=== PATIENT | male | born 1975 | race Caucasian/White ===

== ENCOUNTER → 2016-05-04 | Outpatient (CLI) | payer BC, OTHER ==
[2016-05-04 15:46] VITALS: BP 144/72; PULSE 60; RESP 16; TEMP 98.5; BMI 42.6
--- NOTE | 2016-05-15 20:08 | P.PN ---
Progress Note - Text DATE OF SERVICE: 05/04/2016 CHIEF COMPLAINT: Follow up sleeve gastrectomy. HISTORY OF PRESENT ILLNESS: Lang Lozoya is a 41-year-old gentleman who is now 2 years out from a sleeve gastrectomy on April 29, 2014. At his height of 6 feet 1 inch, his initial weight was 465 pounds. Today he comes in weighing 327 pounds. He has maintained a 138-pound weight loss. Body mass index is reduced from 60.6 down to 42.6. BMI point reduction is 18 points. He has achieved 50% excess weight loss. Since his last visit 1 month ago, he has actually gained 17 pounds, despite undergoing panniculectomy removal of over 10 pounds of skin. He comes in with complaints of new right-sided flank pain. Please note that his panniculectomy was 01/25/2016 and he is now over 3 months out. PAST MEDICAL HISTORY: 1. Dyslipidemia. 2. Diabetes type 2, resolved. 3. Hypertension. 4. Super morbid obesity. 5. Osteoarthritis. 6. Gout. 7. Panniculitis. PAST SURGICAL HISTORY: 1. Multiple orthopedic procedures of the ankles and knees. 2. Laparoscopic cholecystectomy. 3. Upper endoscopy. 4. Sleep study. 5. Status post sleeve gastrectomy. 6. Excision of back mass. 7. Status post panniculectomy. MEDICATIONS: 1. Multivitamin. 2. [place]. 3. Cipro. 4. Aspirin. ALLERGIES: Denies. SOCIAL HISTORY: Lifelong nontobacco user. He is . FAMILY HISTORY: Pertinent for super morbid obesity. He also has brother whose body mass index is over 40 who had a pulmonary embolism. No reports of gastrointestinal malignancies or cancers. REVIEW OF ORGAN SYSTEMS: CONSTITUTIONAL: [place] body weight for a 6 foot -2 frames total 180 pounds her initial weight of 4065 pounds. Present weight loss of 138 pounds. 50% excess weight loss. Body mass index reduced from 60.6 down to 42.6. GASTROINTESTINAL: No reports of gastroesophageal reflux disease. MUSCULOSKELETAL: History of gout along the bilateral feet, however, without recent attacks. Osteoarthritis of the bilateral hips and back, improved. RESPIRATORY: Moderate improvement of obstructive sleep apnea. HEENT: Denies any troubles with vision or hearing. ENDOCRINE: No reports of hypothyroidism. CARDIOVASCULAR: No reports of heart attack or chest pain. NEURO: No reports of seizure disorders or headaches. PSYCH: No reports of suicidal ideation; however, depression, controlled with Celexa. HEMATOLOGIC: Family history of DVTs including pulmonary embolism in his brother. PHYSICAL EXAM: VITAL SIGNS: 98.5, 60, 16, 144/72, 6 feet 1-1/2 inches, 327 pounds. Body mass index of 42.6. Percent excess weight loss of 50%. ABDOMEN: Soft. No recurrent palpable panniculitis. No ventral hernia. Tenderness noted along the right flank. ASSESSMENT: 1. Morbid obesity due to excess caloric intake. 2. Body mass index reduced from 63.1 down to 42.6. 3. History of gout. 4. Osteoarthritis of the lower back including the knees and ankles. 5. Status post sleeve gastrectomy. 6. Protein malnutrition secondary to inadequate protein intake. 7. Hypertension. 8. Diabetes type 2, resolved. 9. Dyslipidemia. 10. Vitamin A deficiency. 11. Hypothyroidism. 12. Secondary hyperparathyroidism. 13. Panniculitis, resolved. 14. Status post massive weight loss of 133 pounds. 15. Secondary hyperparathyroidism. 16. Iron deficiency anemia. 17. Status post panniculectomy. 18. Dietary surveillance and counseling. PLAN: 1. As he has new onset pain despite his surgery being over 3 months ago, he has a moderate weight gain, which puts him at risk for tearing along his new panniculectomy site. Recommend ultrasound of the right flank with possible fluid aspiration should a fluid collection be encountered. 2. In the interim, he has limited lifting as to prevent any recurrence of his ventral hernia. 3. I recommend bariatric metabolic panel, as he is now 2 years out. 4. Recommend followup upon completion of his bariatric metabolic panel as well as labs for further detail.
== END | disposition home or self-care (01) ==
LOC: BARWHC3 15:32
PROVIDERS: ATTEND Surgery Plastic and Reconstructive Surgery
DX: Z48.815 Encounter for surgical aftercare following surgery on the digestive system (principal); Z98.84 Bariatric surgery status; E21.1 Secondary hyperparathyroidism, not elsewhere classified; E89.1 Postprocedural hypoinsulinemia; D50.8 Other iron deficiency anemias; E44.0 Moderate protein-calorie malnutrition; E55.9 Vitamin D deficiency, unspecified; K74.1 Hepatic sclerosis; N19 Unspecified kidney failure; K50.90 Crohn's disease, unspecified, without complications; Z79.899 Other long term (current) drug therapy; M79.3 Panniculitis, unspecified; Z68.41 Body mass index [BMI] 40.0-44.9, adult; R10.12 Left upper quadrant pain
CPT/HCPCS: 99211

== ENCOUNTER 2016-05-13 08:49 | Day surgery (SDC) | payer BC, OTHER ==
[2016-05-13 09:03] VITALS: RESP 16; TEMP 98.1
[2016-05-13 10:17] VITALS: BP 125/80; PULSE 68
--- NOTE | 2016-05-13 12:46 | US ---
EXAMINATION TYPE: US asp abscess/hemat/cyst DATE OF EXAM: 05/13/2016 10:19 AM HISTORY: Seroma and flank pain FINDINGS: Maximal barrier technique was utilized, ultrasound used with sterile technique. The skin o verlying a suitable path to the fluid was localized with ultrasound and the overlying skin prepped an d draped. Lidocaine was used for local anesthesia. A skin eusebio made with a scalpel. Access was gai mike under direct ultrasound guidance to the fluid with an 18-gauge needle. Aspiration was performed. 45 cc of mostly serous , minimal sanguinous fluid returned. Needle was removed. Hemostasis achieved. No immediate complication and the patient remained in stable condition. IMPRESSION: STATUS POST ULTRASOUND GUIDED SEROMA DRAINAGE, THIS PROCEDURE WAS PERFORMED BY THE UNDERS IGNED.
== END 2016-05-13 10:20 | disposition home or self-care (01) ==
LOC: RADPROMAIN 08:49
PROVIDERS: ATTEND Surgery Plastic and Reconstructive Surgery
DX: R10.32 Left lower quadrant pain (principal)
CPT/HCPCS: 10160

== ENCOUNTER → 2016-06-02 | Outpatient (CLI) | payer BC, OTHER ==
[2016-06-02 10:42] VITALS: BP 137/80; PULSE 85; RESP 16; TEMP 98.2; BMI 59.5
[2016-06-02 11:58] LABS: CH 28.2; CHCM 32.2; HCT 43.2 % (39.0-53.0); HDW 2.47; HGB 13.8 gm/dL (13.0-17.5); MCH 28.1 pg (25.0-35.0); MCV 87.7 fL (80.0-100.0); Mean Platelet Volume 8.1; RBC 4.93 m/uL (4.30-5.90); RDW 13.3 % (11.5-15.5); WBC 7.3 k/uL (3.8-10.6)
[2016-06-02 12:42] LABS: ALT 26 U/L (21-72); AST 21 U/L (17-59); Alkaline Phosphatase 92 U/L (38-126); Anion Gap 11 mmol/L; Blood Urea Nitrogen 25 mg/dL (9-20); Calcium 9.3 mg/dL (8.4-10.2); Carbon Dioxide 27 mmol/L (22-30); Chloride 106 mmol/L (98-107); Cholesterol 224 mg/dL (<200); Glucose 90 mg/dL (74-99); HDL Cholesterol 52 mg/dL (40-60); Iron 68 ug/dL (49-181); Magnesium 2.1 mg/dL (1.6-2.3); Non-African American GFR(MDRD) >60 (>60 ml/min/1.73 sqM); Phosphorous 2.9 mg/dL (2.5-4.5); Potassium 4.3 mmol/L (3.5-5.1); Sodium 144 mmol/L (137-145); Total Bilirubin 0.5 mg/dL (0.2-1.3); Total Protein 7.4 g/dL (6.3-8.2); Triglycerides 117 mg/dL (<150)
[2016-06-02 12:43] LABS: INR 1.1 (<1.1); Partial Thromboplastin Time 24.3 sec (22.0-30.0); Prothrombin Time 10.7 sec (9.0-12.0)
[2016-06-02 12:59] LABS: Prealbumin 20 mg/dL (18-36); Total Iron Binding Capacity 296 ug/dL (261-462)
[2016-06-02 13:50] LABS: Vitamin B12 417 pg/mL (239-931)
[2016-06-02 14:07] LABS: Hemoglobin A1C 5.6 % (4.2-6.1)
[2016-06-08 14:03] LABS: Selenium 179 mcg/L (63-160)
--- NOTE | 2016-07-24 20:03 | P.PN ---
Progress Note - Text DATE OF SERVICE: 06/02/2016 CHIEF COMPLAINT: Followup sleeve gastrectomy. HISTORY OF PRESENT ILLNESS: Lang Lozoya is a 41-year-old gentleman who is over 2 years out from a sleeve gastrectomy. At his height of 6 foot 1 inch, his ideal body weight is 181 pounds. His initial weight was 465 pounds. Today he comes in weighing 320 pounds. Since his last visit a month ago, he has lost 7 pounds. His total weight loss is 145 pounds. His percent excess weight loss is over 50%. He is still, however, 189 pounds overweight. Body mass index has been reduced from 60.6 down to 41.7. He has a history of a panniculectomy performed in January 2016. He also was complaining of swelling and pain along the right flank which is consistent with seroma. Now he presents for further evaluation and management. Since his panniculectomy, incidentally, he has regained moderate weight of over 20+ pounds. PAST MEDICAL HISTORY: 1. Dyslipidemia. 2. Diabetes type 2, resolved. 3. Hypertension. 4. Super morbid obesity. 5. Osteoarthritis. 6. Gout. 7. Panniculitis. PAST SURGICAL HISTORY: 1. Multiple orthopedic procedures of the ankles and knees. 2. Laparoscopic cholecystectomy. 3. Upper endoscopy. 4. Sleep study. 5. Status post sleeve gastrectomy. 6. Excision of back mass. 7. Status post panniculectomy. MEDICATIONS: 1. Multivitamin. 2. [place]. 3. Cipro. 4. Aspirin. ALLERGIES: Denies. SOCIAL HISTORY: Lifelong nontobacco user. He is . FAMILY HISTORY: Pertinent for super morbid obesity. He also has brother whose body mass index is over 40 who had a pulmonary embolism. No reports of gastrointestinal malignancies or cancers. REVIEW OF SYSTEMS: CONSTITUTIONAL: [place] body weight of 188 pounds. Initial weight of 465 pounds. Total maintained weight loss of 145 pounds. Today he comes in weighing 320 pounds. Since his last visit a month ago, he has lost 7 pounds. His total weight loss is 145 pounds. His percent excess weight loss is over 50%. He is still, however, 189 pounds overweight. Body mass index has been reduced from 60.6 down to 41.7. GASTROINTESTINAL: No reports of gastroesophageal reflux disease. MUSCULOSKELETAL: History of gout of the bilateral feet without any recent attacks. Osteoarthritis of the bilateral hips and back is improved. RESPIRATORY: Moderate improvement of obstructive sleep apnea. HEENT: Denies any troubles with vision or hearing. ENDOCRINE: No reports of hypothyroidism. CARDIOVASCULAR: No reports of heart attack or chest pain. NEURO: No reports of seizure disorders or headaches. PSYCH: No reports of suicidal ideation; however, depression, controlled with Celexa. HEMATOLOGIC: Family history of DVTs including pulmonary embolism in his brother. PHYSICAL EXAM: VITAL SIGNS: 98.2, 85, 16, 137/80, 6 foot 1-04/18, 320 pounds, body mass index of 41.7. ABDOMEN: Soft, nontender, nondistended. Decreased swelling noted along the right flank. No palpable incisional hernias. GENERAL: Well-developed male in no distress. HEENT: No sclera icterus. Extraocular movements grossly intact. Moist buccal mucosa. Head is atraumatic, normocephalic. Hears conversational speech. No nasal drainage. NECK: Supple without lymphadenopathy. No JV distention. CHEST: Non-labored respirations and equal bilateral excursions. CARDIOVASCULAR: Regular rate and rhythm. Palpable 2+ radial pulses. MUSCULOSKELETAL: No clubbing, cyanosis or edema. NEUROLOGIC: No focal or lateralizing signs. PSYCH: Appropriate affect. Alert and oriented to person, place and time. LABS: Hemoglobin normal at 13.8. BUN elevated at 25. Cholesterol elevated at 224. LDL elevated at 149. Vitamin A low at 35. Thyroid-stimulating hormone suppressed at 0.247. Parathyroid hormone elevated at 79.4. Selenium elevated at 179. STUDIES: Ultrasound of the right flank demonstrated at 45 mL of seroma, which was aspirated. ASSESSMENT: 1. Morbid obesity due to excess caloric intake. 2. Body mass index reduced from 60.6 down to 41.7. 3. History of gout. 4. Osteoarthritis of the lower back including the knees and ankles. 5. Status post sleeve gastrectomy. 6. Protein malnutrition secondary to inadequate protein intake. 7. Hypertension. 8. Diabetes type 2, resolved. 9. Dyslipidemia. 10. Vitamin A deficiency. 11. Hypothyroidism. 12. Secondary hyperparathyroidism. 13. Panniculitis, resolved. 14. Status post weight loss 145 pounds. 15. Secondary hyperparathyroidism. 16. Iron deficiency anemia. 17. Status post panniculectomy. 18. Dietary surveillance and counseling. 19. Recent weight regain following weight loss procedure. 20. History of seroma right flank. PLAN: 1. I reviewed with him that weight gain following his panniculectomy including recent ventral hernia repair can also puts him at risk of tearing his recent surgery, hence his seromas. 2. I adamantly forewarned him to actually continue to lose weight preferably to his baseline of 300 pounds. 3. He will benefit from additional weight loss as he is still at least 189 pounds overweight. 4. Recommend followup at minimum on a yearly basis as well. 5. Recommend calcium intake of at least 1200 mg daily.
== END | disposition home or self-care (01) ==
LOC: BARWHC3 10:05
PROVIDERS: ATTEND Surgery Plastic and Reconstructive Surgery
DX: Z48.815 Encounter for surgical aftercare following surgery on the digestive system (principal); E66.01 Morbid (severe) obesity due to excess calories; Z98.84 Bariatric surgery status; E21.1 Secondary hyperparathyroidism, not elsewhere classified; E89.1 Postprocedural hypoinsulinemia; D50.8 Other iron deficiency anemias; E44.0 Moderate protein-calorie malnutrition; E55.9 Vitamin D deficiency, unspecified; K74.1 Hepatic sclerosis; N19 Unspecified kidney failure; K50.90 Crohn's disease, unspecified, without complications
CPT/HCPCS: 80053; 80061; 82306; 82525; 82607; 82728; 82746; 83036; 83540; 83550; 83735; 83970; 84100; 84134; 84255; 84425; 84443; 84590; 84630; 85027; 85610; 85730; 99211

== ENCOUNTER → 2017-05-17 | Outpatient (CLI) | payer BC ==
[2017-05-17 14:18] VITALS: BP 145/97; PULSE 70; TEMP 98.6
[2017-05-17 14:36] VITALS: BMI 46.0
--- NOTE | 2017-06-18 17:56 | P.PN ---
Subjective Progress Note Date: 05/17/17 DATE OF SERVICE: 05/17/2017 CHIEF COMPLAINT: Followup sleeve gastrectomy. HISTORY OF PRESENT ILLNESS: Lang Lozoya is a 42-year-old gentleman who is status post sleeve gastrectomy, 04/29/2014. He is 3 years out. Since his panniculectomy over a year ago, he has gained moderate weight of 34 pounds since his last visit 1 year ago. He denies any heartburn. He is eager to get back on track. 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 He still reports bilateral foot pain since placement of a foot brace and his pain has improved. At his height of 6 foot 1 inch, his ideal body weight is 181 pounds. His initial weight was 465 pounds. Today he comes in weighing 353 pounds. His total weight loss is 111 pounds. His percent excess weight loss is over 40%. He is still, however, 165 pounds overweight. Body mass index has been reduced from 61.5 down to 46.7. He has a history of a panniculectomy performed in January 2016. No reports of abdominal wall seroma. PAST MEDICAL HISTORY: 1. Dyslipidemia. 2. Diabetes type 2, resolved. 3. Hypertension. 4. Super morbid obesity, previous body mass index 61.5. 5. Osteoarthritis. 6. Gout. 7. Obstructive sleep apnea PAST SURGICAL HISTORY: 1. Multiple orthopedic procedures of the ankles and knees. 2. Laparoscopic cholecystectomy. 3. Upper endoscopy. 4. Sleep study. 5. Status post sleeve gastrectomy. 6. Excision of back mass. 7. Status post panniculectomy. MEDICATIONS: 1. Multivitamin. ALLERGIES: Denies. SOCIAL HISTORY: Lifelong nontobacco user. He is . FAMILY HISTORY: Pertinent for super morbid obesity. He also has brother whose body mass index is over 40 who had a pulmonary embolism. No reports of gastrointestinal malignancies or cancers. REVIEW OF SYSTEMS: CONSTITUTIONAL: [place] body weight of 188 pounds. Initial weight of 465 pounds. Total maintained weight loss of 112 pounds. Today he comes in weighing 353 pounds. His percent excess weight loss is 40%. He is still, however, 165 pounds overweight. Body mass index has been reduced from 61.5 down to 46.1. He has gained 33 pounds since his last visit May 2016. GASTROINTESTINAL: No reports of gastroesophageal reflux disease. No dumping syndrome. MUSCULOSKELETAL: History of gout of the bilateral feet without any recent attacks. Osteoarthritis of the bilateral hips and back is improved. RESPIRATORY: Moderate improvement of obstructive sleep apnea. HEENT: Denies any troubles with vision or hearing. ENDOCRINE: No reports of hypothyroidism. CARDIOVASCULAR: No reports of heart attack or chest pain. NEURO: No reports of seizure disorders or headaches. PSYCH: No reports of suicidal ideation; however, depression, controlled with Celexa. HEMATOLOGIC: Family history of DVTs including pulmonary embolism in his brother. PHYSICAL EXAM: VITAL SIGNS: 6 foot 1-04/18, 353 pounds, body mass index of 46.1 Vital Signs Temp 98.6 F 05/17/17 14:15 Pulse 70 05/17/17 14:15 Resp BP 145/97 05/17/17 14:15 Pulse Ox ABDOMEN: Soft, nontender, nondistended. No incisional hernias. GENERAL: Well-developed male in no distress. HEENT: No sclera icterus. Extraocular movements grossly intact. Moist buccal mucosa. Head is atraumatic, normocephalic. Hears conversational speech. No nasal drainage. NECK: Supple without lymphadenopathy. No JV distention. CHEST: Non-labored respirations and equal bilateral excursions. CARDIOVASCULAR: Regular rate and rhythm. Palpable 2+ radial pulses. MUSCULOSKELETAL: No clubbing, cyanosis or edema. NEUROLOGIC: No focal or lateralizing signs. PSYCH: Appropriate affect. Alert and oriented to person, place and time. SKIN: Good skin turgor. Well perfused. ASSESSMENT: 1. Morbid obesity due to excess caloric intake. 2. Body mass index reduced from 61.5 down to 46.1. 3. History of gout. 4. Osteoarthritis of the lower back including the knees and ankles. 5. Status post sleeve gastrectomy. 6. Dietary surveillance and counseling. 7. Hypertension. 8. Diabetes type 2, resolved. 9. Dyslipidemia. 10. Vitamin A deficiency. 11. Hypothyroidism. 12. Secondary hyperparathyroidism. 13. Panniculitis, resolved. 14. Status post weight loss 112 pounds. 15. Status post panniculectomy. 16. Recent weight regain following weight loss procedure. PLAN: 1. Recommend bariatric panel. 2. Recommend 2 week high-protein low caloric diet. 3. Recommend follow-up in 3-4 weeks. 4. Referral to bariatric dietitian advised. 5. Return to high-protein diet placed over 120 g daily. Objective - Vital Signs Vital signs: Vital Signs Temp 98.6 F 05/17/17 14:15 Pulse 70 05/17/17 14:15 Resp BP 145/97 05/17/17 14:15 Pulse Ox Intake & Output 05/16/17 05/17/17 05/17/17 18:59 06:59 18:59 Weight 160.526 kg
== END | disposition home or self-care (01) ==
LOC: BARWHC3 13:21
PROVIDERS: ATTEND Surgery Plastic and Reconstructive Surgery
DX: Z09 Encounter for follow-up examination after completed treatment for conditions other than malignant neoplasm (principal); E66.01 Morbid (severe) obesity due to excess calories; M10.9 Gout, unspecified; M17.0 Bilateral primary osteoarthritis of knee; M19.072 Primary osteoarthritis, left ankle and foot; M19.071 Primary osteoarthritis, right ankle and foot; I10 Essential (primary) hypertension; E78.5 Hyperlipidemia, unspecified; E50.9 Vitamin A deficiency, unspecified; E03.9 Hypothyroidism, unspecified; N25.81 Secondary hyperparathyroidism of renal origin; G47.33 Obstructive sleep apnea (adult) (pediatric); Z98.890 Other specified postprocedural states; Z71.3 Dietary counseling and surveillance; Z98.84 Bariatric surgery status; Z68.42 Body mass index [BMI] 45.0-49.9, adult; Z79.899 Other long term (current) drug therapy
CPT/HCPCS: 97803; 99211

== ENCOUNTER → 2017-05-26 | Outpatient (CLI) | payer BC ==
[2017-05-26 10:16] LABS: HCT 46.9 % (39.0-53.0); HGB 15.1 gm/dL (13.0-17.5); MCHC 32.1 g/dL (31.0-37.0); MCV 90.4 fL (80.0-100.0); Mean Platelet Volume 6.8; Platelet Count 211 k/uL (150-450); RBC 5.19 m/uL (4.30-5.90); RDW 12.6 % (11.5-15.5); WBC 6.7 k/uL (3.8-10.6)
[2017-05-26 10:20] LABS: INR 1.1 (<1.2); Partial Thromboplastin Time 24.8 sec (22.0-30.0); Prothrombin Time 10.9 sec (9.0-12.0)
[2017-05-26 10:36] LABS: Cholesterol 213 mg/dL (<200); Glucose 106 mg/dL (74-99); Total Protein 7.1 g/dL (6.3-8.2); Triglycerides 87 mg/dL (<150)
[2017-05-26 10:37] LABS: ALT 28 U/L (21-72); AST 27 U/L (17-59); Alkaline Phosphatase 75 U/L (38-126); Anion Gap 9 mmol/L; Blood Urea Nitrogen 14 mg/dL (9-20); Calcium 9.9 mg/dL (8.4-10.2); Carbon Dioxide 29 mmol/L (22-30); Chloride 106 mmol/L (98-107); HDL Cholesterol 37 mg/dL (40-60); LDL Cholesterol,Calculated 159 mg/dL (0-99); Magnesium 2.1 mg/dL (1.6-2.3); Phosphorus 2.4 mg/dL (2.5-4.5); Potassium 4.3 mmol/L (3.5-5.1); Sodium 144 mmol/L (137-145); Total Bilirubin 0.5 mg/dL (0.2-1.3)
[2017-05-26 16:18] LABS: Iron Saturation 29.32 (15.00-50.00)
[2017-05-26 16:26] LABS: Vitamin D 25 Hydroxy 19.1 ng/mL (30.0-100.0)
[2017-05-26 16:41] LABS: Folate, Serum 13.8 ng/mL
[2017-05-26 18:24] LABS: Parathyroid Hormone Intact 44.3 pg/mL (14.0-72.0)
[2017-05-26 19:09] LABS: Hemoglobin A1C 5.2 % (4.0-6.0)
[2017-05-29 12:14] LABS: Zinc, Serum 65 ug/dL (60-130)
[2017-05-30 06:11] LABS: Vitamin A 35 ug/dL (38-106)
[2017-05-30 15:31] LABS: Selenium 126 mcg/L (63-160)
[2017-05-31 05:04] LABS: Vitamin B1 66 ug/L (38-122)
== END | disposition home or self-care (01) ==
LOC: LABWHC1 09:17
PROVIDERS: ATTEND Surgery Plastic and Reconstructive Surgery
DX: E66.01 Morbid (severe) obesity due to excess calories (principal); E21.1 Secondary hyperparathyroidism, not elsewhere classified; E89.1 Postprocedural hypoinsulinemia; D50.8 Other iron deficiency anemias; E55.9 Vitamin D deficiency, unspecified; K74.1 Hepatic sclerosis; E44.1 Mild protein-calorie malnutrition; K50.90 Crohn's disease, unspecified, without complications
CPT/HCPCS: 36415; 80053; 80061; 82306; 82525; 82607; 82728; 82746; 83036; 83540; 83550; 83735; 83970; 84100; 84134; 84255; 84425; 84443; 84590; 84630; 85027; 85610; 85730

== ENCOUNTER 2017-11-18 10:08 | Emergency (ER) | payer BC ==
[2017-11-18 10:20] VITALS: RESP 18; TEMP 98.4
[2017-11-18] MEDS ORDERED: SODIUM CHLORIDE 0.9% 1,000 ML IV STA (10:42)
[2017-11-18] MEDS ORDERED: MORPHINE SULFATE 4 MG/ML SYRINGE IV STA (10:42)
[2017-11-18] MEDS ORDERED: SODIUM CHLORIDE 0.9% 500 ML IV STA (10:42)
--- NOTE | 2017-11-18 11:09 | ED ---
General Adult HPI - General Chief complaint: Abdominal Pain Stated complaint: Trouble breathing with RUQ pin Time Seen by Provider: 11/18/17 10:38 Source: patient, RN notes reviewed, old records reviewed Mode of arrival: ambulatory Limitations: no limitations - History of Present Illness Initial comments: This is a 42-year-old male the ER for evaluation. Patient is complaining of right-sided abdominal pain right flank pain. Patient has significant medical history for bariatric surgery as well as multiple other abdominal surgeries. Patient seems related events to massage that he had a couple days ago but he states he has worsening pain with a deep breath and pain in his right side of his abdomen. Denies fevers. Bowel movements are normal with no nausea vomiting. - Related Data Home Medications Medication Instructions Recorded Confirmed Multivitamins, Thera [Multivitamin 1 tab PO DAILY 01/19/16 05/17/17 (formulary)] Allergies Allergy/AdvReac Type Severity Reaction Status Date / Time cephalexin [From Keflex] AdvReac Rash/Hives Verified 05/18/17 15:40 Review of Systems ROS Statement: Those systems with pertinent positive or pertinent negative responses have been documented in the HPI. ROS Other: All systems not noted in ROS Statement are negative. 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 PANNICULECTOMY January 2016; Past Anesthesia/Blood Transfusion Reactions: No Reported Reaction Additional Past Anesthesia/Blood Transfusion Reaction / Comment(s): STATES TAKES LONG TIME TO WAKE UP Past Psychological History: No Psychological Hx Reported Smoking Status: Never smoker Past Alcohol Use History: None Reported Past Drug Use History: None Reported - Past Family History Father History Unknown: Yes Family Medical History: Congestive Heart Failure (CHF), Myocardial Infarction ( [place]) Additional Family Medical History / Comment(s): SEVERAL [place]'S Mother Family Medical History: No Reported History Additional Family Medical History / Comment(s): HEALTHY Brother(s) History Unknown: Yes Family Medical History: Deep Vein Thrombosis (DVT), Pulmonary Embolus General Exam Limitations: no limitations General appearance: alert, in no apparent distress, obese Head exam: Present: atraumatic, normocephalic, normal inspection Eye exam: Present: normal appearance, PERRL, EOMI. Absent: scleral icterus, conjunctival injection, periorbital swelling ENT exam: Present: normal exam, mucous membranes moist Neck exam: Present: normal inspection. Absent: tenderness, meningismus, lymphadenopathy Respiratory exam: Present: normal lung sounds bilaterally. Absent: respiratory distress, wheezes, rales, rhonchi, stridor Cardiovascular Exam: Present: regular rate, normal rhythm, normal heart sounds. Absent: systolic murmur, diastolic murmur, rubs, gallop, clicks GI/Abdominal exam: Present: soft, tenderness (Right-sided abdominal tenderness) , normal bowel sounds. Absent: distended, guarding, rebound, rigid Extremities exam: Present: normal inspection, full ROM, normal capillary refill. Absent: tenderness, pedal edema, joint swelling, calf tenderness Back exam: Present: normal inspection Neurological exam: Present: alert, oriented X3, CN II-XII intact Psychiatric exam: Present: normal affect, normal mood Skin exam: Present: warm, dry, intact, normal color. Absent: rash Course Vital Signs 11/18/17 10:15 Temperature 98.4 F Pulse Rate 75 Respiratory 18 Rate Blood Pressure 145/95 - Reevaluation(s) Reevaluation #1: 11/18/17 13:15 Patient's pain is currently controlled Medical Decision Making - Medical Decision Making 39 female the ER for evaluation of nonspecific abdominal pain CT abdomen and pelvis negative for acute disease patient will be discharged home - Lab Data Result diagrams: 11/18/17 11:28 11/18/17 11:28 Lab Results 11/18/17 11/18/17 11/18/17 Range/Units 11:28 11:28 11:28 WBC 6.6 (3.8-10.6) k/uL RBC 5.18 (4.30-5.90) m/uL Hgb 14.7 (13.0-17.5) gm/dL Hct 44.9 (39.0-53.0) % MCV 86.7 (80.0-100.0) fL MCH 28.4 (25.0-35.0) pg MCHC 32.7 (31.0-37.0) g/dL RDW 12.9 (11.5-15.5) % Plt Count 197 (150-450) k/uL Neutrophils % 53 % Lymphocytes % 38 % Monocytes % 5 % Eosinophils % 3 % Basophils % 0 % Neutrophils # 3.5 (1.3-7.7) k/uL Lymphocytes # 2.5 (1.0-4.8) k/uL Monocytes # 0.3 (0-1.0) k/uL Eosinophils # 0.2 (0-0.7) k/uL Basophils # 0.0 (0-0.2) k/uL Sodium 143 (137-145) mmol/L Potassium 4.0 (3.5-5.1) mmol/L Chloride 110 H (98-107) mmol/L Carbon Dioxide 25 (22-30) mmol/L Anion Gap 8 mmol/L BUN 21 H (9-20) mg/dL Creatinine 0.70 (0.66-1.25) mg/dL Est GFR (CKD-EPI)AfAm >90 (>60 ml/min/1.73 sqM) Est GFR (CKD-EPI)NonAf >90 (>60 ml/min/1.73 sqM) Glucose 112 H (74-99) mg/dL Plasma Lactic Acid Gerard (0.7-2.0) mmol/L Calcium 9.2 (8.4-10.2) mg/dL Total Bilirubin 0.4 (0.2-1.3) mg/dL AST 25 (17-59) U/L ALT 30 (21-72) U/L Alkaline Phosphatase 62 (38-126) U/L Total Creatine Kinase 74 (55-170) U/L CK-MB (CK-2) 1.0 (0.0-2.4) ng/mL CK-MB (CK-2) Rel Index 1.4 Troponin I <0.012 (0.000-0.034) ng/mL Total Protein 6.9 (6.3-8.2) g/dL Albumin 4.0 (3.5-5.0) g/dL Amylase 45 (30-110) U/L Lipase 49 (23-300) U/L 11/18/17 Range/Units 11:28 WBC (3.8-10.6) k/uL RBC (4.30-5.90) m/uL Hgb (13.0-17.5) gm/dL Hct (39.0-53.0) % MCV (80.0-100.0) fL MCH (25.0-35.0) pg MCHC (31.0-37.0) g/dL RDW (11.5-15.5) % Plt Count (150-450) k/uL Neutrophils % % Lymphocytes % % Monocytes % % Eosinophils % % Basophils % % Neutrophils # (1.3-7.7) k/uL Lymphocytes # (1.0-4.8) k/uL Monocytes # (0-1.0) k/uL Eosinophils # (0-0.7) k/uL Basophils # (0-0.2) k/uL Sodium (137-145) mmol/L Potassium (3.5-5.1) mmol/L Chloride (98-107) mmol/L Carbon Dioxide (22-30) mmol/L Anion Gap mmol/L BUN (9-20) mg/dL Creatinine (0.66-1.25) mg/dL Est GFR (CKD-EPI)AfAm (>60 ml/min/1.73 sqM) Est GFR (CKD-EPI)NonAf (>60 ml/min/1.73 sqM) Glucose (74-99) mg/dL Plasma Lactic Acid Gerard 1.4 (0.7-2.0) mmol/L Calcium (8.4-10.2) mg/dL Total Bilirubin (0.2-1.3) mg/dL AST (17-59) U/L ALT (21-72) U/L Alkaline Phosphatase (38-126) U/L Total Creatine Kinase (55-170) U/L CK-MB (CK-2) (0.0-2.4) ng/mL CK-MB (CK-2) Rel Index Troponin I (0.000-0.034) ng/mL Total Protein (6.3-8.2) g/dL Albumin (3.5-5.0) g/dL Amylase (30-110) U/L Lipase (23-300) U/L - Radiology Data Radiology results: report reviewed (CT head and pelvis negative for acute disease), image reviewed Disposition Clinical Impression: Abdominal pain Disposition: HOME SELF-CARE Condition: Good Instructions: Abdominal Pain (ED) Is patient prescribed a controlled substance at d/c from ED?: No Referrals: Rodríguez Miranda III, MD [Primary Care Provider] - 1-2 days
[2017-11-18 11:38] LABS: Basophils % (A) 0 %; Eosinophils # (A) 0.2 k/uL (0-0.7); Eosinophils % (A) 3 %; HCT 44.9 % (39.0-53.0); HGB 14.7 gm/dL (13.0-17.5); Lymphocytes # (A) 2.5 k/uL (1.0-4.8); Lymphocytes % (A) 38 %; MCH 28.4 pg (25.0-35.0); MCHC 32.7 g/dL (31.0-37.0); MCV 86.7 fL (80.0-100.0); Mean Platelet Volume 6.7; Monocytes # (A) 0.3 k/uL (0-1.0); Monocytes % (A) 5 %; Neutrophils # (A) 3.5 k/uL (1.3-7.7); Neutrophils % (A) 53 %; Platelet Count 197 k/uL (150-450); RBC 5.18 m/uL (4.30-5.90); RDW 12.9 % (11.5-15.5); WBC 6.6 k/uL (3.8-10.6)
[2017-11-18 11:47] LABS: ALT 30 U/L (21-72); AST 25 U/L (17-59); Alkaline Phosphatase 62 U/L (38-126); Amylase 45 U/L (30-110); Anion Gap 8 mmol/L; Blood Urea Nitrogen 21 mg/dL (9-20); Calcium 9.2 mg/dL (8.4-10.2); Carbon Dioxide 25 mmol/L (22-30); Chloride 110 mmol/L (98-107); Glucose 112 mg/dL (74-99); Lipase 49 U/L (23-300); Sodium 143 mmol/L (137-145); Total Bilirubin 0.4 mg/dL (0.2-1.3); Total Protein 6.9 g/dL (6.3-8.2)
[2017-11-18 12:05] LABS: Creatine Kinase 74 U/L (55-170)
[2017-11-18 12:19] LABS: Troponin I <0.012 ng/mL (0.000-0.034)
--- NOTE | 2017-11-18 13:01 | CT ---
EXAMINATION TYPE: CT abdomen pelvis w con DATE OF EXAM: 11/18/2017 REFERENCE: Previous study dated 02/20/2016. HISTORY: abdominal pain HISTORY: RUQ pain CT DLP: 2079 mGy Automated exposure control for dose reduction was used. TECHNIQUE: Helical acquisition through the abdomen and pelvis was obtained following the oral ingesti on of without Oral Contrast and following intravenous administration of 100 mL of Isovue 300. The marion a was reformatted in axial, coronal and sagittal projections. FINDINGS: There is atelectatic changes at the dependent portions of both lungs. There is no pleural or pericardial fluid. The heart is upper limits of normal in size. Within the abdomen, is been a previous gastric sleeve procedure. There is a small hiatal hernia. The gallbladder is been removed. The liver and spleen are normal. Both adrenal glands are normal. The pancreas is unremarkable. Both kidneys demonstrate function and appear morphologically normal. There is no significant retroperitoneal or iliac adenopathy. There are some nonspecific inguinal lymp h nodes present. The largest measures just over 1 cm. The bladder is unremarkable. There is no significant diverticular change and there is no radiographic evidence of diverticulitis. The appendix is normal. Small bowel caliber is normal. There is no free fluid and no free air. There is stable postsurgical deformity of the rectus sheath. This is unchanged from previous. There is facet arthropathy in the lower lumbar spine. This hypertrophic spondylosis in the lower dors al spine. IMPRESSION: 1. NO ACUTE INFLAMMATORY ABNORMALITY. 2. POSTSURGICAL CHANGE. 3. DEGENERATIVE CHANGES WITHIN THE SPINE.
[2017-11-18 13:24] LABS: Appearance,Urine Clear (Clear); Bilirubin,Urine Negative (Negative); Blood,Urine Negative (Negative); Color,Urine Yellow; Glucose,Urine (UA) Negative (Negative); Ketones,Urine Negative (Negative); Leukocyte Esterase,Urine Negative (Negative); Nitrite,Urine Negative (Negative); PH, Urine 6.5 (5.0-8.0); Protein,Urine Negative (Negative); Specific Gravity,Urine 1.039 (1.001-1.035); Urobilinogen,Urine <2.0 mg/dL (<2.0)
[2017-11-18 13:54] VITALS: BP 148/79; PULSE 51
== END 2017-11-18 13:54 | disposition home or self-care (01) ==
LOC: EC 10:08
DX: R10.9 Unspecified abdominal pain (principal); Z88.1 Allergy status to other antibiotic agents; Z90.49 Acquired absence of other specified parts of digestive tract; Z98.84 Bariatric surgery status
CPT/HCPCS: 36415; 80053; 82150; 82550; 82553; 83605; 83690; 84484; 85025; 81003; 87086; 74177; 99284; 96374; 96361 ×2; J2270; Q9967

== ENCOUNTER 2017-11-18 21:18 | Emergency (ER) | payer BC ==
[2017-11-18 21:46] VITALS: BP 153/97; PULSE 71; RESP 20; TEMP 98.7
--- NOTE | 2017-11-18 23:06 | ED ---
General Adult HPI - General Chief complaint: Abdominal Pain Stated complaint: Back Pain/WINNIE Time Seen by Provider: 11/18/17 22:16 Source: patient, family, RN notes reviewed, old records reviewed Mode of arrival: ambulatory Limitations: no limitations - History of Present Illness Initial comments: Chief complaint and history of present illness is a 42-year-old male here with his . The patient was seen emergency room earlier today because of pain to the right side of the abdomen. That time he had CAT scan done which did not show any acute irregularities. On reexamination at home and here the patient persists in having discomfort to what appears to be a muscular wall. He does do heavy lifting at work no direct injury noted. - Related Data Home Medications Medication Instructions Recorded Confirmed Multivitamins, Thera [Multivitamin 1 tab PO DAILY 01/19/16 05/17/17 (formulary)] Allergies Allergy/AdvReac Type Severity Reaction Status Date / Time cephalexin [From Keflex] AdvReac Rash/Hives Verified 11/18/17 21:45 Review of Systems ROS Statement: Those systems with pertinent positive or pertinent negative responses have been documented in the HPI. Review of systems a discomfort is readily reproducible with direct palpation over the area as well as twisting turning and sitting forward. When the patient sits for tightens the muscles in the area in question and he pushes on it or I push on it the pain is still there. Appears to be a positive Gilberto's sign for localized inflammation to the anterior abdominal wall. As noted above the patient had a CAT scan done with contrast which is reported to be negative by radiology just 12 hours ago. She has no other complaints at this time. Past medical problems significant for having lost 200 pounds after having had a bariatric sleeve surgery 3 years ago. Also has had a panniculectomy cholecystectomy. ROS Other: All systems not noted in ROS Statement are negative. 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 PANNICULECTOMY January 2016; Past Anesthesia/Blood Transfusion Reactions: No Reported Reaction Additional Past Anesthesia/Blood Transfusion Reaction / Comment(s): STATES TAKES LONG TIME TO WAKE UP Past Psychological History: No Psychological Hx Reported Smoking Status: Never smoker Past Alcohol Use History: None Reported Past Drug Use History: None Reported - Past Family History Father History Unknown: Yes Family Medical History: Congestive Heart Failure (CHF), Myocardial Infarction ( [place]) Additional Family Medical History / Comment(s): SEVERAL [place]'S Mother Family Medical History: No Reported History Additional Family Medical History / Comment(s): HEALTHY Brother(s) History Unknown: Yes Family Medical History: Deep Vein Thrombosis (DVT), Pulmonary Embolus General Exam - General Exam Comments Initial Comments: General: The patient is awake and alert, in no distress, and does not appear acutely ill. Vital signs are stable. Neck: The neck is supple, Cardiovascular: No chest pain, Respiratory: No shortness of breath Gastrointestinal: Patient has reproducible discomfort to a particular area on the right anterolateral abdomen. Appears to be muscular skeletal strain. No organomegaly appreciated. Positive cARNETTES SIGN. There is no tenderness to palpation in the midline. There is no obvious deformity. No rashes noted. Musculoskeletal: Normal upper or lower extremities. Limitations: no limitations Course Vital Signs 11/18/17 21:40 Temperature 98.7 F Pulse Rate 71 Respiratory 20 Rate Blood Pressure 153/97 O2 Sat by Pulse 98 Oximetry Medical Decision Making - Medical Decision Making Medical decision making;appears to have muscular skeletal strain to the abdominal wall to the right anterolateral area. Pain reproducible with twisting turning movement red palpation even when flexing the muscles. Patient had a normal CAT scan this morning. The patient will be advised to use ibuprofen with food and localized ice or heat whichever feels better. Advised follow-up with family physician. Disposition Clinical Impression: Abdominal wall pain Disposition: HOME SELF-CARE Condition: Fair Instructions: Abdominal Pain (ED) Additional Instructions: Apply ice or heat to the area of discomfort. Take pain medication as directed. Follow-up with family physician return emergency room as needed. Is patient prescribed a controlled substance at d/c from ED?: No Referrals: Rodríguez Miranda III, MD [Primary Care Provider] - 1-2 days Time of Disposition: 23:06
== END 2017-11-18 23:32 | disposition home or self-care (01) ==
LOC: EC 21:18
DX: R10.9 Unspecified abdominal pain (principal); Z90.49 Acquired absence of other specified parts of digestive tract; Z98.84 Bariatric surgery status; Z98.890 Other specified postprocedural states; Z88.1 Allergy status to other antibiotic agents
CPT/HCPCS: 99284

== ENCOUNTER 2019-09-12 11:24 | Emergency (ER) | payer BC ==
[2019-09-12 11:40] VITALS: TEMP 98.4
[2019-09-12] MEDS ORDERED: ASPIRIN 81 MG PO STA (11:58)
[2019-09-12 12:11] LABS: Basophils % (A) 1 %; Eosinophils # (A) 0.2 k/uL (0-0.7); Eosinophils % (A) 3 %; HGB 14.1 gm/dL (13.0-17.5); Lymphocytes # (A) 2.4 k/uL (1.0-4.8); Lymphocytes % (A) 34 %; MCH 29.7 pg (25.0-35.0); MCHC 32.8 g/dL (31.0-37.0); MCV 90.6 fL (80.0-100.0); Mean Platelet Volume 7.6; Monocytes # (A) 0.5 k/uL (0-1.0); Monocytes % (A) 6 %; Neutrophils # (A) 3.8 k/uL (1.3-7.7); Neutrophils % (A) 54 %; Platelet Count 186 k/uL (150-450); RBC 4.75 m/uL (4.30-5.90); RDW 12.5 % (11.5-15.5)
--- NOTE | 2019-09-12 12:23 | XR ---
EXAMINATION TYPE: XR chest 2V DATE OF EXAM: 09/12/2019 COMPARISON: 08/11/2015 HISTORY: Chest pain TECHNIQUE: Frontal and lateral views of the chest are obtained. FINDINGS: There is no focal air space opacity, pleural effusion, or pneumothorax seen. The cardiac silhouette size is within normal limits. The osseous structures are intact. Mild multilevel degener ative change of the spine. Cholecystectomy clips are seen. IMPRESSION: No acute cardiopulmonary process.
[2019-09-12 12:27] LABS: ALT 18 U/L (4-49); AST 24 U/L (17-59); African American GFR (CKD) >90 (>60 ml/min/1.73 sqM); Alkaline Phosphatase 92 U/L (38-126); Anion Gap 8 mmol/L; Blood Urea Nitrogen 26 mg/dL (9-20); Calcium 9.1 mg/dL (8.4-10.2); Carbon Dioxide 24 mmol/L (22-30); Chloride 109 mmol/L (98-107); Glucose 113 mg/dL (74-99); INR 1.1 (<1.2); Magnesium 1.8 mg/dL (1.6-2.3); Non-African American GFR(CKD) >90 (>60 ml/min/1.73 sqM); Partial Thromboplastin Time 23.7 sec (22.0-30.0); Potassium 4.5 mmol/L (3.5-5.1); Sodium 141 mmol/L (137-145); Total Bilirubin 0.4 mg/dL (0.2-1.3); Total Protein 7.2 g/dL (6.3-8.2)
--- NOTE | 2019-09-12 13:10 | ED ---
Chest Pain HPI - General Chief Complaint: Chest Pain Stated Complaint: Chest pain, cough Time Seen by Provider: 09/12/19 11:43 Source: patient, RN notes reviewed Mode of arrival: ambulatory Limitations: no limitations - History of Present Illness Initial Comments: 44-year-old male presents emergency Department with chief complaint of chest pain. Patient states that it started yesterday associated with a runny nose cough. Patient states that he has pain with a deep inspiration when he coughs primarily the left side. Patient states he called his PCP who ordered COVID testing. Patient was advised to emergency from the pain worsened. Patient presents today has left-sided worsening chest pain. He does have a history of A. fib and sees Dr. Patel on flecainide. no anticoagulants. Patient denies any history of asthma or COPD. Patient is not for sure breath at rest no recent leg pain or leg swelling. Patient has borderline diabetes, hyperlipidemia. - Related Data Home Medications Medication Instructions Recorded Confirmed Multivitamins, Thera [Multivitamin 1 tab PO DAILY 01/19/16 05/17/17 (formulary)] Allergies Allergy/AdvReac Type Severity Reaction Status Date / Time cephalexin [From Keflex] AdvReac Rash/Hives Verified 11/18/17 21:45 Review of Systems ROS Statement: Those systems with pertinent positive or pertinent negative responses have been documented in the HPI. ROS Other: All systems not noted in ROS Statement are negative. 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 PANNICULECTOMY January 2016; Past Anesthesia/Blood Transfusion Reactions: No Reported Reaction Additional Past Anesthesia/Blood Transfusion Reaction / Comment(s): STATES TAKES LONG TIME TO WAKE UP Past Psychological History: No Psychological Hx Reported Smoking Status: Never smoker Past Alcohol Use History: None Reported Past Drug Use History: None Reported - Past Family History Father History Unknown: Yes Family Medical History: Congestive Heart Failure (CHF), Myocardial Infarction ([place]) Additional Family Medical History / Comment(s): SEVERAL [place]'S Mother Family Medical History: No Reported History Additional Family Medical History / Comment(s): HEALTHY Brother(s) History Unknown: Yes Family Medical History: Deep Vein Thrombosis (DVT), Pulmonary Embolus General Exam Limitations: no limitations General appearance: alert, in no apparent distress Head exam: Present: atraumatic, normocephalic, normal inspection Eye exam: Present: normal appearance, PERRL, EOMI. Absent: scleral icterus, conjunctival injection, periorbital swelling Neck exam: Present: normal inspection. Absent: tenderness, meningismus, lymphadenopathy Respiratory exam: Present: normal lung sounds bilaterally. Absent: respiratory distress, wheezes, rales, rhonchi, stridor, chest wall tenderness Cardiovascular Exam: Present: regular rate, normal rhythm, normal heart sounds. Absent: systolic murmur, diastolic murmur, rubs, gallop, clicks GI/Abdominal exam: Present: soft, normal bowel sounds. Absent: distended, tenderness, guarding, rebound, rigid Back exam: Absent: CVA tenderness (R), CVA tenderness (L) Neurological exam: Present: alert, oriented X3 Skin exam: Present: warm, dry, intact, normal color. Absent: rash Course Vital Signs 09/12/19 09/12/19 11:36 13:15 Temperature 98.4 F Pulse Rate 75 62 Respiratory 18 16 Rate Blood Pressure 119/71 110/62 O2 Sat by Pulse 99 97 Oximetry Chest Pain [facility] 44-year-old male presented for pleuritic chest pain. Patient symptoms started yesterday. EKG, troponin negative this time no acute changes an EKG. Patient has elevated d-dimer which CT was obtained negative for acute PE. Patient symptoms consistent with pleurisy. He'll continue anti-inflammatories. Return parameters were discussed. Disposition Clinical Impression: Pleurisy Disposition: HOME SELF-CARE Condition: Stable Instructions (If sedation given, give patient instructions): Pleurisy (ED) Additional Instructions: Please return to the Emergency Department if symptoms worsen or any other concerns. Is patient prescribed a controlled substance at d/c from ED?: No Referrals: Rodríguez Miranda III, MD [Primary Care Provider] - 1-2 days Time of Disposition: 14:28
[2019-09-12 13:16] VITALS: RESP 16
[2019-09-12 13:19] LABS: D-Dimer 1.01 mg/L FEU (<0.60)
--- NOTE | 2019-09-12 14:09 | CT ---
EXAMINATION TYPE: CT chest angio for PE DATE OF EXAM: 09/12/2019 COMPARISON: Radiograph same day HISTORY: 44-year-old male SOB TECHNIQUE: Contiguous axial scanning of the chest performed with IV Contrast, patient injected with 1 00 mL of Isovue 370. Coronal/sagittal MIP reconstructions performed. CT DLP: 963.4 mGycm Automated exposure control for dose reduction was used. FINDINGS: Heart normal size without pericardial effusion. No flattening of the interventricular septum or reflu x of contrast into hepatic veins. Ectatic aortic root at 3.8 cm and descending aorta 3.6 cm. Conventional arch vessel branching anatomy . Satisfactory opacification of the pulmonary arterial system without evidence for pulmonary embolus. No thoracic lymphadenopathy by CT size criteria. Mild diffuse bronchial wall thickening without consolidation or pleural effusion. 4 mm subpleural pulmonary nodule anterior right middle lobe, axial image 70 can be reassessed in 12 m onths. Status post sleeve gastrectomy with a small hiatal hernia present. Cholecystectomy clips. Anterior sp lenule. Status post cholecystectomy. Bones: Mild degenerative disc disease within the thoracic spine. IMPRESSION: 1. NO EVIDENCE FOR PULMONARY EMBOLUS. 2. MILD DIFFUSE BRONCHIAL WALL THICKENING MAY REFLECT BRONCHITIS OR ASTHMA. 3. A 4 MM RIGHT-SIDED PULMONARY NODULE CAN BE REASSESSED IN 12 MONTHS. 4. STATUS POST SLEEVE GASTRECTOMY WITH A SMALL HIATAL HERNIA PRESENT.
[2019-09-12 14:40] VITALS: BP 116/89; PULSE 86
== END 2019-09-12 14:38 | disposition home or self-care (01) ==
LOC: EC 11:24
DX: R09.1 Pleurisy (principal); R07.9 Chest pain, unspecified; R05 Cough; R79.1 Abnormal coagulation profile; I48.91 Unspecified atrial fibrillation; G47.30 Sleep apnea, unspecified; Z88.1 Allergy status to other antibiotic agents; Z98.84 Bariatric surgery status
CPT/HCPCS: 99285; 36415; 93005; 85379; 80053; 83690; 83735; 84484; 85025; 85610; 85730; 71046; 71275; Q9967

== ENCOUNTER 2019-09-22 20:42 | Emergency (ER) | payer BC ==
[2019-09-22 21:02] VITALS: RESP 18; TEMP 98.2
--- NOTE | 2019-09-22 21:10 | ED ---
Lower Extremity Injury HPI - General Chief Complaint: Extremity Injury, Lower Stated Complaint: Rt Leg Pain/Swelling Time Seen by Provider: 09/22/19 21:07 Source: patient, RN notes reviewed, old records reviewed Mode of arrival: ambulatory Limitations: no limitations - History of Present Illness Initial Comments: This is a 44-year-old male DF for evaluation, patient does have a known blood clotting disorder but does not take anticoagulation. No history of blood clots, patient is no chest pain coming with right lower Shorty pain in his been progressing some increased swelling bleeding no swelling in both lower extremities. No other complaints no travel history or sick contacts no recent surgeries MD Complaint: other (Generalized right foot pain) -: days(s) Injury: Leg: Right, Ankle: Right Place: home Severity: moderate Severity scale (1-10): 7 Worsens With: nothing Context: other (No injury) Associated Symptoms: swelling, ambulatory (Patient is able to amply without difficulty) Treatments Prior to Arrival: other (No treatment) - Related Data Home Medications Medication Instructions Recorded Confirmed Multivitamins, Thera [Multivitamin 1 tab PO DAILY 01/19/16 05/17/17 (formulary)] Previous Rx's Medication Instructions Recorded Apixaban [Eliquis Starter Pack 0 mg PO DIRECTED 30 Days #1 pack 09/22/19 (for VTE)] Apixaban [Eliquis] 5 mg PO BID #60 tab 09/22/19 Allergies Allergy/AdvReac Type Severity Reaction Status Date / Time cephalexin [From Keflex] AdvReac Rash/Hives Verified 09/22/19 21:02 Review of Systems ROS Statement: Those systems with pertinent positive or pertinent negative responses have been documented in the HPI. ROS Other: All systems not noted in ROS Statement are negative. 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 PANNICULECTOMY January 2016; Past Anesthesia/Blood Transfusion Reactions: No Reported Reaction Additional Past Anesthesia/Blood Transfusion Reaction / Comment(s): STATES TAKES LONG TIME TO WAKE UP Past Psychological History: Depression Smoking Status: Never smoker Past Alcohol Use History: None Reported Past Drug Use History: None Reported - Past Family History Father History Unknown: Yes Family Medical History: Congestive Heart Failure (CHF), Myocardial Infarction ([place]) Additional Family Medical History / Comment(s): SEVERAL [place]'S Mother Family Medical History: No Reported History Additional Family Medical History / Comment(s): HEALTHY Brother(s) History Unknown: Yes Family Medical History: Deep Vein Thrombosis (DVT), Pulmonary Embolus General Exam Limitations: no limitations General appearance: alert, in no apparent distress Head exam: Present: atraumatic, normocephalic, normal inspection Eye exam: Present: normal appearance, PERRL, EOMI. Absent: scleral icterus, conjunctival injection, periorbital swelling ENT exam: Present: normal exam, mucous membranes moist Neck exam: Present: normal inspection. Absent: tenderness, meningismus, lymphadenopathy Respiratory exam: Present: normal lung sounds bilaterally. Absent: respiratory distress, wheezes, rales, rhonchi, stridor Cardiovascular Exam: Present: regular rate, normal rhythm, normal heart sounds. Absent: systolic murmur, diastolic murmur, rubs, gallop, clicks GI/Abdominal exam: Present: soft, normal bowel sounds. Absent: distended, tenderness, guarding, rebound, rigid Extremities exam: Present: normal inspection, full ROM, normal capillary refill, other (RLE pain and edema). Absent: tenderness, pedal edema, joint swelling, calf tenderness Back exam: Present: normal inspection Neurological exam: Present: alert, oriented X3, CN II-XII intact Psychiatric exam: Present: normal affect, normal mood Skin exam: Present: warm, dry, intact, normal color. Absent: rash Course Vital Signs 09/22/19 09/22/19 20:59 22:49 Temperature 98.2 F Pulse Rate 58 L 60 Respiratory 18 18 Rate Blood Pressure 126/87 130/75 O2 Sat by Pulse 98 98 Oximetry - Reevaluation(s) Reevaluation #1: Medical record is reviewed Patient's no acute distress no chest pain Will follow-up with primary care, started on [place] Medical Decision Making - Medical Decision Making 44 male to the ER with history of clotting disorder coming in with right lower extremity pain positive DVT will discharge on Eliquis. - Radiology Data Radiology results: report reviewed (Ultrasound positive for DVT), image reviewed Disposition Clinical Impression: Right leg DVT Disposition: HOME SELF-CARE Condition: Good Instructions (If sedation given, give patient instructions): Deep Vein Thrombosis (ED) Prescriptions: Apixaban [Eliquis] 5 mg PO BID #60 tab Apixaban [Eliquis Starter Pack (for VTE)] 0 mg PO DIRECTED 30 Days #1 pack Is patient prescribed a controlled substance at d/c from ED?: No Referrals: Rodríguez Miranda III, MD [Primary Care Provider] - 1-2 days Vinny Jacobsen MD [STAFF PHYSICIAN] - 1-2 days
--- NOTE | 2019-09-22 21:56 | US ---
EXAMINATION TYPE: US venous doppler duplex LE RT DATE OF EXAM: 09/22/2019 9:46 PM COMPARISON: NONE CLINICAL HISTORY: Factor V, right knee pain . SIDE PERFORMED: Right TECHNIQUE: The lower extremity deep venous system is examined utilizing real time linear array sonog elver with graded compression, doppler sonography and color-flow sonography. VESSELS IMAGED: External Iliac Vein (EIV) Common Femoral Vein Deep Femoral Vein Greater Saphenous Vein * Femoral Vein Popliteal Vein Small Saphenous Vein * Proximal Calf Veins (* superficial vessels) Right Leg: Positive for DVT right distal popliteal vein to proximal calf vein IMPRESSION: 1. Right lower extremity deep venous thrombosis present within the popliteal vein extending into the proximal calf. Report was called to the emergency room physician by Dr. Burgess [facility] of [facility].
[2019-09-22] MEDS ORDERED: APIXABAN 5 MG TAB PO STA (22:34)
[2019-09-22 22:50] VITALS: BP 130/75; PULSE 60
== END 2019-09-22 22:50 | disposition home or self-care (01) ==
LOC: EC 20:42
DX: I82.431 Acute embolism and thrombosis of right popliteal vein (principal); I82.4Z1 Acute embolism and thrombosis of unspecified deep veins of right distal lower extremity; Z88.1 Allergy status to other antibiotic agents; G47.30 Sleep apnea, unspecified; Z99.89 Dependence on other enabling machines and devices; Z98.890 Other specified postprocedural states
CPT/HCPCS: 99284

== ENCOUNTER → 2019-10-18 | Outpatient (CLI) | payer BC ==
[2019-10-18 09:06] LABS: MCH 30.1 pg (25.0-35.0); MCHC 33.3 g/dL (31.0-37.0); MCV 90.5 fL (80.0-100.0); Mean Platelet Volume 7.4; Platelet Count 205 k/uL (150-450); RBC 4.65 m/uL (4.30-5.90); RDW 12.8 % (11.5-15.5); WBC 6.8 k/uL (3.8-10.6)
[2019-10-18 15:20] LABS: % Iron Saturation 33.23 (15.00-50.00)
[2019-10-18 15:21] LABS: Albumin/Globulin Ratio 1.54 (1.60-3.17); Anion Gap 5.3 mmol/L (4.00-12.00); BUN/Creat Ratio 28.75 Ratio (12.00-20.00); Calcium 9.1 mg/dL (8.7-10.3); Carbon Dioxide 26.7 mmol/L (21.6-31.8); Chol/HDL Ratio 5.78; Globulin 2.6 g/dL (1.6-3.3); Magnesium 1.8 mg/dL (1.5-2.4); Non-African American GFR(CKD) 107.9 (60.0-200.0); Phosphorus 2.7 mg/dL (2.4-5.1); Total Bilirubin 0.6 mg/dL (0.3-1.2); Total Protein 6.6 g/dL (6.2-8.2)
[2019-10-18 15:28] LABS: Ferritin 148.5 ng/mL (22.0-322.0)
[2019-10-18 16:48] LABS: Hemoglobin A1C 5.5 % (4.0-6.0)
[2019-10-18 17:12] LABS: Folate, Serum 15.5 ng/mL
[2019-10-18 19:02] LABS: INR 1.09 (0.90-1.11); Prothrombin Time 11.6 sec (9.9-11.9)
[2019-10-21 15:20] LABS: Zinc, Serum 77 ug/dL (60-130)
[2019-10-22 10:02] LABS: Vitamin A 50 ug/dL (38-106)
[2019-10-23 12:40] LABS: Vit B1(Thiamine) 62 ug/L (38-122)
[2019-10-23 18:10] LABS: Selenium 94 mcg/L (63-160)
== END | disposition home or self-care (01) ==
LOC: LABWHC1 08:10
PROVIDERS: ATTEND Surgery Plastic and Reconstructive Surgery
DX: E21.1 Secondary hyperparathyroidism, not elsewhere classified (principal); E89.1 Postprocedural hypoinsulinemia; D60.9 Acquired pure red cell aplasia, unspecified; K90.9 Intestinal malabsorption, unspecified; E55.9 Vitamin D deficiency, unspecified; K74.1 Hepatic sclerosis; N19 Unspecified kidney failure; K50.90 Crohn's disease, unspecified, without complications; E66.01 Morbid (severe) obesity due to excess calories
CPT/HCPCS: 36415; 80053; 80061; 82306; 82525; 82607; 82728; 82746; 83036; 83540; 83550; 83735; 83970; 84100; 84134; 84255; 84425; 84443; 84590; 84630; 85027; 85610; 85730

== ENCOUNTER → 2019-11-02 | Outpatient (CLI) | payer BC ==
--- NOTE | 2019-11-03 16:18 | CT ---
EXAMINATION TYPE: CT abdomen pelvis w con DATE OF EXAM: 11/02/2019 COMPARISON: 11/18/2017 HISTORY: 44-year-old male diverticulitis, periumbilical pain TECHNIQUE: Contiguous axial scanning of the abdomen and pelvis following administration of 100 ml Iso fracisco 300 IV contrast. Delayed images through the kidneys and coronal/sagittal reconstructions perform ed. CT DLP: 3590.8 mGycm Automated exposure control for dose reduction was used. FINDINGS: Heart normal size without pericardial effusion. Tiny hiatal hernia. Postsurgical changes of sleeve gastrectomy. No focal liver lesion or biliary ductal dilatation. Portal venous system is patent. Cholecystectomy clips. Adrenal glands and pancreas appear within normal limits. Spleen mildly enlarged at 15.4 cm. There is delayed excretion of contrast from the kidneys with symmetric enhancement. Correlation shoul d be made with kidney function to exclude acute kidney injury. No dilated small bowel, free fluid, or free air. No mesenteric or retroperitoneal lymphadenopathy. Oral contrast progressed to the rectum. Somewhat ahaustral appearance with mild wall thickening along the mid to distal sigmoid. There also seems to be some wall thickening of the mid to distal rectum o n axial image 83. No pericolonic inflammatory change seen. Bladder is partially distended. Prostate gland measures 4.3 cm wide. No abnormal fluid collection in the pelvis Bones: Mild to moderate degenerative change at the hips. Facet arthropathy lower lumbar spine. No oss eous destructive process. IMPRESSION: 1. STABLE POSTSURGICAL CHANGE ALONG THE ANTERIOR ABDOMINAL WALL, SUSPECT PRIOR ABDOMINOPLASTY. CLINIC ALLY CORRELATE. 2. SOMEWHAT AHAUSTRAL APPEARANCE TO THE MID TO DISTAL SIGMOID AND WALL THICKENING OF THE MID TO DISTA L RECTUM. CORRELATE FOR NONSPECIFIC COLITIS OR CHRONIC CATHARTIC USE. DIRECT VISUALIZATION OF THE REC GALA TO EXCLUDE NEOPLASM CLINICALLY INDICATED. 3. MILD SPLENOMEGALY AT 15.4 CM.
== END | disposition home or self-care (01) ==
LOC: RADCTMAIN 07:59
PROVIDERS: ATTEND Surgery Plastic and Reconstructive Surgery
DX: R16.1 Splenomegaly, not elsewhere classified (principal); K63.89 Other specified diseases of intestine
CPT/HCPCS: 74177; Q9967

== ENCOUNTER 2019-12-19 07:30 | Day surgery (SDC) | payer BC ==
[2019-12-17 13:44] VITALS: BMI 45.0
[~2019-12-19 07:30] MED LIST: LACTATED RINGERS 1,000 ML IV SCH
--- NOTE | 2019-12-19 07:52 | P.GSHP ---
History of Present Illness H&P Date: 12/19/19 CHIEF COMPLAINT: GERD and colon screen HISTORY OF PRESENT ILLNESS: The patient is a 44-year-old male who presents with gastroesophageal reflux disease and need for colon screen. Upper and lower endoscopy were offered for further evaluation and management. PAST MEDICAL HISTORY: Please see list. PAST SURGICAL HISTORY: Please see list. MEDICATIONS: Please see list. ALLERGIES: Please see list. SOCIAL HISTORY: No illicit drug use FAMILY HISTORY: No reports of Crohn disease or ulcerative colitis. REVIEW OF ORGAN SYSTEMS: CONSTITUTIONAL: No reports of fevers or chills. GI: Denies any blood in stools or constipation. PHYSICAL EXAM: VITAL SIGNS: Stable GENERAL: Well-developed pleasant in no acute distress. HEENT: No scleral icterus. Extraocular movements grossly intact. Moist buccal mucosa. NECK: Supple without lymphadenopathy. CHEST: Unlabored respirations. Equal bilateral excursions. CARDIOVASCULAR: Regular rate and rhythm. Distal 2+ pulses. ABDOMEN: Soft, nondistended. MUSCULOSKELETAL: No clubbing, cyanosis, or edema. ASSESSMENT: 1. Gastroesophageal reflux disease 2. Colon screen. PLAN: 1. 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 PANNICULECTOMY January 2016; Past Anesthesia/Blood Transfusion Reactions: Previous Problems w/ Anesthesia Additional Past Anesthesia/Blood Transfusion Reaction / Comment(s): STATES TAKES LONG TIME TO WAKE UP Smoking Status: Never smoker - Past Family History Father History Unknown: Yes Family Medical History: Congestive Heart Failure (CHF), Myocardial Infarction ([place]) Additional Family Medical History / Comment(s): SEVERAL [place]'S Mother Family Medical History: No Reported History Additional Family Medical History / Comment(s): HEALTHY Brother(s) History Unknown: Yes Family Medical History: Deep Vein Thrombosis (DVT), Pulmonary Embolus Medications and Allergies Home Medications Medication Instructions Recorded Confirmed Type Apixaban [Eliquis] 5 mg PO BID #60 tab 09/22/19 12/17/19 Rx Diclofenac Sodium [Voltaren] 75 mg PO BID 10/30/19 12/17/19 History Flecainide [Tambocor] 50 mg PO Q12HR 10/30/19 12/17/19 History Metoprolol Succinate [Toprol XL] 50 mg PO DAILY 10/30/19 12/17/19 History Vortioxetine Hydrobromide 10 mg PO DAILY 10/30/19 12/17/19 History [Trintellix] lisinopriL [Zestril] 10 mg PO DAILY 10/30/19 12/17/19 History traZODone HCL [Desyrel] 100 mg PO HS 10/30/19 12/17/19 History Multivitamins, Thera [Multivitamin 1 tab PO DAILY 12/17/19 12/17/19 History (formulary)] Allergies Allergy/AdvReac Type Severity Reaction Status Date / Time cephalexin [From Keflex] AdvReac Rash/Hives Verified 12/17/19 13:37
[2019-12-19 07:59] VITALS: TEMP 98
[2019-12-19] MEDS ORDERED: LIDOCAINE 1% INJ 10MG/ML (20 ML MDV) ONE (08:13)
[2019-12-19] MEDS ORDERED: PROPOFOL 10 MG/ML 20 ML VIAL IV ONE (08:13)
[2019-12-19 08:40] VITALS: RESP 16
--- NOTE | 2019-12-19 08:44 | P.PCN ---
Date of Procedure: 12/19/19 Description of Procedure: PREOPERATIVE DIAGNOSIS: Abdominal computed tomography scan for colitis POSTOPERATIVE DIAGNOSIS: Abdominal computed tomography scan for colitis OPERATION: Colonoscopy to the cecum, ileocecal valve and appendiceal orifice. SURGEON: Cris Deleon MD. ANESTHESIA: MAC. INDICATIONS: The patient is a 44-year-old male who presents with abnormal computed tomography scan for colitis. Benefits and risks were described and informed consent was obtained. DESCRIPTION OF PROCEDURE: The patient had undergone Suprep. He had been brought into the operating room and laid in the left lateral decubitus position. After adequate intravenous sedation, the rectum was examined with 2% lidocaine jelly. No external hemorrhoids were encountered. The rectal tone was within normal limits. No lesions were palpated in the rectal vault. An Olympus colonoscope was advanced until the cecum, ileocecal valve and appendiceal orifice were clearly viewed. The prep was excellent. No scattered diverticulosis was encountered. No colonic polyps were found. No evidence of focal colitis was found. Retroflexion of the scope demonstrated grade 1 internal hemorrhoids without active bleeding or inflammation. The colon was desufflated. The patient had tolerated the procedure well. Withdrawal time was over 6 minutes. FINDINGS: Aronchick preparation quality scale 1 (1-5) Internal hemorrhoids, grade 1 No external prolapsed hemorrhoids. No arteriovenous malformations. No adenomatous polyps. No focal colitis. RECOMMENDATIONS: Lower endoscopy in 5 years, 2024, age 49 Plan - Discharge Summary Discharge Rx Participant: No New Discharge Prescriptions: Continue Apixaban [Eliquis] 5 mg PO BID #60 tab traZODone HCL [Desyrel] 100 mg PO HS Vortioxetine Hydrobromide [Trintellix] 10 mg PO DAILY Diclofenac Sodium [Voltaren] 75 mg PO BID Flecainide [Tambocor] 50 mg PO Q12HR Metoprolol Succinate [Toprol XL] 50 mg PO DAILY lisinopriL [Zestril] 10 mg PO DAILY Multivitamins, Thera [Multivitamin (formulary)] 1 tab PO DAILY Discharge Medication List Apixaban [Eliquis] 5 mg PO BID #60 tab 09/22/19 [Rx] Diclofenac Sodium [Voltaren] 75 mg PO BID 10/30/19 [History] Flecainide [Tambocor] 50 mg PO Q12HR 10/30/19 [History] Metoprolol Succinate [Toprol XL] 50 mg PO DAILY 10/30/19 [History] Vortioxetine Hydrobromide [Trintellix] 10 mg PO DAILY 10/30/19 [History] lisinopriL [Zestril] 10 mg PO DAILY 10/30/19 [History] traZODone HCL [Desyrel] 100 mg PO HS 10/30/19 [History] Multivitamins, Thera [Multivitamin (formulary)] 1 tab PO DAILY 12/17/19 [History] Follow up Appointment(s)/Referral(s): Cris Deleon MD [STAFF PHYSICIAN] - As Needed Patient Instructions/Handouts: *[facility] - (Anesthesia) Endoscopy Discharge Instructions, Colonoscopy (DC) Activity/Diet/Wound Care/Special Instructions: Repeat colonoscopy age 49, in 5 years, 2024 Discharge Disposition: HOME SELF-CARE
[2019-12-19 08:53] VITALS: BP 130/90; PULSE 50
== END 2019-12-19 09:06 | disposition home or self-care (01) ==
LOC: ORWHC2ENDO 07:30
PROVIDERS: ATTEND Surgery Plastic and Reconstructive Surgery
DX: K64.0 First degree hemorrhoids (principal); I48.91 Unspecified atrial fibrillation; G47.33 Obstructive sleep apnea (adult) (pediatric); K21.9 Gastro-esophageal reflux disease without esophagitis; Z79.01 Long term (current) use of anticoagulants; Z79.899 Other long term (current) drug therapy; Z88.1 Allergy status to other antibiotic agents; Z99.89 Dependence on other enabling machines and devices; Z98.84 Bariatric surgery status; Z90.49 Acquired absence of other specified parts of digestive tract; Z82.49 Family history of ischemic heart disease and other diseases of the circulatory system
CPT/HCPCS: 45378; J2001; J2704

== ENCOUNTER → 2019-12-20 | Outpatient (CLI) | payer BC ==
--- NOTE | 2019-12-20 12:33 | US ---
EXAMINATION TYPE: US venous doppler duplex LE DATE OF EXAM: 12/20/2019 9:57 AM COMPARISON: NONE CLINICAL HISTORY: 44-year-old male I82.491 Acute embolism and thrombosis. On thinners for previous cl ot in right leg, no symptoms now SIDE PERFORMED: Bilateral TECHNIQUE: The lower extremity deep venous system is examined utilizing real time linear array sonog elver with graded compression, doppler sonography and color-flow sonography. FINDINGS: VESSELS IMAGED: External Iliac Vein (EIV) Common Femoral Vein Deep Femoral Vein Greater Saphenous Vein * Femoral Vein Popliteal Vein Small Saphenous Vein * Proximal Calf Veins (* superficial vessels) Right Leg: Negative for DVT Left Leg: Negative for DVT IMPRESSION: No evidence for DVT within the bilateral lower extremities imaged from the groin to the upper calves. Interval clearing of the previous clot in the upper right calf seen on 09/22/2019.
== END | disposition home or self-care (01) ==
LOC: RADUSWWP 09:25
PROVIDERS: ATTEND Internal Medicine Hematology & Oncology
DX: I82.491 Acute embolism and thrombosis of other specified deep vein of right lower extremity (principal)
CPT/HCPCS: 93970

== ENCOUNTER 2021-01-19 23:15 | Emergency (ER) | payer BC ==
[2021-01-19 23:29] VITALS: RESP 18; TEMP 98.7
[2021-01-19] MEDS ORDERED: SODIUM CHLORIDE 0.9% 1,000 ML IV STA (23:56)
--- NOTE | 2021-01-20 00:26 | ED ---
General Adult HPI - General Chief complaint: Syncope Stated complaint: near syncope Time Seen by Provider: 01/19/21 23:39 Source: patient, RN notes reviewed Mode of arrival: wheelchair Limitations: no limitations - History of Present Illness Initial comments: 45-year-old male presents emergency Department chief complaint of lightheadedness. Patient states started last night states he felt lightheaded And felt very unsteady on his feet, nearly pass out had a warm flushed feeling. He states she's had some on-and-off symptoms of the day no chest pain or shortness breath no palpitations does have a history of A. fib anticoagulated. Denies any leg pain leg swelling no abdominal pain states she is asymptomatic at rest. - Related Data Home Medications Medication Instructions Recorded Confirmed Diclofenac Sodium [Voltaren] 75 mg PO BID 10/30/19 12/19/19 Flecainide [Tambocor] 50 mg PO Q12HR 10/30/19 12/19/19 Metoprolol Succinate [Toprol XL] 50 mg PO DAILY 10/30/19 12/19/19 Vortioxetine Hydrobromide 10 mg PO DAILY 10/30/19 12/19/19 [Trintellix] lisinopriL [Zestril] 10 mg PO DAILY 10/30/19 12/19/19 traZODone HCL [Desyrel] 100 mg PO HS 10/30/19 12/19/19 Multivitamins, Thera [Multivitamin 1 tab PO DAILY 12/17/19 12/19/19 (formulary)] Previous Rx's Medication Instructions Recorded Apixaban [Eliquis] 5 mg PO BID #60 tab 09/22/19 Allergies Allergy/AdvReac Type Severity Reaction Status Date / Time cephalexin [From Keflex] AdvReac Rash/Hives Verified 01/19/21 23:29 Review of Systems ROS Statement: Those systems with pertinent positive or pertinent negative responses have been documented in the HPI. ROS Other: All systems not noted in ROS Statement are negative. 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 PANNICULECTOMY January 2016; Past Anesthesia/Blood Transfusion Reactions: Previous Problems w/ Anesthesia Additional Past Anesthesia/Blood Transfusion Reaction / Comment(s): STATES TAKES LONG TIME TO WAKE UP Past Psychological History: Depression Smoking Status: Never smoker Past Alcohol Use History: None Reported Past Drug Use History: None Reported - Past Family History Father History Unknown: Yes Family Medical History: Congestive Heart Failure (CHF), Myocardial Infarction ([place]) Additional Family Medical History / Comment(s): SEVERAL OK'S Mother Family Medical History: No Reported History Additional Family Medical History / Comment(s): HEALTHY Brother(s) History Unknown: Yes Family Medical History: Deep Vein Thrombosis (DVT), Pulmonary Embolus General Exam Limitations: no limitations General appearance: alert, in no apparent distress Head exam: Present: atraumatic, normocephalic, normal inspection Eye exam: Present: normal appearance, PERRL, EOMI. Absent: scleral icterus, co njunctival injection, periorbital swelling ENT exam: Present: normal exam, normal oropharynx, mucous membranes moist Neck exam: Present: normal inspection, full ROM. Absent: tenderness, meningismus, lymphadenopathy Respiratory exam: Present: normal lung sounds bilaterally. Absent: respiratory distress, wheezes, rales, rhonchi, stridor Cardiovascular Exam: Present: regular rate, normal rhythm, normal heart sounds. Absent: systolic murmur, diastolic murmur, rubs, gallop, clicks GI/Abdominal exam: Present: soft, normal bowel sounds. Absent: distended, tenderness, guarding, rebound, rigid Neurological exam: Present: alert, oriented X3, CN II-XII intact, reflexes normal. Absent: motor sensory deficit Course Vital Signs 01/19/21 01/20/21 23:23 00:27 Temperature 98.7 F Pulse Rate 76 Pulse Rate [ 73 Sitting [employer]] Pulse Rate [ 80 Standing [employer] ] Pulse Rate [ 68 Supine [employer]] Respiratory 18 18 Rate Blood Pressure 104/75 Blood Pressure 101/67 [Sitting] Blood Pressure 104/80 [Standing] Blood Pressure 104/64 [Supine] O2 Sat by Pulse 97 97 Oximetry Medical Decision Making - Medical Decision Making 45-year-old presented for lightheadedness. Patient's labs unremarkable EKG unremarkable patient was hydrated is able to stand up and ambulate with no difficulty no near syncope. Patient discharged stable condition. - Lab Data Result diagrams: 01/20/21 00:00 01/20/21 00:00 Lab Results 01/20/21 01/20/21 01/20/21 Range/Units 00:00 00:00 00:00 WBC 9.8 (3.8-10.6) k/uL RBC 4.84 (4.30-5.90) m/uL Hgb 14.6 (13.0-17.5) gm/dL Hct 42.5 (39.0-53.0) % MCV 87.9 (80.0-100.0) fL MCH 30.2 (25.0-35.0) pg MCHC 34.4 (31.0-37.0) g/dL RDW 13.0 (11.5-15.5) % Plt Count 237 (150-450) k/uL MPV 7.8 Neutrophils % 55 % Lymphocytes % 36 % Monocytes % 5 % Eosinophils % 2 % Basophils % 0 % Neutrophils # 5.4 (1.3-7.7) k/uL Lymphocytes # 3.5 (1.0-4.8) k/uL Monocytes # 0.5 (0-1.0) k/uL Eosinophils # 0.2 (0-0.7) k/uL Basophils # 0.0 (0-0.2) k/uL PT 11.7 (9.0-12.0) sec INR 1.1 (<1.2) APTT 25.9 (22.0-30.0) sec Sodium (137-145) mmol/L Potassium (3.5-5.1) mmol/L Chloride (98-107) mmol/L Carbon Dioxide (22-30) mmol/L Anion Gap mmol/L BUN (9-20) mg/dL Creatinine (0.66-1.25) mg/dL Est GFR (CKD-EPI)AfAm (>60 ml/min/1.73 sqM) Est GFR (CKD-EPI)NonAf (>60 ml/min/1.73 sqM) Glucose (74-99) mg/dL Calcium (8.4-10.2) mg/dL Magnesium (1.6-2.3) mg/dL Total Bilirubin (0.2-1.3) mg/dL AST (17-59) U/L ALT (4-49) U/L Alkaline Phosphatase (38-126) U/L Troponin I (0.000-0.034) ng/mL Total Protein (6.3-8.2) g/dL Albumin (3.5-5.0) g/dL Urine Color Yellow Urine Appearance Clear (Clear) Urine pH 5.5 (5.0-8.0) Ur Specific [place] 1.029 (1.001-1.035) Urine Protein Trace H (Negative) Urine Glucose (UA) Negative (Negative) Urine Ketones Trace H (Negative) Urine Blood Negative (Negative) Urine Nitrite Negative (Negative) Urine Bilirubin Negative (Negative) Urine Urobilinogen <2.0 (<2.0) mg/dL Ur Leukocyte Esterase Negative (Negative) 01/20/21 01/20/21 Range/Units 00:00 00:00 WBC (3.8-10.6) k/uL RBC (4.30-5.90) m/uL Hgb (13.0-17.5) gm/dL Hct (39.0-53.0) % MCV (80.0-100.0) fL MCH (25.0-35.0) pg MCHC (31.0-37.0) g/dL RDW (11.5-15.5) % Plt Count (150-450) k/uL MPV Neutrophils % % Lymphocytes % % Monocytes % % Eosinophils % % Basophils % % Neutrophils # (1.3-7.7) k/uL Lymphocytes # (1.0-4.8) k/uL Monocytes # (0-1.0) k/uL Eosinophils # (0-0.7) k/uL Basophils # (0-0.2) k/uL PT (9.0-12.0) sec INR (<1.2) APTT (22.0-30.0) sec Sodium 138 (137-145) mmol/L Potassium 4.1 (3.5-5.1) mmol/L Chloride 104 (98-107) mmol/L Carbon Dioxide 23 (22-30) mmol/L Anion Gap 11 mmol/L BUN 32 H (9-20) mg/dL Creatinine 1.05 (0.66-1.25) mg/dL Est GFR (CKD-EPI)AfAm >90 (>60 ml/min/1.73 sqM) Est GFR (CKD-EPI)NonAf 85 (>60 ml/min/1.73 sqM) Glucose 117 H (74-99) mg/dL Calcium 9.3 (8.4-10.2) mg/dL Magnesium 1.9 (1.6-2.3) mg/dL Total Bilirubin 0.5 (0.2-1.3) mg/dL AST 44 (17-59) U/L ALT 43 (4-49) U/L Alkaline Phosphatase 107 (38-126) U/L Troponin I <0.012 (0.000-0.034) ng/mL Total Protein 7.1 (6.3-8.2) g/dL Albumin 4.1 (3.5-5.0) g/dL Urine Color Urine Appearance (Clear) Urine pH (5.0-8.0) Ur Specific [place] (1.001-1.035) Urine Protein (Negative) Urine Glucose (UA) (Negative) Urine Ketones (Negative) Urine Blood (Negative) Urine Nitrite (Negative) Urine Bilirubin (Negative) Urine Urobilinogen (<2.0) mg/dL Ur Leukocyte Esterase (Negative) Disposition Clinical Impression: Mild dehydration, Near syncope Disposition: HOME SELF-CARE Condition: Stable Instructions (If sedation given, give patient instructions): Near Syncope (ED) Additional Instructions: Please return to the Emergency Department if symptoms worsen or any other concerns. Is patient prescribed a controlled substance at d/c from ED?: No Referrals: Rodríguez Miranda III, MD [Primary Care Provider] - 1-2 days Time of Disposition: 01:49
[2021-01-20 00:32] LABS: Basophils % (A) 0 %; Eosinophils # (A) 0.2 k/uL (0-0.7); Eosinophils % (A) 2 %; HCT 42.5 % (39.0-53.0); HGB 14.6 gm/dL (13.0-17.5); Lymphocytes # (A) 3.5 k/uL (1.0-4.8); Lymphocytes % (A) 36 %; MCH 30.2 pg (25.0-35.0); MCHC 34.4 g/dL (31.0-37.0); MCV 87.9 fL (80.0-100.0); Mean Platelet Volume 7.8; Monocytes # (A) 0.5 k/uL (0-1.0); Monocytes % (A) 5 %; Neutrophils # (A) 5.4 k/uL (1.3-7.7); Neutrophils % (A) 55 %; Platelet Count 237 k/uL (150-450); RBC 4.84 m/uL (4.30-5.90); WBC 9.8 k/uL (3.8-10.6)
[2021-01-20 00:33] VITALS: BP 104/64; PULSE 73
--- NOTE | 2021-01-20 00:33 | XR ---
EXAMINATION TYPE: XR chest 2V DATE OF EXAM: 01/20/2021 COMPARISON: 09/12/2019 HISTORY: Chest pain. Syncope TECHNIQUE: FINDINGS: Heart and mediastinum are normal. Lungs are clear of infiltrate. There is no heart failure. There are no hilar masses. Costophrenic angles are clear. There are chest leads. Bony thorax is inta ct. IMPRESSION: No active cardiopulmonary disease. Normal heart. No change.
[2021-01-20 00:35] LABS: Appearance,Urine Clear (Clear); Bilirubin,Urine Negative (Negative); Blood,Urine Negative (Negative); Color,Urine Yellow; Glucose,Urine (UA) Negative (Negative); Ketones,Urine Trace (Negative); Leukocyte Esterase,Urine Negative (Negative); Nitrite,Urine Negative (Negative); PH, Urine 5.5 (5.0-8.0); Protein,Urine Trace (Negative); Specific Gravity,Urine 1.029 (1.001-1.035); Urobilinogen,Urine <2.0 mg/dL (<2.0)
[2021-01-20 00:40] LABS: INR 1.1 (<1.2); Partial Thromboplastin Time 25.9 sec (22.0-30.0); Prothrombin Time 11.7 sec (9.0-12.0)
[2021-01-20 00:50] LABS: ALT 43 U/L (4-49); AST 44 U/L (17-59); African American GFR (CKD) >90 (>60 ml/min/1.73 sqM); Albumin 4.1 g/dL (3.5-5.0); Alkaline Phosphatase 107 U/L (38-126); Anion Gap 11 mmol/L; Blood Urea Nitrogen 32 mg/dL (9-20); Calcium 9.3 mg/dL (8.4-10.2); Carbon Dioxide 23 mmol/L (22-30); Chloride 104 mmol/L (98-107); Glucose 117 mg/dL (74-99); Magnesium 1.9 mg/dL (1.6-2.3); Non-African American GFR(CKD) 85 (>60 ml/min/1.73 sqM); Potassium 4.1 mmol/L (3.5-5.1); Sodium 138 mmol/L (137-145); Total Bilirubin 0.5 mg/dL (0.2-1.3); Total Protein 7.1 g/dL (6.3-8.2)
== END 2021-01-20 01:57 | disposition home or self-care (01) ==
LOC: EC 23:15
DX: E86.0 Dehydration (principal); R55 Syncope and collapse; I48.91 Unspecified atrial fibrillation; K21.9 Gastro-esophageal reflux disease without esophagitis; F32.9 Major depressive disorder, single episode, unspecified; Z79.01 Long term (current) use of anticoagulants; Z79.1 Long term (current) use of non-steroidal anti-inflammatories (NSAID); Z79.899 Other long term (current) drug therapy; Z88.1 Allergy status to other antibiotic agents; Z90.49 Acquired absence of other specified parts of digestive tract; Z82.49 Family history of ischemic heart disease and other diseases of the circulatory system
CPT/HCPCS: 36415; 71046; 80053; 81003; 83735; 84484; 85025; 85610; 85730; 93005; 96360; 96361; 99284

== ENCOUNTER → 2021-09-09 | Outpatient (CLI) | payer BC ==
[2021-09-09 22:59] LABS: African American GFR (CKD) 117.5 (60.0-200.0); Anion Gap 9.9 mmol/L (10.00-18.00); Blood Urea Nitrogen 23.5 mg/dL (9.0-27.0); Carbon Dioxide 24.1 mmol/L (20.0-27.5); Non-African American GFR(CKD) 101.4 (60.0-200.0); Potassium 4.3 mmol/L (3.5-5.5)
[2021-09-09 23:25] LABS: HCT 43.6 % (39.6-50.0); HGB 13.5 g/dL (13.0-17.0); MCH 28.5 pg (27.0-32.0); Mean Platelet Volume 10.8 fL (9.5-12.2); NRBC Per 100 WBC 0 /100 WBCS (0.0-0.0); Platelet Count 212 X 10*3/uL (140-440); RBC 4.74 X 10*6/uL (4.40-5.60); RDW 12.6 % (11.5-14.5); WBC 7.68 X 10*3/uL (4.50-10.00)
== END | disposition home or self-care (01) ==
LOC: LABPAT 16:55
PROVIDERS: ATTEND Internal Medicine Clinical Cardiac Electrophysiology
DX: Z01.812 Encounter for preprocedural laboratory examination (principal); I48.0 Paroxysmal atrial fibrillation
CPT/HCPCS: 80051; 82565; 84520; 85027

== ENCOUNTER 2021-09-12 19:50 | Emergency (ER) | payer BC ==
[2021-09-12 20:21] VITALS: TEMP 98.3
--- NOTE | 2021-09-12 21:30 | ED ---
Arrhythmia/Palpitations HPI - General Chief Complaint: Arrhythmia/Palpitations Stated Complaint: Afib Time Seen by Provider: 09/12/21 21:28 Source: patient, RN notes reviewed, old records reviewed Mode of arrival: wheelchair Limitations: no limitations - History of Present Illness Initial Comments: This 46-year-old male DF for evaluation, he does have history of a fibrillation had a near syncopal episode prior hospital tonight. Patient states he felt fine throughout most of the day presents to the ER feeling improved. He went to take her dogs out felt like he would pass out. Patient's to bring him to the hospital. He did have maybe some chest pain was is all going on but no sweating or shortness of breath. Patient has otherwise no complaints taking all medications as prescribed no recent illness or fever MD Complaint: rapid heart beat, "heart racing", atrial fibrillation -: hour(s) Context: occurred during rest Arrhythmia History: atrial fibrillation, SVT Associated Symptoms: denies other symptoms, shortness of breath, syncope, anxiety Treatments Prior to Arrival: cardioversion (Patient is scheduled for cardioversion on Monday) - Related Data Home Medications Medication Instructions Recorded Confirmed Diclofenac Sodium [Voltaren] 75 mg PO BID 10/30/19 09/10/21 lisinopriL [Zestril] 10 mg PO DAILY 10/30/19 09/10/21 Atorvastatin [Lipitor] 5 mg PO DAILY 09/10/21 09/10/21 Flecainide Acetate 100 mg PO BID 09/10/21 09/10/21 Rivaroxaban [Xarelto] 20 mg PO DAILY 09/10/21 09/10/21 traZODone HCL [Desyrel] 50 mg PO HS 09/10/21 09/10/21 Allergies Allergy/AdvReac Type Severity Reaction Status Date / Time cephalexin [From Keflex] AdvReac Rash/Hives Verified 09/10/21 11:05 Review of Systems ROS Statement: Those systems with pertinent positive or pertinent negative responses have been documented in the HPI. ROS Other: All systems not noted in ROS Statement are negative. 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 PANNICULECTOMY January 2016; Past Anesthesia/Blood Transfusion Reactions: Previous Problems w/ Anesthesia Additional Past Anesthesia/Blood Transfusion Reaction / Comment(s): STATES TAKES LONG TIME TO WAKE UP Past Psychological History: Depression Smoking Status: Never smoker Past Alcohol Use History: None Reported Past Drug Use History: None Reported - Past Family History Father History Unknown: Yes Family Medical History: Congestive Heart Failure (CHF), Myocardial Infarction ([place]) Additional Family Medical History / Comment(s): SEVERAL MS'S. Mother Family Medical History: No Reported History Additional Family Medical History / Comment(s): HEALTHY Brother(s) History Unknown: Yes Family Medical History: Deep Vein Thrombosis (DVT), Pulmonary Embolus General Exam Limitations: no limitations General appearance: alert, in no apparent distress Head exam: Present: atraumatic, normocephalic, normal inspection Eye exam: Present: normal appearance, PERRL, EOMI. Absent: scleral icterus, conjunctival injection, periorbital swelling ENT exam: Present: normal exam, mucous membranes moist Neck exam: Present: normal inspection. Absent: tenderness, meningismus, lymphadenopathy Respiratory exam: Present: normal lung sounds bilaterally. Absent: respiratory distress, wheezes, rales, rhonchi, stridor Cardiovascular Exam: Present: regular rate, normal rhythm, normal heart sounds. Absent: systolic murmur, diastolic murmur, rubs, gallop, clicks GI/Abdominal exam: Present: soft, normal bowel sounds. Absent: distended, tenderness, guarding, rebound, rigid Extremities exam: Present: normal inspection, full ROM, normal capillary refill. Absent: tenderness, pedal edema, joint swelling, calf tenderness Back exam: Present: normal inspection Neurological exam: Present: alert, oriented X3, CN II-XII intact Psychiatric exam: Present: normal affect, normal mood Skin exam: Present: warm, dry, intact, normal color. Absent: rash Course Vital Signs 09/12/21 20:19 Temperature 98.3 F Pulse Rate 70 Respiratory 18 Rate Blood Pressure 125/72 O2 Sat by Pulse 98 Oximetry - Reevaluation(s) Reevaluation #1: 09/12/21 21:50 Medical record is reviewed Reevaluation #2: 09/12/21 21:50 Patient is informed of current normal heart rate and normal rhythm Reevaluation #3: 09/12/21 21:50 She states she continues to feel improved EKG Findings - EKG Comments: EKG Findings:: EKG is sinus rhythm 72 MA 170 QRS 105 QTc 441 Medical Decision Making - Medical Decision Making 46 male to the emergency department for evaluation of possible arrhythmia his tory of A. martha is been an A. fib scheduled for cardioversion Monday. Patient currently in sinus rhythm and feels well. - Lab Data Result diagrams: 09/12/21 21:36 09/12/21 21:36 Lab Results 09/12/21 09/12/21 09/12/21 Range/Units 21:36 21:36 21:36 WBC 8.4 (3.8-10.6) k/uL RBC 4.46 (4.30-5.90) m/uL Hgb 13.4 (13.0-17.5) gm/dL Hct 40.2 (39.0-53.0) % MCV 90.2 (80.0-100.0) fL MCH 30.0 (25.0-35.0) pg MCHC 33.2 (31.0-37.0) g/dL RDW 12.9 (11.5-15.5) % Plt Count 179 (150-450) k/uL MPV 7.2 Neutrophils % 54 % Lymphocytes % 36 % Monocytes % 6 % Eosinophils % 2 % Basophils % 0 % Neutrophils # 4.5 (1.3-7.7) k/uL Lymphocytes # 3.0 (1.0-4.8) k/uL Monocytes # 0.5 (0-1.0) k/uL Eosinophils # 0.2 (0-0.7) k/uL Basophils # 0.0 (0-0.2) k/uL Sodium 138 (137-145) mmol/L Potassium 4.3 (3.5-5.1) mmol/L Chloride 107 (98-107) mmol/L Carbon Dioxide 27 (22-30) mmol/L Anion Gap 4 mmol/L BUN 22 H (9-20) mg/dL Creatinine 0.81 (0.66-1.25) mg/dL Est GFR (CKD-EPI)AfAm >90 (>60 ml/min/1.73 sqM) Est GFR (CKD-EPI)NonAf >90 (>60 ml/min/1.73 sqM) Glucose 95 (74-99) mg/dL Calcium 8.6 (8.4-10.2) mg/dL Phosphorus 2.8 (2.5-4.5) mg/dL Magnesium 1.9 (1.6-2.3) mg/dL Total Bilirubin 0.2 (0.2-1.3) mg/dL AST 23 (17-59) U/L ALT 23 (4-49) U/L Alkaline Phosphatase 99 (38-126) U/L Troponin I <0.012 (0.000-0.034) ng/mL NT-Pro-B Natriuret Pep pg/mL Total Protein 6.6 (6.3-8.2) g/dL Albumin 3.7 (3.5-5.0) g/dL TSH 0.379 L (0.465-4.680) mIU/L 09/12/21 Range/Units 21:36 WBC (3.8-10.6) k/uL RBC (4.30-5.90) m/uL Hgb (13.0-17.5) gm/dL Hct (39.0-53.0) % MCV (80.0-100.0) fL MCH (25.0-35.0) pg MCHC (31.0-37.0) g/dL RDW (11.5-15.5) % Plt Count (150-450) k/uL MPV Neutrophils % % Lymphocytes % % Monocytes % % Eosinophils % % Basophils % % Neutrophils # (1.3-7.7) k/uL Lymphocytes # (1.0-4.8) k/uL Monocytes # (0-1.0) k/uL Eosinophils # (0-0.7) k/uL Basophils # (0-0.2) k/uL Sodium (137-145) mmol/L Potassium (3.5-5.1) mmol/L Chloride (98-107) mmol/L Carbon Dioxide (22-30) mmol/L Anion Gap mmol/L BUN (9-20) mg/dL Creatinine (0.66-1.25) mg/dL Est GFR (CKD-EPI)AfAm (>60 ml/min/1.73 sqM) Est GFR (CKD-EPI)NonAf (>60 ml/min/1.73 sqM) Glucose (74-99) mg/dL Calcium (8.4-10.2) mg/dL Phosphorus (2.5-4.5) mg/dL Magnesium (1.6-2.3) mg/dL Total Bilirubin (0.2-1.3) mg/dL AST (17-59) U/L ALT (4-49) U/L Alkaline Phosphatase (38-126) U/L Troponin I (0.000-0.034) ng/mL NT-Pro-B Natriuret Pep 53 pg/mL Total Protein (6.3-8.2) g/dL Albumin (3.5-5.0) g/dL TSH (0.465-4.680) mIU/L Disposition Clinical Impression: Palpitations, Near syncope, Atrial flutter, Atrial fibrillation Disposition: HOME SELF-CARE Condition: Good Instructions (If sedation given, give patient instructions): Heart Palpitations (ED) Is patient prescribed a controlled substance at d/c from ED?: No Referrals: Rodríguez Miranda III, MD [Primary Care Provider] - 1-2 days
[2021-09-12] MEDS ORDERED: SODIUM CHLORIDE 0.9% 500 ML 500 ML IV STA (21:47)
[2021-09-12 22:11] LABS: Basophils % (A) 0 %; Eosinophils # (A) 0.2 k/uL (0-0.7); Eosinophils % (A) 2 %; HCT 40.2 % (39.0-53.0); HGB 13.4 gm/dL (13.0-17.5); Lymphocytes % (A) 36 %; MCHC 33.2 g/dL (31.0-37.0); MCV 90.2 fL (80.0-100.0); Mean Platelet Volume 7.2; Monocytes # (A) 0.5 k/uL (0-1.0); Monocytes % (A) 6 %; Neutrophils # (A) 4.5 k/uL (1.3-7.7); Neutrophils % (A) 54 %; Platelet Count 179 k/uL (150-450); RBC 4.46 m/uL (4.30-5.90); RDW 12.9 % (11.5-15.5); WBC 8.4 k/uL (3.8-10.6)
[2021-09-12 22:20] LABS: ALT 23 U/L (4-49); AST 23 U/L (17-59); African American GFR (CKD) >90 (>60 ml/min/1.73 sqM); Albumin 3.7 g/dL (3.5-5.0); Alkaline Phosphatase 99 U/L (38-126); Anion Gap 4 mmol/L; Blood Urea Nitrogen 22 mg/dL (9-20); Calcium 8.6 mg/dL (8.4-10.2); Carbon Dioxide 27 mmol/L (22-30); Chloride 107 mmol/L (98-107); Glucose 95 mg/dL (74-99); Magnesium 1.9 mg/dL (1.6-2.3); Non-African American GFR(CKD) >90 (>60 ml/min/1.73 sqM); Phosphorus 2.8 mg/dL (2.5-4.5); Potassium 4.3 mmol/L (3.5-5.1); Sodium 138 mmol/L (137-145); Total Bilirubin 0.2 mg/dL (0.2-1.3); Total Protein 6.6 g/dL (6.3-8.2)
[2021-09-12 23:57] VITALS: BP 118/86; PULSE 58; RESP 18
== END 2021-09-12 23:30 | disposition home or self-care (01) ==
LOC: EC 19:50
DX: R55 Syncope and collapse (principal); R00.2 Palpitations; I48.92 Unspecified atrial flutter; Z88.1 Allergy status to other antibiotic agents; Z82.49 Family history of ischemic heart disease and other diseases of the circulatory system
CPT/HCPCS: 36415; 80053; 83735; 83880; 84100; 84439; 84443; 84484; 85025

== ENCOUNTER → 2021-09-14 | Day surgery (SDC) | payer BC ==
[2021-09-10 11:16] VITALS: BMI 46.2
[~2021-09-14] MED LIST changes: +LIDOCAINE 1% (10MG/ML) FOR IV START INTRADERMA PRN; +SODIUM CHLORIDE 0.9% 1,000 ML IV SCH
[2021-09-14 06:57] VITALS: BP 123/73; PULSE 64; RESP 16; TEMP 97.6
--- NOTE | 2021-09-14 08:11 | P.HPCAR ---
History of Present Illness This is Dr. Bolanos dictating an H/P on this patient The patient was interviewed and examined IMPRESSION / ASSESSMENT: Persistent atrial fibrillation status post chemical cardioversion on flecainide Admitted with chest discomfort in the ER and discharged home on September 12 Normal EKG normal troponin TSH mildly suppressed Patient is in sinus rhythm at this time ST segments normal QRS is narrow PLAN: No indication for electrical cardioversion now Repeat TSH and free T4 Repeat troponin 30 day event monitor to look for any sudden bradycardia that could explain his dizzy spells Continue Rivaroxaban at 20 mg by mouth daily He is asymptomatic at this time and I will schedule him for a 30 day event monitor to look for any bradycardia Thereafter we will consistent A. fib ablation summary can back off on flecainide Consider tilt table testing in the future Stress test to be scheduled Patient may go home HPI Patient came in for elective cardioversion today. He has no chest discomfort no dizziness or lightheadedness He was here in the ER on the complaining of being dizzy and lightheaded and had chest discomfort His EKG was normal is upon was normal He said he was lightheaded He had similar symptoms in January 2021 along with the warm flushed feeling ROS: No fever chills or rigors, no cough, phlegm or expectoration, no nausea, vomiting or diarrhea, no hematuria, dysuria, no musculoskeletal complaints, no strokes or seizures, no skin lesions. EXAMINATION: Normal blood pressure today. Normal heart rate 60 beats a minute REVIEW OF LABS, ECG & MEDICAL DATA Patient was in the ER on 12 of September complaining of chest discomfort Normal white count of 8.4 Normal hemoglobin of 13.4 Sodium 138 potassium 4.3 BUN 22 and creatinine 0.81 Normal liver function Normal troponin TSH 0.379 Medications include lisinopril, Rivaroxaban 20 mg daily flecainide 100 mg twice daily and atorvastatin 5 mg daily Blood pressure is normal 125/72 mmHg and the Today weight is normal 123/73 Physical Exam Vitals: Vital Signs Temp Pulse Resp BP Pulse Ox 09/14/21 06:55 97.6 F 64 16 123/73 97 Intake and Output 09/13/21 09/14/21 09/14/21 22:59 06:59 14:59 Other: Weight 168 kg Past Medical History Past Medical History: Atrial Fibrillation, Blood Disorder, GERD/Reflux, Sleep Apnea/CPAP/BIPAP Additional Past Medical History / Comment(s): no CPAP used, 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 PANNICULECTOMY January 2016; Past Anesthesia/Blood Transfusion Reactions: Previous Problems w/ Anesthesia Additional Past Anesthesia/Blood Transfusion Reaction / Comment(s): STATES TAKES LONG TIME TO WAKE UP Past Psychological History: Depression Smoking Status: Never smoker Past Alcohol Use History: None Reported Past Drug Use History: None Reported - Past Family History Father History Unknown: Yes Family Medical History: Congestive Heart Failure (CHF), Myocardial Infarction ([place]) Additional Family Medical History / Comment(s): SEVERAL [place]'S. Mother Family Medical History: No Reported History Additional Family Medical History / Comment(s): HEALTHY Brother(s) History Unknown: Yes Family Medical History: Deep Vein Thrombosis (DVT), Pulmonary Embolus Physical Examination Vital Signs Temp Pulse Resp BP Pulse Ox 09/14/21 06:55 97.6 F 64 16 123/73 97 Intake and Output 09/13/21 09/14/21 09/14/21 22:59 06:59 14:59 Other: Weight 168 kg Results Current Medications Generic Name Dose Route Start Last Admin Trade Name Freq PRN Reason Stop Dose Admin Sodium Chloride 1,000 mls @ 50 mls/hr 09/14/21 06:00 Saline 0.9% IV 10/14/21 06:01 .Q20H MARITA Lactated Ringer's 1,000 mls @ 20 mls/hr 09/14/21 06:00 Lactated Ringers IV 10/14/21 06:01 .Q24H MARITA Lidocaine HCl 0.1 ml 09/14/21 06:00 Lidocaine 1% (10mg/Ml) For Iv Start INTRADERMA 10/14/21 06:01 PER PROTOCOL PRN IV Start Intake and Output 09/13/21 09/14/21 09/14/21 22:59 06:59 14:59 Other: Weight 168 kg
== END ==
LOC: CATHCVL 06:24
PROVIDERS: ATTEND Internal Medicine Clinical Cardiac Electrophysiology
DX: I48.0 Paroxysmal atrial fibrillation (principal); Z20.822 Contact with and (suspected) exposure to COVID-19; I10 Essential (primary) hypertension; D68.51 Activated protein C resistance; E78.00 Pure hypercholesterolemia, unspecified; I49.5 Sick sinus syndrome; E78.5 Hyperlipidemia, unspecified; K21.9 Gastro-esophageal reflux disease without esophagitis; G47.30 Sleep apnea, unspecified; F32.A Depression, unspecified; E66.01 Morbid (severe) obesity due to excess calories; Z98.84 Bariatric surgery status; Z82.49 Family history of ischemic heart disease and other diseases of the circulatory system; Z79.01 Long term (current) use of anticoagulants; Z79.899 Other long term (current) drug therapy; Z88.0 Allergy status to penicillin
CPT/HCPCS: 84443; 87635; 93005

== ENCOUNTER 2021-10-17 18:57 | Emergency (ER) | payer BC ==
[2021-10-17] MEDS ORDERED: ACETAMINOPHEN TAB 500 MG TAB PO STA (19:45)
[2021-10-17] MEDS ORDERED: SODIUM CHLORIDE 0.9% 1,000 ML IV STA (19:45)
[2021-10-17] MEDS ORDERED: ONDANSETRON 4 MG/2 ML VIAL IVP STA (20:07)
[2021-10-17 20:22] LABS: Basophils # (A) 0.1 k/uL (0-0.2); Basophils % (A) 1 %; Eosinophils # (A) 0.2 k/uL (0-0.7); Eosinophils % (A) 2 %; HCT 40.6 % (39.0-53.0); HGB 13.2 gm/dL (13.0-17.5); Lymphocytes # (A) 1.6 k/uL (1.0-4.8); Lymphocytes % (A) 14 %; MCH 29.2 pg (25.0-35.0); MCHC 32.5 g/dL (31.0-37.0); MCV 89.9 fL (80.0-100.0); Monocytes # (A) 0.6 k/uL (0-1.0); Monocytes % (A) 6 %; Neutrophils # (A) 8.3 k/uL (1.3-7.7); Neutrophils % (A) 76 %; Platelet Count 179 k/uL (150-450); RBC 4.52 m/uL (4.30-5.90); RDW 12.7 % (11.5-15.5); WBC 10.9 k/uL (3.8-10.6)
[2021-10-17 20:35] LABS: ALT 35 U/L (4-49); AST 30 U/L (17-59); African American GFR (CKD) >90 (>60 ml/min/1.73 sqM); Alkaline Phosphatase 101 U/L (38-126); Anion Gap 7 mmol/L; Blood Urea Nitrogen 17 mg/dL (9-20); Calcium 8.8 mg/dL (8.4-10.2); Carbon Dioxide 27 mmol/L (22-30); Chloride 105 mmol/L (98-107); Glucose 99 mg/dL (74-99); Non-African American GFR(CKD) >90 (>60 ml/min/1.73 sqM); Potassium 4.1 mmol/L (3.5-5.1); Sodium 139 mmol/L (137-145); Total Bilirubin 0.4 mg/dL (0.2-1.3); Total Protein 6.8 g/dL (6.3-8.2)
--- NOTE | 2021-10-17 20:37 | XR ---
EXAMINATION TYPE: XR chest 2V DATE OF EXAM: 10/17/2021 COMPARISON: 01/20/2021 HISTORY: Cough and chills TECHNIQUE: 2 views FINDINGS: There is coarsening of the interstitial markings. There is relative poor inspiration. Heart size is normal. No obvious heart failure. There are chest leads. Costophrenic angles are clear. IMPRESSION: Inspiration decreased compared to old exam. There is crowding of the lower lobe lung los ings. No heart failure. There is possible interstitial pneumonia.
[2021-10-17 20:58] LABS: Appearance,Urine Clear (Clear); Bilirubin,Urine Negative (Negative); Blood,Urine Negative (Negative); Color,Urine Light Yellow; Glucose,Urine (UA) Negative (Negative); Ketones,Urine Negative (Negative); Leukocyte Esterase,Urine Negative (Negative); Nitrite,Urine Negative (Negative); PH, Urine 6.5 (5.0-8.0); Protein,Urine Negative (Negative); Specific Gravity,Urine 1.011 (1.001-1.035); Urobilinogen,Urine <2.0 mg/dL (<2.0)
[2021-10-17] MEDS ORDERED: DOXYCYCLINE 100 MG CAP PO STA (21:53)
--- NOTE | 2021-10-17 22:13 | ED ---
Fever HPI - General Chief Complaint: Fever Stated Complaint: palpitations, chills Source: patient Mode of arrival: ambulatory Limitations: no limitations - History of Present Illness Initial Comments: 46-year-old male with past medical history of A. 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 Reports that he was at home attempting to make potato salad for tomorrow when he felt instant chills, weakness, nausea. He called his who brought him up to the emergency department. Denies any sick contacts. Admits to a nonproductive cough. No shortness of breath. Denies any chest pain. No abdominal pain. No diarrhea or constipation. No black or bloody stools. Denies any issues with his urination. No headaches or visual changes. Does not take anything for fever control at home. No rashes. No other alleviating, precipitating or modifying factors - Related Data Home Medications Medication Instructions Recorded Confirmed Diclofenac Sodium [Voltaren] 75 mg PO BID 10/30/19 10/17/21 lisinopriL [Zestril] 10 mg PO DAILY 10/30/19 10/17/21 Flecainide Acetate [Tambocor] 100 mg PO BID 09/10/21 10/17/21 Rivaroxaban [Xarelto] 20 mg PO DAILY 09/10/21 10/17/21 Atorvastatin Calcium 20 mg PO HS 10/17/21 10/17/21 Metoprolol Succinate [Metoprolol 25 mg PO DAILY 10/17/21 10/17/21 Succinate ER] traZODone HCL 100 mg PO HS 10/17/21 10/17/21 Previous Rx's Medication Instructions Recorded Doxycycline Hyclate 100 mg PO BID 1 Days #14 tab 10/17/21 Metoprolol Tartrate 25 mg PO BID #30 tab 10/17/21 Allergies Allergy/AdvReac Type Severity Reaction Status Date / Time cephalexin [From Keflex] AdvReac Rash/Hives Verified 10/17/21 19:04 Review of Systems ROS Statement: Those systems with pertinent positive or pertinent negative responses have been documented in the HPI. ROS Other: All systems not noted in ROS Statement are negative. 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 PANNICULECTOMY January 2016; Past Anesthesia/Blood Transfusion Reactions: Previous Problems w/ Anesthesia Additional Past Anesthesia/Blood Transfusion Reaction / Comment(s): STATES TAKES LONG TIME TO WAKE UP Past Psychological History: Depression Smoking Status: Never smoker Past Alcohol Use History: None Reported Past Drug Use History: None Reported - Past Family History Father History Unknown: Yes Family Medical History: Congestive Heart Failure (CHF), Myocardial Infarction ([place]) Additional Family Medical History / Comment(s): SEVERAL [place]'S. Mother Family Medical History: No Reported History Additional Family Medical History / Comment(s): HEALTHY Brother(s) History Unknown: Yes Family Medical History: Deep Vein Thrombosis (DVT), Pulmonary Embolus General Exam Limitations: no limitations Course Vital Signs 10/17/21 10/17/21 10/17/21 19:01 21:48 22:40 Temperature 103.1 F H 99.7 F H 99.3 F Pulse Rate 98 90 84 Respiratory 24 18 20 Rate Blood Pressure 150/77 106/66 116/67 O2 Sat by Pulse 100 96 96 Oximetry Medical Decision Making - Medical Decision Making Upon arrival patient was placed into 3. A thorough history and physical exam was performed. IV access is established. Patient was given a liter bolus of normal saline, 4 mg of Zofran and a gram of Tylenol. Laboratory studies are conducted and reviewed. Urinalysis is negative. Covid and influenza are negative. Chest x-ray demonstrates questionable interstitial infiltrate. Patient is reevaluated and feels improved at this time. Continues to have minimal symptoms. Patient agreeable to discharge home and follow-up with his primary care doctor in 2-4 days. Return for any new or worsening symptoms. Patient was sent chest x-ray in 6 days to ensure resolution. Patient is to take Motrin and Tylenol alternating for fever. Patient will be prescribed doxycycline. He is discharged home in stable condition - Lab Data Result diagrams: 10/17/21 20:03 10/17/21 20:03 Lab Results 10/17/21 10/17/21 10/17/21 Range/Units 20:03 20:03 20:03 WBC 10.9 H (3.8-10.6) k/uL RBC 4.52 (4.30-5.90) m/uL Hgb 13.2 (13.0-17.5) gm/dL Hct 40.6 (39.0-53.0) % MCV 89.9 (80.0-100.0) fL MCH 29.2 (25.0-35.0) pg MCHC 32.5 (31.0-37.0) g/dL RDW 12.7 (11.5-15.5) % Plt Count 179 (150-450) k/uL MPV 7.0 Neutrophils % 76 % Lymphocytes % 14 % Monocytes % 6 % Eosinophils % 2 % Basophils % 1 % Neutrophils # 8.3 H (1.3-7.7) k/uL Lymphocytes # 1.6 (1.0-4.8) k/uL Monocytes # 0.6 (0-1.0) k/uL Eosinophils # 0.2 (0-0.7) k/uL Basophils # 0.1 (0-0.2) k/uL Sodium 139 (137-145) mmol/L Potassium 4.1 (3.5-5.1) mmol/L Chloride 105 (98-107) mmol/L Carbon Dioxide 27 (22-30) mmol/L Anion Gap 7 mmol/L BUN 17 (9-20) mg/dL Creatinine 0.87 (0.66-1.25) mg/dL Est GFR (CKD-EPI)AfAm >90 (>60 ml/min/1.73 sqM) Est GFR (CKD-EPI)NonAf >90 (>60 ml/min/1.73 sqM) Glucose 99 (74-99) mg/dL Plasma Lactic Acid Gerard 1.1 (0.7-2.0) mmol/L Calcium 8.8 (8.4-10.2) mg/dL Total Bilirubin 0.4 (0.2-1.3) mg/dL AST 30 (17-59) U/L ALT 35 (4-49) U/L Alkaline Phosphatase 101 (38-126) U/L Total Protein 6.8 (6.3-8.2) g/dL Albumin 4.0 (3.5-5.0) g/dL Urine Color Urine Appearance (Clear) Urine pH (5.0-8.0) Ur Specific [place] (1.001-1.035) Urine Protein (Negative) Urine Glucose (UA) (Negative) Urine Ketones (Negative) Urine Blood (Negative) Urine Nitrite (Negative) Urine Bilirubin (Negative) Urine Urobilinogen (<2.0) mg/dL Ur Leukocyte Esterase (Negative) Coronavirus (PCR) (Not Detectd) Influenza Type A RNA (Not Detectd) Influenza Type B (PCR) (Not Detectd) 10/17/21 10/17/21 10/17/21 Range/Units 20:03 20:03 20:41 WBC (3.8-10.6) k/uL RBC (4.30-5.90) m/uL Hgb (13.0-17.5) gm/dL Hct (39.0-53.0) % MCV (80.0-100.0) fL MCH (25.0-35.0) pg MCHC (31.0-37.0) g/dL RDW (11.5-15.5) % Plt Count (150-450) k/uL MPV Neutrophils % % Lymphocytes % % Monocytes % % Eosinophils % % Basophils % % Neutrophils # (1.3-7.7) k/uL Lymphocytes # (1.0-4.8) k/uL Monocytes # (0-1.0) k/uL Eosinophils # (0-0.7) k/uL Basophils # (0-0.2) k/uL Sodium (137-145) mmol/L Potassium (3.5-5.1) mmol/L Chloride (98-107) mmol/L Carbon Dioxide (22-30) mmol/L Anion Gap mmol/L BUN (9-20) mg/dL Creatinine (0.66-1.25) mg/dL Est GFR (CKD-EPI)AfAm (>60 ml/min/1.73 sqM) Est GFR (CKD-EPI)NonAf (>60 ml/min/1.73 sqM) Glucose (74-99) mg/dL Plasma Lactic Acid Gerard (0.7-2.0) mmol/L Calcium (8.4-10.2) mg/dL Total Bilirubin (0.2-1.3) mg/dL AST (17-59) U/L ALT (4-49) U/L Alkaline Phosphatase (38-126) U/L Total Protein (6.3-8.2) g/dL Albumin (3.5-5.0) g/dL Urine Color Light Yellow Urine Appearance Clear (Clear) Urine pH 6.5 (5.0-8.0) Ur Specific [place] 1.011 (1.001-1.035) Urine Protein Negative (Negative) Urine Glucose (UA) Negative (Negative) Urine Ketones Negative (Negative) Urine Blood Negative (Negative) Urine Nitrite Negative (Negative) Urine Bilirubin Negative (Negative) Urine Urobilinogen <2.0 (<2.0) mg/dL Ur Leukocyte Esterase Negative (Negative) Coronavirus (PCR) Not Detected (Not Detectd) Influenza Type A RNA Not Detected (Not Detectd) Influenza Type B (PCR) Not Detected (Not Detectd) - EKG Data EKG Comments: EKG demonstrates sinus rhythm with a rate of 88. FL interval 148. QRS is 90. QTC of 407. No acute ST segment elevations or depressions Disposition Clinical Impression: Fever, Community acquired pneumonia Disposition: HOME SELF-CARE Condition: Stable Instructions (If sedation given, give patient instructions): Fever in Adults (ED) Additional Instructions: Take the antibiotics as directed and follow-up with your primary care doctor in 2-4 days. Take Tylenol for fevers every 6 hours. Return for any new or worsening symptoms Prescriptions: Doxycycline Hyclate 100 mg PO BID 1 Days #14 tab Metoprolol Tartrate 25 mg PO BID #30 tab Is patient prescribed a controlled substance at d/c from ED?: No Referrals: Rodríguez Miranda III, MD [Primary Care Provider] - 1-2 days Time of Disposition: 22:13
[2021-10-17 22:41] VITALS: BP 116/67; PULSE 84; RESP 20; TEMP 99.3
== END 2021-10-17 22:40 | disposition home or self-care (01) ==
LOC: EC 18:57
DX: Z20.822 Contact with and (suspected) exposure to COVID-19 (principal); J18.9 Pneumonia, unspecified organism; I48.91 Unspecified atrial fibrillation; K21.9 Gastro-esophageal reflux disease without esophagitis; F32.A Depression, unspecified; Z79.01 Long term (current) use of anticoagulants; Z79.899 Other long term (current) drug therapy
CPT/HCPCS: 36415; 80053; 83605; 85025; 81003; 87502; 87635; 71046; 99285; 96374; 96361 ×3; J2405

== ENCOUNTER 2021-10-19 20:51 | Inpatient (IN) | payer BC ==
--- NOTE | 2021-10-19 21:30 | ED ---
SOB HPI - General Chief Complaint: Shortness of Breath Stated Complaint: Chest Pain Time Seen by Provider: 10/19/21 21:24 Source: patient, RN notes reviewed, old records reviewed Mode of arrival: ambulatory Limitations: no limitations - History of Present Illness Initial Comments: This is a 46-year-old male to the ER for evaluation. Patient presents today for evaluation regards to not feeling well. There is a diagnosis fever pneumonia 2 days ago. Patient presents today with elevated heart rate chest pain arm numbness and tingling leg numbness and tingling left leg pain. Patient does have swelling and redness to his left leg significant elevated heart rate. Patient does have history of atrial fibrillation. Patient denies having current fever. Has not started antibiotics for diagnosis of pneumonia earlier this week MD Complaint: shortness of breath, chest pain -: days(s) Radiation: left arm, other (Left lower extremity pain) Severity: moderate Severity scale (1-10): 6 Quality: aching, throbbing Consistency: constant Improves With: nothing Worsens With: nothing Known History Of: other (A. fib with RVR) Context: recent URI, recent illness, other (Recent diagnosis of pneumonia) Associated Symptoms: cough, lower extremity pain, abdominal pain, other (Shortness of breath) Treatments Prior to Arrival: none - Related Data Home Medications Medication Instructions Recorded Confirmed Diclofenac Sodium [Voltaren] 75 mg PO BID 10/30/19 10/19/21 lisinopriL [Zestril] 10 mg PO DAILY 10/30/19 10/19/21 Rivaroxaban [Xarelto] 20 mg PO DAILY 09/10/21 10/19/21 Atorvastatin Calcium 20 mg PO HS 10/17/21 10/19/21 Metoprolol Succinate [Metoprolol 25 mg PO BID 10/17/21 10/19/21 Succinate ER] traZODone HCL 100 mg PO HS PRN 10/17/21 10/19/21 Doxycycline Hyclate 100 mg PO DIRECTED 10/19/21 10/19/21 Allergies Allergy/AdvReac Type Severity Reaction Status Date / Time cephalexin [From Keflex] AdvReac Rash/Hives Verified 10/19/21 23:52 Review of Systems ROS Statement: Those systems with pertinent positive or pertinent negative responses have been documented in the HPI. ROS Other: All systems not noted in ROS Statement are negative. 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 PANNICULECTOMY January 2016; Past Anesthesia/Blood Transfusion Reactions: Previous Problems w/ Anesthesia Additional Past Anesthesia/Blood Transfusion Reaction / Comment(s): STATES TAKES LONG TIME TO WAKE UP Past Psychological History: Depression Smoking Status: Never smoker Past Alcohol Use History: None Reported Past Drug Use History: None Reported - Past Family History Father History Unknown: Yes Family Medical History: Congestive Heart Failure (CHF), Myocardial Infarction ([place]) Additional Family Medical History / Comment(s): SEVERAL [place]'S. Mother Family Medical History: No Reported History Additional Family Medical History / Comment(s): HEALTHY Brother(s) History Unknown: Yes Family Medical History: Deep Vein Thrombosis (DVT), Pulmonary Embolus General Exam Limitations: no limitations General appearance: alert, in no apparent distress, anxious Head exam: Present: atraumatic, normocephalic, normal inspection Eye exam: Present: normal appearance, PERRL, EOMI. Absent: scleral icterus, conjunctival injection, periorbital swelling ENT exam: Present: normal exam, mucous membranes dry Neck exam: Present: normal inspection. Absent: tenderness, meningismus, lymphadenopathy Respiratory exam: Present: normal lung sounds bilaterally. Absent: respiratory distress, wheezes, rales, rhonchi, stridor Cardiovascular Exam: Present: tachycardia, irregular rhythm, normal heart sounds. Absent: systolic murmur, diastolic murmur, rubs, gallop, clicks GI/Abdominal exam: Present: soft, normal bowel sounds. Absent: distended, tenderness, guarding, rebound, rigid Extremities exam: Present: tenderness (Left lower extremity pain swelling and redness), normal capillary refill. Absent: pedal edema, joint swelling, calf tenderness Back exam: Present: normal inspection Neurological exam: Present: alert, oriented X3, CN II-XII intact Psychiatric exam: Present: normal affect, normal mood Skin exam: Present: warm, dry, intact, normal color. Absent: rash Course Vital Signs 10/19/21 10/19/21 10/19/21 20:55 22:13 22:32 Temperature 99 F Pulse Rate 58 L 144 H 85 Respiratory 20 18 18 Rate Blood Pressure 100/52 97/69 100/69 O2 Sat by Pulse 96 96 96 Oximetry 10/19/21 23:40 Temperature Pulse Rate 83 Respiratory 18 Rate Blood Pressure 107/70 O2 Sat by Pulse 96 Oximetry - Reevaluation(s) Reevaluation #1: 10/19/21 22:05 Medical record is reviewed Medical Decision Making - Medical Decision Making 46 male to the emergency department for multiple complaints, recent fever left lower extremity cellulitis and patient is in atrial fibrillation with RVR. Patient is currently rate controlled he did have a soft blood pressure originally which is improved with successful resuscitation. Patient will be admitted for cardiology evaluation antibiotics for infection - Lab Data Result diagrams: 10/19/21 21:50 10/19/21 21:50 Lab Results 10/19/21 10/19/21 10/19/21 Range/Units 21:50 21:50 21:50 WBC 8.5 (3.8-10.6) k/uL RBC 5.01 (4.30-5.90) m/uL Hgb 14.9 (13.0-17.5) gm/dL Hct 44.3 (39.0-53.0) % MCV 88.6 (80.0-100.0) fL MCH 29.8 (25.0-35.0) pg MCHC 33.7 (31.0-37.0) g/dL RDW 12.6 (11.5-15.5) % Plt Count 146 L (150-450) k/uL MPV 7.5 Neutrophils % 68 % Lymphocytes % 18 % Monocytes % 9 % Eosinophils % 2 % Basophils % 1 % Neutrophils # 5.8 (1.3-7.7) k/uL Lymphocytes # 1.5 (1.0-4.8) k/uL Monocytes # 0.7 (0-1.0) k/uL Eosinophils # 0.1 (0-0.7) k/uL Basophils # 0.1 (0-0.2) k/uL PT (9.0-12.0) sec INR (<1.2) APTT (22.0-30.0) sec Sodium 137 (137-145) mmol/L Potassium 4.8 (3.5-5.1) mmol/L Chloride 105 (98-107) mmol/L Carbon Dioxide 23 (22-30) mmol/L Anion Gap 9 mmol/L BUN 23 H (9-20) mg/dL Creatinine 1.02 (0.66-1.25) mg/dL Est GFR (CKD-EPI)AfAm >90 (>60 ml/min/1.73 sqM) Est GFR (CKD-EPI)NonAf 87 (>60 ml/min/1.73 sqM) Glucose 107 H (74-99) mg/dL Plasma Lactic Acid Gerard 1.6 (0.7-2.0) mmol/L Calcium 9.1 (8.4-10.2) mg/dL Magnesium 1.7 (1.6-2.3) mg/dL Total Bilirubin 1.0 (0.2-1.3) mg/dL AST 40 (17-59) U/L ALT 35 (4-49) U/L Alkaline Phosphatase 100 (38-126) U/L Troponin I (0.000-0.034) ng/mL NT-Pro-B Natriuret Pep pg/mL Total Protein 7.6 (6.3-8.2) g/dL Albumin 4.1 (3.5-5.0) g/dL 10/19/21 10/19/21 10/19/21 Range/Units 21:50 21:50 23:53 WBC (3.8-10.6) k/uL RBC (4.30-5.90) m/uL Hgb (13.0-17.5) gm/dL Hct (39.0-53.0) % MCV (80.0-100.0) fL MCH (25.0-35.0) pg MCHC (31.0-37.0) g/dL RDW (11.5-15.5) % Plt Count (150-450) k/uL MPV Neutrophils % % Lymphocytes % % Monocytes % % Eosinophils % % Basophils % % Neutrophils # (1.3-7.7) k/uL Lymphocytes # (1.0-4.8) k/uL Monocytes # (0-1.0) k/uL Eosinophils # (0-0.7) k/uL Basophils # (0-0.2) k/uL PT 12.9 H (9.0-12.0) sec INR 1.2 H (<1.2) APTT 27.2 (22.0-30.0) sec Sodium (137-145) mmol/L Potassium (3.5-5.1) mmol/L Chloride (98-107) mmol/L Carbon Dioxide (22-30) mmol/L Anion Gap mmol/L BUN (9-20) mg/dL Creatinine (0.66-1.25) mg/dL Est GFR (CKD-EPI)AfAm (>60 ml/min/1.73 sqM) Est GFR (CKD-EPI)NonAf (>60 ml/min/1.73 sqM) Glucose (74-99) mg/dL Plasma Lactic Acid Gerard (0.7-2.0) mmol/L Calcium (8.4-10.2) mg/dL Magnesium (1.6-2.3) mg/dL Total Bilirubin (0.2-1.3) mg/dL AST (17-59) U/L ALT (4-49) U/L Alkaline Phosphatase (38-126) U/L Troponin I <0.012 (0.000-0.034) ng/mL NT-Pro-B Natriuret Pep 681 pg/mL Total Protein (6.3-8.2) g/dL Albumin (3.5-5.0) g/dL - EKG Data -: EKG Interpreted by Me (EKG shows A. fib with RVR will 42 QRS 90 QTC 389) - Radiology Data Radiology results: report reviewed (Chest x-ray negative for acute disease ultrasound left lower extremity negative for DVT), image reviewed Disposition Clinical Impression: Abdominal pain, Fever, Palpitations, Atrial fibrillation with RVR, Left leg cellulitis Disposition: ADMITTED IP TO THIS [facility] Condition: Good Is patient prescribed a controlled substance at d/c from ED?: No Referrals: Rodríguez Miranda III, MD [Primary Care Provider] - 1-2 days
[2021-10-19] MEDS ORDERED: ACETAMINOPHEN TAB 500 MG TAB PO STA (21:50)
[2021-10-19] MEDS ORDERED: IBUPROFEN 800 MG TAB PO STA (21:50)
[2021-10-19] MEDS ORDERED: SODIUM CHLORIDE 0.9% 1,000 ML IV STA ×3 (21:50→23:42)
[2021-10-19] MEDS ORDERED: DILTIAZEM DRIP BOLUS FROM BAG 1 MG SOLN IV ONE (21:50)
[2021-10-19] MEDS ORDERED: LEVOFLOXACIN 750MG-D5W PMX 750 MG in DEXTROSE/WATER 1 150ML.BAG IVPB STA (21:51)
[2021-10-19 22:01] LABS: Basophils # (A) 0.1 k/uL (0-0.2); Basophils % (A) 1 %; Eosinophils # (A) 0.1 k/uL (0-0.7); Eosinophils % (A) 2 %; HCT 44.3 % (39.0-53.0); HGB 14.9 gm/dL (13.0-17.5); Lymphocytes # (A) 1.5 k/uL (1.0-4.8); Lymphocytes % (A) 18 %; MCH 29.8 pg (25.0-35.0); MCHC 33.7 g/dL (31.0-37.0); MCV 88.6 fL (80.0-100.0); Mean Platelet Volume 7.5; Monocytes # (A) 0.7 k/uL (0-1.0); Monocytes % (A) 9 %; Neutrophils # (A) 5.8 k/uL (1.3-7.7); Neutrophils % (A) 68 %; Platelet Count 146 k/uL (150-450); RBC 5.01 m/uL (4.30-5.90); RDW 12.6 % (11.5-15.5); WBC 8.5 k/uL (3.8-10.6)
[2021-10-19 22:14] LABS: ALT 35 U/L (4-49); AST 40 U/L (17-59); African American GFR (CKD) >90 (>60 ml/min/1.73 sqM); Albumin 4.1 g/dL (3.5-5.0); Alkaline Phosphatase 100 U/L (38-126); Anion Gap 9 mmol/L; Blood Urea Nitrogen 23 mg/dL (9-20); Calcium 9.1 mg/dL (8.4-10.2); Carbon Dioxide 23 mmol/L (22-30); Chloride 105 mmol/L (98-107); Glucose 107 mg/dL (74-99); Magnesium 1.7 mg/dL (1.6-2.3); Non-African American GFR(CKD) 87 (>60 ml/min/1.73 sqM); Sodium 137 mmol/L (137-145); Total Protein 7.6 g/dL (6.3-8.2)
[2021-10-19] MEDS: DILTIAZEM 125 MG in SODIUM CHLORIDE 0.9% 100 ML IV SCH (22:14)
[2021-10-19 22:21] LABS: Potassium 4.8 mmol/L (3.5-5.1)
--- NOTE | 2021-10-19 22:26 | XR ---
EXAMINATION TYPE: XR chest 1V portable DATE OF EXAM: 10/19/2021 COMPARISON: 10/17/2021 HISTORY: Short of breath TECHNIQUE: FINDINGS: There is some mild linear density at the lung bases. No heart failure. Heart size is normal . There are no hilar masses. IMPRESSION: There is some mild atelectasis at the lung bases which is increased compared to recent ex am. No heart failure. Poor inspiration.
[2021-10-19] MEDS ORDERED: SODIUM CHLORIDE 0.9% 500 ML 500 ML IV STA (23:42)
--- NOTE | 2021-10-19 23:42 | US ---
EXAMINATION TYPE: US venous doppler duplex LE LT DATE OF EXAM: 10/19/2021 11:23 PM COMPARISON: 12/20/2019 CLINICAL HISTORY: DVT. hx of DVT; left calf tenderness and redness SIDE PERFORMED: Left TECHNIQUE: The lower extremity deep venous system is examined utilizing real time linear array sonog elver with graded compression, doppler sonography and color-flow sonography. VESSELS IMAGED: Common Femoral Vein Deep Femoral Vein Greater Saphenous Vein * Femoral Vein Popliteal Vein Small Saphenous Vein * Proximal Calf Veins (* superficial vessels) Left Leg: Negative for DVT IMPRESSION: No evidence of deep vein thrombosis in the left leg.
[2021-10-20 00:14] LABS: INR 1.2 (<1.2); Partial Thromboplastin Time 27.2 sec (22.0-30.0); Prothrombin Time 12.9 sec (9.0-12.0)
[2021-10-20] MEDS ORDERED: NALOXONE 0.4 MG/ML 1 ML VIAL IV PRN (00:22)
[2021-10-20] MEDS ORDERED: ONDANSETRON 4 MG/2 ML VIAL IVP PRN (00:22)
[2021-10-20] MEDS ORDERED: MORPHINE SULFATE 4 MG/ML SYRINGE IV PRN (00:22)
[2021-10-20] MEDS: SODIUM CHLORIDE 0.9% 1,000 ML IV SCH ×4 (07:21→21:46)
--- NOTE | 2021-10-20 07:57 | P.HPIM ---
History of Present Illness This is a pleasant 46 years old male with past medical history of atrial Fibrillation on xarelto, GERD/Reflux, Sleep Apnea/CPAP/BIPAP, Presents because of chest pain or dyspnea of one-day duration. Patient says that the chest pain was central, nonradiating about 70/10 but iscompletely resolved. Also his breathing difficulty resolved. No coughing. Also he noticed swelling and redness in his left leg started to yesterday. He denies diarrhea vomiting or abdominal pain. No urinary complaints, no weakness or numbness or vertigo symptoms. Patient states that he is ALLERGIC to Keflex causes a rash Vitals are stable, blood pressure was on the low side on admission with tachycardia but currently is 170/97 and heart rate 90. Afebrile on admission. Labs including CBC, INR, BMP and liver enzymes are unremarkable. Troponin 3 a re negative a 0.012 and proBNP 681. Chest x-ray: No acute process. Mild atelectasis in the lung bases which increased compared to recent exam. No heart failure. Poor inspiration. EKG: Atrial fibrillation with RVR at 129 Left leg venous Doppler: No acute DVT On admission patient has since normal saline him a Cardizem drip and Levaquin Review of Systems CONSTITUTIONAL: No fever, no malaise, no fatigue. HEENT: No recent visual problems or hearing problems. Denied any sore throat. CARDIOVASCULAR: No orthopnea, PND, no palpitations, no syncope. PULMONARY: No shortness of breath, no cough, no hemoptysis. GASTROINTESTINAL: No diarrhea, no nausea, no vomiting, no abdominal pain. Normoactive bowel sounds. NEUROLOGICAL: No headaches, no weakness, no numbness. HEMATOLOGICAL: Denies any bleeding or petechiae. GENITOURINARY: Denies any burning micturition, frequency, or urgency. MUSCULOSKELETAL/RHEUMATOLOGICAL: Denies any joint pain, swelling, or any muscle pain. ENDOCRINE: Denies any polyuria or polydipsia. 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 PANNICULECTOMY January 2016; Past Anesthesia/Blood Transfusion Reactions: Previous Problems w/ Anesthesia Additional Past Anesthesia/Blood Transfusion Reaction / Comment(s): STATES TAKES LONG TIME TO WAKE UP Past Psychological History: Depression Smoking Status: Never smoker Past Alcohol Use History: None Reported Past Drug Use History: None Reported - Past Family History Father History Unknown: Yes Family Medical History: Congestive Heart Failure (CHF), Myocardial Infarction (NV) Additional Family Medical History / Comment(s): SEVERAL NV'S. Mother Family Medical History: No Reported History Additional Family Medical History / Comment(s): HEALTHY Brother(s) History Unknown: Yes Family Medical History: Deep Vein Thrombosis (DVT), Pulmonary Embolus Medications and Allergies Home Medications Medication Instructions Recorded Confirmed Type Diclofenac Sodium [Voltaren] 75 mg PO BID 10/30/19 10/19/21 History lisinopriL [Zestril] 10 mg PO DAILY 10/30/19 10/19/21 History Rivaroxaban [Xarelto] 20 mg PO DAILY 09/10/21 10/19/21 History Atorvastatin Calcium 20 mg PO HS 10/17/21 10/19/21 History Metoprolol Succinate [Metoprolol 25 mg PO BID 10/17/21 10/19/21 History Succinate ER] traZODone HCL 100 mg PO HS PRN 10/17/21 10/19/21 History Doxycycline Hyclate 100 mg PO DIRECTED 10/19/21 10/19/21 History Allergies Allergy/AdvReac Type Severity Reaction Status Date / Time cephalexin [From Keflex] AdvReac Rash/Hives Verified 10/19/21 23:52 Physical Exam Vitals: Vital Signs Temp Pulse Resp BP Pulse Ox 10/20/21 05:28 90 19 117/97 96 10/20/21 04:05 98 18 116/91 95 10/19/21 23:40 83 18 107/70 96 10/19/21 22:32 85 18 100/69 96 10/19/21 22:13 144 H 18 97/69 96 10/19/21 20:55 99 F 58 L 20 100/52 96 Intake and Output 10/19/21 10/19/21 10/20/21 14:59 22:59 06:59 Other: Weight 167.829 kg -GENERAL: The patient is alert and oriented x3, not in any acute distress. Obese HEENT: Pupils are round and equally reacting to light. EOMI. No scleral icterus. No conjunctival pallor. Normocephalic, atraumatic. No pharyngeal erythema. No thyromegaly. CARDIOVASCULAR: S1 and S2 present. No murmurs, rubs, or gallops. PULMONARY: Chest is clear to auscultation, no wheezing or crackles. ABDOMEN: Soft, nontender, nondistended, normoactive bowel sounds. No palpable organomegaly. MUSCULOSKELETAL: No joint swelling or deformity. -EXTREMITIES: No cyanosis, clubbing, or pedal edema. Left leg cellulitis with swelling, tenderness and redness NEUROLOGICAL: Gross neurological examination did not reveal any focal deficits. SKIN: No rashes. No petechiae Results CBC & Chem 7: 10/19/21 21:50 10/19/21 21:50 Labs: Abnormal Lab Results - Last 24 Hours (Table) 10/19/21 10/19/21 10/19/21 Range/Units 21:50 21:50 23:53 Plt Count 146 L (150-450) k/uL PT 12.9 H (9.0-12.0) sec INR 1.2 H (<1.2) BUN 23 H (9-20) mg/dL Glucose 107 H (74-99) mg/dL Assessment and Plan Assessment: Atrial fibrillation with RVR on admission on Xarelto Acute Left leg cellulitis History of GERD History of sleep apnea Obesity with BMI of 46.2 Plan: This is a pleasant 46 his old male who presents with A. fib and RVR and left leg cellulitis Continue with Levaquin Infectious disease team consult Continue with Cardizem and switch to oral medication when more suitable. Continue with Xarelto Cardiology consult Labs and medication were reviewed.. Continue same treatment. Continue with symptomatic treatment. Resume home medication. Monitor lytes and vitals. DVT and GI prophylaxis. Further recommendations depends on the clinical course of the patient DVT prophylaxis: Xarelto GI Prophylaxis: Pepcid PT/OT: Pending Prognosis is guarded
[2021-10-20] MEDS: lisinopriL 10 MG TAB PO SCH (08:29)
[2021-10-20] MEDS: RIVAROXABAN 20 MG TAB PO SCH (08:29)
[2021-10-20] MEDS ORDERED: METOPROLOL SUCCINATE (ER) 25 MG TAB.ER.24H PO SCH (09:00)
[2021-10-20] MEDS ORDERED: METOPROLOL SUCCINATE (ER) 25 MG TAB.ER.24H PO STA (11:07)
--- NOTE | 2021-10-20 11:07 | P.CRDCN ---
History of Present Illness History of present illness: HISTORY OF PRESENTING ILLNESS Patient is a pleasant 46-year-old male with history of persistent atrial fibrillation, GERD, obstructive sleep apnea noncompliant with CPAP, hypertension, hyperlipidemia. He states that initially on 10/17 he developed onset of shortness breath along with feeling nauseous and fever up to 103. He presented to ER and chest x-ray showed concern of pneumonia and was placed on antibiotics going home. Unfortunately was unable to start the antibiotics. He slept most of 10/18 and then tried to go to work on 10/19 however was feeling fatigued, somewhat short of breath and nauseous and therefore presented to ER. Additionally he started noticing increased swelling and erythema of the left lower extremity. He was found to be in A. fib with RVR and placed on Cardizem drip at 5. He did have recent event monitor and follows with Dr. Bolanos in the office. After event monitor he was taken off of flexion night and increased on the metoprolol up to 25 mg twice a day. Normally he cannot really feel his heart racing that much and unsure if he is normally in A. fib or not. There have been prior discussions regarding possible EPIFANIO/CV however at the time that been in sinus rhythm as well as possible ablation however this had not been scheduled yet. Denies any chest pain or pressure. Initial blood work from 10/17 showed white blood cell count 10.9 however 10/19 showed normal 8.5, creatinine 0.87, 1.0, troponin negative 2, proBNP 681, influenza in coronavirus negative. EKG shows A. fib with RVR with heart rate 140 with normal axis and nonspecific T-wave inversions inferiorly and laterally. REVIEW OF SYSTEMS At the time of my exam: CONSTITUTIONAL: +fever, +prior chills. CARDIOVASCULAR: Denies chest pain, +shortness of breath, no orthopnea, PND or palpitations. RESPIRATORY: Denies cough. GASTROINTESTINAL: Denies abdominal pain, diarrhea, constipation, +nausea + vomiting. MUSCULOSKELETAL: Denies myalgias. NEUROLOGIC: Denies numbness, tingling or weakness. ENDOCRINE: Denies fatigue, weight change, polydipsia or polyurina. GENITOURINARY: Denies burning, hematuria or urgency with micturation. HEMATOLOGIC: Denies history of anemia or bleeding. PHYSICAL EXAMINATION Vital signs reviewed. CONSTITUTIONAL: No apparent distress, obese HEENT: Head is normocephalic. Pupils are equal, round. Sclerae anicteric. Mucous membranes of the mouth are moist. No JVD. No carotid bruit. CHEST EXAMINATION: Lungs are clear to auscultation. No chest wall tenderness is noted on palpation or with deep breathing. HEART EXAMINATION: Regular rate and rhythm. S1, S2 heard. No murmurs, gallops or rub. ABDOMEN: Soft, nontender. Positive bowel sounds. EXTREMITIES: 2+ peripheral pulses, trace lower extremity edema and +LLE erythema consistent with cellulitis. NEUROLOGIC EXAMINATION: Patient is awake, alert and oriented x3. ASSESSMENT 1. Persistent atrial fibrillation with RVR 2. Dyspnea likely related to A. fib with RVR 3. Left lower extremity cellulitis 4. Sepsis with fever, chills, white blood cell count may be related to cellulitis versus other 5. Hypertension 6. Obstructive sleep apnea PLAN Patient's main presentation appears related to his sepsis with increased fatigue, nausea, fevers and chills. Source may be related to cellulitis however rule out other etiology. Continue supportive care. Infectious disease recommendations appreciated. We will increase the metoprolol to 50 mg twice a day and monitor response. Attempt to wean Cardizem drip. Check 2-D echo. No symptoms of chest pain or angina-type symptoms. Further recommendations to follow. Past Medical History Past Medical History: Atrial Fibrillation, Blood Disorder, Deep Vein Thrombosis (DVT), GERD/Reflux, Sleep Apnea/CPAP/BIPAP Additional Past Medical History / Comment(s): Pt seen in ER 10/17/21 and diagnosed with pneumonia/fever. Other hx: Paroxysmal Afib, Factor V, DVT R leg, SEBASTIEN and pt states in the process of getting device, colitis. History of Any Multi-Drug Resistant Organisms: None Reported Past Surgical History: Bariatric Surgery, Cholecystectomy, Orthopedic Surgery Additional Past Surgical History / Comment(s): Gastric sleeve, post op abdominal abscess/abdomin washed out, panniculectomy, EGD, colonoscopy, cyst removed from upper back and tailbone, ORIF R ankle (hardware removed), R knee surgery for chip/fracture. Past Anesthesia/Blood Transfusion Reactions: Previous Problems w/ Anesthesia Additional Past Anesthesia/Blood Transfusion Reaction / Comment(s): STATES TAKES LONG TIME TO WAKE UP Smoking Status: Never smoker - Past Family History Father History Unknown: Yes Family Medical History: Congestive Heart Failure (CHF), Myocardial Infarction ([place]) Additional Family Medical History / Comment(s): SEVERAL MA'S. Mother Family Medical History: Skin Disorder Additional Family Medical History / Comment(s): Cellulitis Brother(s) History Unknown: Yes Family Medical History: AFIB, Deep Vein Thrombosis (DVT), Pulmonary Embolus Medications and Allergies Home Medications Medication Instructions Recorded Confirmed Type Diclofenac Sodium [Voltaren] 75 mg PO BID 10/30/19 10/19/21 History lisinopriL [Zestril] 10 mg PO DAILY 10/30/19 10/19/21 History Rivaroxaban [Xarelto] 20 mg PO DAILY 09/10/21 10/19/21 History Atorvastatin Calcium 20 mg PO HS 10/17/21 10/19/21 History Metoprolol Succinate [Metoprolol 25 mg PO BID 10/17/21 10/19/21 History Succinate ER] traZODone HCL 100 mg PO HS PRN 10/17/21 10/19/21 History Doxycycline Hyclate 100 mg PO DIRECTED 10/19/21 10/19/21 History Allergies Allergy/AdvReac Type Severity Reaction Status Date / Time cephalexin [From Keflex] AdvReac Rash/Hives Verified 10/19/21 23:52 Physical Exam Vitals: Vital Signs Temp Pulse Resp BP Pulse Ox 10/20/21 08:00 69 18 112/74 97 10/20/21 07:30 133 H 141/111 98 10/20/21 07:00 91 124/90 98 10/20/21 06:30 96 141/103 98 10/20/21 06:00 77 133/77 98 10/20/21 05:30 86 117/97 97 10/20/21 05:28 90 19 117/97 96 10/20/21 05:00 100 126/102 96 10/20/21 04:30 82 112/97 93 L 10/20/21 04:05 98 18 116/91 95 10/20/21 04:00 88 119/91 95 10/20/21 03:30 90 131/102 96 10/20/21 03:00 85 126/90 96 10/20/21 02:30 90 131/94 98 10/20/21 02:00 92 116/93 96 10/20/21 01:30 89 114/80 96 10/20/21 01:00 100 114/80 94 L 10/20/21 00:30 110 H 125/86 95 10/20/21 00:00 99 111/78 95 10/19/21 23:40 83 18 107/70 96 10/19/21 23:30 83 107/71 95 10/19/21 23:00 97 103/76 96 10/19/21 22:32 85 18 100/69 96 10/19/21 22:30 87 97/69 97 10/19/21 22:13 144 H 18 97/69 96 10/19/21 22:00 154 H 10/19/21 21:30 140 H 99/81 10/19/21 21:13 144 H 10/19/21 20:55 99 F 58 L 20 100/52 96 Intake and Output 10/19/21 10/20/21 10/20/21 22:59 06:59 14:59 Other: Weight 167.829 kg 167.829 kg Results 10/19/21 21:50 10/19/21 21:50 Cardiac Enzymes 10/19/21 10/19/21 10/19/21 Range/Units 21:50 21:50 21:50 WBC 8.5 (3.8-10.6) k/uL RBC 5.01 (4.30-5.90) m/uL Hgb 14.9 (13.0-17.5) gm/dL Hct 44.3 (39.0-53.0) % MCV 88.6 (80.0-100.0) fL MCH 29.8 (25.0-35.0) pg MCHC 33.7 (31.0-37.0) g/dL RDW 12.6 (11.5-15.5) % Plt Count 146 L (150-450) k/uL MPV 7.5 Neutrophils % 68 % Lymphocytes % 18 % Monocytes % 9 % Eosinophils % 2 % Basophils % 1 % Neutrophils # 5.8 (1.3-7.7) k/uL Lymphocytes # 1.5 (1.0-4.8) k/uL Monocytes # 0.7 (0-1.0) k/uL Eosinophils # 0.1 (0-0.7) k/uL Basophils # 0.1 (0-0.2) k/uL PT (9.0-12.0) sec INR (<1.2) APTT (22.0-30.0) sec Sodium 137 (137-145) mmol/L Potassium 4.8 (3.5-5.1) mmol/L Chloride 105 (98-107) mmol/L Carbon Dioxide 23 (22-30) mmol/L Anion Gap 9 mmol/L BUN 23 H (9-20) mg/dL Creatinine 1.02 (0.66-1.25) mg/dL Est GFR (CKD-EPI)AfAm >90 (>60 ml/min/1.73 sqM) Est GFR (CKD-EPI)NonAf 87 (>60 ml/min/1.73 sqM) Glucose 107 H (74-99) mg/dL Plasma Lactic Acid Gerard 1.6 (0.7-2.0) mmol/L Calcium 9.1 (8.4-10.2) mg/dL Magnesium 1.7 (1.6-2.3) mg/dL Total Bilirubin 1.0 (0.2-1.3) mg/dL AST 40 (17-59) U/L ALT 35 (4-49) U/L Alkaline Phosphatase 100 (38-126) U/L Troponin I (0.000-0.034) ng/mL NT-Pro-B Natriuret Pep pg/mL Total Protein 7.6 (6.3-8.2) g/dL Albumin 4.1 (3.5-5.0) g/dL 10/19/21 10/19/21 10/19/21 Range/Units 21:50 21:50 23:53 WBC (3.8-10.6) k/uL RBC (4.30-5.90) m/uL Hgb (13.0-17.5) gm/dL Hct (39.0-53.0) % MCV (80.0-100.0) fL MCH (25.0-35.0) pg MCHC (31.0-37.0) g/dL RDW (11.5-15.5) % Plt Count (150-450) k/uL MPV Neutrophils % % Lymphocytes % % Monocytes % % Eosinophils % % Basophils % % Neutrophils # (1.3-7.7) k/uL Lymphocytes # (1.0-4.8) k/uL Monocytes # (0-1.0) k/uL Eosinophils # (0-0.7) k/uL Basophils # (0-0.2) k/uL PT 12.9 H (9.0-12.0) sec INR 1.2 H (<1.2) APTT 27.2 (22.0-30.0) sec Sodium (137-145) mmol/L Potassium (3.5-5.1) mmol/L Chloride (98-107) mmol/L Carbon Dioxide (22-30) mmol/L Anion Gap mmol/L BUN (9-20) mg/dL Creatinine (0.66-1.25) mg/dL Est GFR (CKD-EPI)AfAm (>60 ml/min/1.73 sqM) Est GFR (CKD-EPI)NonAf (>60 ml/min/1.73 sqM) Glucose (74-99) mg/dL Plasma Lactic Acid Gerard (0.7-2.0) mmol/L Calcium (8.4-10.2) mg/dL Magnesium (1.6-2.3) mg/dL Total Bilirubin (0.2-1.3) mg/dL AST (17-59) U/L ALT (4-49) U/L Alkaline Phosphatase (38-126) U/L Troponin I <0.012 (0.000-0.034) ng/mL NT-Pro-B Natriuret Pep 681 pg/mL Total Protein (6.3-8.2) g/dL Albumin (3.5-5.0) g/dL 10/20/21 10/20/21 Range/Units 02:36 05:46 WBC (3.8-10.6) k/uL RBC (4.30-5.90) m/uL Hgb (13.0-17.5) gm/dL Hct (39.0-53.0) % MCV (80.0-100.0) fL MCH (25.0-35.0) pg MCHC (31.0-37.0) g/dL RDW (11.5-15.5) % Plt Count (150-450) k/uL MPV Neutrophils % % Lymphocytes % % Monocytes % % Eosinophils % % Basophils % % Neutrophils # (1.3-7.7) k/uL Lymphocytes # (1.0-4.8) k/uL Monocytes # (0-1.0) k/uL Eosinophils # (0-0.7) k/uL Basophils # (0-0.2) k/uL PT (9.0-12.0) sec INR (<1.2) APTT (22.0-30.0) sec Sodium (137-145) mmol/L Potassium (3.5-5.1) mmol/L Chloride (98-107) mmol/L Carbon Dioxide (22-30) mmol/L Anion Gap mmol/L BUN (9-20) mg/dL Creatinine (0.66-1.25) mg/dL Est GFR (CKD-EPI)AfAm (>60 ml/min/1.73 sqM) Est GFR (CKD-EPI)NonAf (>60 ml/min/1.73 sqM) Glucose (74-99) mg/dL Plasma Lactic Acid Gerard (0.7-2.0) mmol/L Calcium (8.4-10.2) mg/dL Magnesium (1.6-2.3) mg/dL Total Bilirubin (0.2-1.3) mg/dL AST (17-59) U/L ALT (4-49) U/L Alkaline Phosphatase (38-126) U/L Troponin I <0.012 <0.012 (0.000-0.034) ng/mL NT-Pro-B Natriuret Pep pg/mL Total Protein (6.3-8.2) g/dL Albumin (3.5-5.0) g/dL Coagulation 10/19/21 Range/Units 23:53 PT 12.9 H (9.0-12.0) sec APTT 27.2 (22.0-30.0) sec CBC 10/19/21 Range/Units 21:50 WBC 8.5 (3.8-10.6) k/uL RBC 5.01 (4.30-5.90) m/uL Hgb 14.9 (13.0-17.5) gm/dL Hct 44.3 (39.0-53.0) % Plt Count 146 L (150-450) k/uL Comprehensive Metabolic Panel 10/19/21 Range/Units 21:50 Sodium 137 (137-145) mmol/L Potassium 4.8 (3.5-5.1) mmol/L Chloride 105 (98-107) mmol/L Carbon Dioxide 23 (22-30) mmol/L BUN 23 H (9-20) mg/dL Creatinine 1.02 (0.66-1.25) mg/dL Glucose 107 H (74-99) mg/dL Calcium 9.1 (8.4-10.2) mg/dL AST 40 (17-59) U/L ALT 35 (4-49) U/L Alkaline Phosphatase 100 (38-126) U/L Total Protein 7.6 (6.3-8.2) g/dL Albumin 4.1 (3.5-5.0) g/dL Current Medications Generic Name Dose Route Start Last Admin Trade Name Freq PRN Reason Stop Dose Admin Atorvastatin Calcium 20 mg 10/20/21 21:00 Atorvastatin 20 Mg Tab PO HS MARITA Diltiazem HCl 125 mg/ Sodium 125 mls @ 5 mls/hr 10/19/21 22:15 10/19/21 22:14 Chloride IV 5 mg/hr .Q24H MARITA 5 mls/hr Administration 5 MG/HR Sodium Chloride 1,000 mls @ 75 mls/hr 10/19/21 21:50 10/20/21 06:55 Saline 0.9% IV 10/20/21 11:09 75 mls/hr .[id number] STA Administration Levofloxacin 750 mg/ IV 150 mls @ 100 mls/hr 10/20/21 22:00 Solution IVPB Q24H MARITA Protocol Sodium Chloride 1,000 mls @ 130 mls/hr 10/20/21 00:30 10/20/21 08:10 Saline 0.9% IV Not Given .[id number] MARITA Lisinopril 10 mg 10/20/21 09:00 10/20/21 08:29 Lisinopril 10 Mg Tab PO 10 mg DAILY MARITA Administration Metoprolol Succinate 25 mg 10/20/21 09:00 10/20/21 08:29 Metoprolol Succinate (Er) 25 Mg Tab.Er.24h PO 25 mg BID MARITA Administration Morphine Sulfate 4 mg 10/20/21 00:22 Morphine Sulfate 4 Mg/Ml Syringe IV Q4HR PRN Severe Pain Naloxone HCl 0.2 mg 10/20/21 00:22 Naloxone 0.4 Mg/Ml 1 Ml Vial IV Q2M PRN Opioid Reversal Ondansetron HCl 4 mg 10/20/21 00:22 Ondansetron 4 Mg/2 Ml Vial IVP Q8HR PRN Nausea And Vomiting Rivaroxaban 20 mg 10/20/21 09:00 10/20/21 08:29 Rivaroxaban 20 Mg Tab PO 20 mg DAILY MARITA Administration Protocol Intake and Output 10/19/21 10/20/21 10/20/21 22:59 06:59 14:59 Other: Weight 167.829 kg 167.829 kg Patient Weight 10/21/21 06:59 Weight 167.829 kg 10/19/21 21:50 10/19/21 21:50
[2021-10-20] MEDS ORDERED: guaiFENesin-DM 100-10MG/5ML 10 ML CUP PO PRN (17:31)
[2021-10-20] MEDS: ATORVASTATIN 20 MG TAB PO SCH (21:45)
[2021-10-20] MEDS: METOPROLOL SUCCINATE (ER) 50 MG TAB.ER.24H PO SCH (21:45)
[2021-10-20] MEDS ORDERED: LEVOFLOXACIN 750MG-D5W PMX 750 MG in DEXTROSE/WATER 1 150ML.BAG IVPB SCH (22:00)
--- NOTE | 2021-10-20 23:48 | P.CONS ---
History of Present Illness - Reason for Consult Consult date: 10/20/21 Cellulitis Requesting physician: Mckinley E Sheet - Chief Complaint Left leg swelling and redness x one day - History of Present Illness Patient is a 46-year-old male who was recently evaluated in the ER for high-grade fever about 2 days ago patient apparently was diagnosed with pneumonia and was discharged on doxycycline however the patient was unable to fill his prescription patient now presenting back to the hospital last night for evaluation of left lower extremity pain swelling redness that apparently started the day before presentation to the hospital patient denies having history of any trauma he did have diffuse swelling redness of the left leg and has been complaining of pain which is mostly sharp about 5-6 out of 10 and no radiation patient currently do not have any open wound or any blister and there is no drainage, patient on presentation to the hospital did have a low-grade fever of 99 degrees formulae at, patient did have a normal white count kidney function has been normal liver exams are normal troponin is a negative patient did have a chest x-ray mild atelectasis lung bases which is increased compared to the recent x-ray lower extremity Doppler was negative for DVT patient was started on Levaquin because of his cephalexin allergy infectious disease was consulted for further management of antibiotic therapy Review of Systems Positive point has been mentioned in the HPI rest of the systems are negative Past Medical History Past Medical History: Atrial Fibrillation, Blood Disorder, Deep Vein Thrombosis (DVT), GERD/Reflux, Sleep Apnea/CPAP/BIPAP Additional Past Medical History / Comment(s): Pt seen in ER 10/17/21 and diagnosed with pneumonia/fever. Other hx: Paroxysmal Afib, Factor V, DVT R leg, SEBASTIEN and pt states in the process of getting device, colitis. History of Any Multi-Drug Resistant Organisms: None Reported Past Surgical History: Bariatric Surgery, Cholecystectomy, Orthopedic Surgery Additional Past Surgical History / Comment(s): Gastric sleeve, post op abdominal abscess/abdomin washed out, panniculectomy, EGD, colonoscopy, cyst removed from upper back and tailbone, ORIF R ankle (hardware removed), R knee surgery for chip/fracture. Past Anesthesia/Blood Transfusion Reactions: Previous Problems w/ Anesthesia Additional Past Anesthesia/Blood Transfusion Reaction / Comm: STATES TAKES LONG TIME TO WAKE UP Smoking Status: Never smoker - Past Family History Father History Unknown: Yes Family Medical History: Congestive Heart Failure (CHF), Myocardial Infarction ([place]) Additional Family Medical History / Comment(s): SEVERAL OH'S. Mother Family Medical History: Skin Disorder Additional Family Medical History / Comment(s): Cellulitis Brother(s) History Unknown: Yes Family Medical History: AFIB, Deep Vein Thrombosis (DVT), Pulmonary Embolus Medications and Allergies Home Medications Medication Instructions Recorded Confirmed Type Diclofenac Sodium [Voltaren] 75 mg PO BID 10/30/19 10/19/21 History lisinopriL [Zestril] 10 mg PO DAILY 10/30/19 10/19/21 History Rivaroxaban [Xarelto] 20 mg PO DAILY 09/10/21 10/19/21 History Atorvastatin Calcium 20 mg PO HS 10/17/21 10/19/21 History Metoprolol Succinate [Metoprolol 25 mg PO BID 10/17/21 10/19/21 History Succinate ER] traZODone HCL 100 mg PO HS PRN 10/17/21 10/19/21 History Doxycycline Hyclate 100 mg PO DIRECTED 10/19/21 10/19/21 History Allergies Allergy/AdvReac Type Severity Reaction Status Date / Time cephalexin [From Keflex] AdvReac Rash/Hives Verified 10/19/21 23:52 Physical Exam Vitals: Vital Signs Temp Pulse Resp BP Pulse Ox 10/20/21 11:00 99 20 117/87 10/20/21 10:00 108 H 18 113/89 10/20/21 09:00 108 H 18 135/98 10/20/21 08:00 69 18 112/74 97 10/20/21 07:30 133 H 141/111 98 10/20/21 07:00 91 124/90 98 10/20/21 06:30 96 141/103 98 10/20/21 06:00 77 133/77 98 10/20/21 05:30 86 117/97 97 10/20/21 05:28 90 19 117/97 96 10/20/21 05:00 100 126/102 96 10/20/21 04:30 82 112/97 93 L 10/20/21 04:05 98 18 116/91 95 10/20/21 04:00 88 119/91 95 10/20/21 03:30 90 131/102 96 10/20/21 03:00 85 126/90 96 10/20/21 02:30 90 131/94 98 10/20/21 02:00 92 116/93 96 10/20/21 01:30 89 114/80 96 10/20/21 01:00 100 114/80 94 L 10/20/21 00:30 110 H 125/86 95 10/20/21 00:00 99 111/78 95 10/19/21 23:40 83 18 107/70 96 10/19/21 23:30 83 107/71 95 10/19/21 23:00 97 103/76 96 10/19/21 22:32 85 18 100/69 96 10/19/21 22:30 87 97/69 97 10/19/21 22:13 144 H 18 97/69 96 10/19/21 22:00 154 H 10/19/21 21:30 140 H 99/81 10/19/21 21:13 144 H 10/19/21 20:55 99 F 58 L 20 100/52 96 Intake and Output 10/19/21 10/20/21 10/20/21 22:59 06:59 14:59 Other: Weight 167.829 kg 167.829 kg GENERAL DESCRIPTION: Middle-aged male lying in bed, no distress. No tachypnea or accessory muscle of respiration use. HEENT: Shows Pallor , no scleral icterus. Oral mucous membrane is dry. No pharyngeal erythema or thrush NECK: Trachea central, no thyromegaly. LUNGS: Unlabored breathing. Clear to auscultation anteriorly. No wheeze or crackle. HEART: S1, S2, regular rate and rhythm. No loud murmur ABDOMEN: Soft, no tenderness , guarding or rigidity, no organomegaly EXTREMITIES: Left lower extremity swelling redness and warmth to touch SKIN: No rash, no masses palpable. NEUROLOGICAL: The patient is awake, alert, oriented x3, mood and affect normal. Results CBC & Chem 7: 10/19/21 21:50 10/19/21 21:50 Labs: Abnormal Lab Results - Last 24 Hours (Table) 10/19/21 10/19/21 10/19/21 Range/Units 21:50 21:50 23:53 Plt Count 146 L (150-450) k/uL PT 12.9 H (9.0-12.0) sec INR 1.2 H (<1.2) BUN 23 H (9-20) mg/dL Glucose 107 H (74-99) mg/dL Assessment and Plan (1) Left leg cellulitis Current Visit: Yes Status: Acute Code(s): L03.116 - CELLULITIS OF LEFT LOWER LIMB SNOMED Code(s): 108436801 Plan: 1patient in the hospital with fever and chills and left lower extremity cellulitis with diffuse swelling redness likely streptococcal disease, patient currently do not have any respiratory symptoms clinically not pneumonia. 2 Cephalexin allergy that would limit the number of antibiotics safe to use. 3discontinue Levaquin 4start the patient on clindamycin 900 every 8 hours 5Marked area of redness We will follow on clinical condition and cultures to further adjust medication if needed Thank you for this consultation will follow this patient along with you Time with Patient: Greater than 30
[2021-10-21] MEDS: CLINDAMYCIN 900 MG in DEXTROSE 5% IN WATER 50 ML IVPB SCH ×6 (01:29→16:33)
[2021-10-21] MEDS: SODIUM CHLORIDE 0.9% 1,000 ML IV SCH ×2 (06:51→20:44)
[2021-10-21] MEDS ORDERED: FAMOTIDINE 20 MG/2 ML VIAL IV SCH (09:00)
[2021-10-21] MEDS: METOPROLOL SUCCINATE (ER) 50 MG TAB.ER.24H PO SCH ×2 (09:12→20:47)
[2021-10-21] MEDS: lisinopriL 10 MG TAB PO SCH (09:12)
[2021-10-21] MEDS: RIVAROXABAN 20 MG TAB PO SCH (09:13)
[2021-10-21 09:28] LABS: ALT 25 U/L (4-49); AST 26 U/L (17-59); African American GFR (CKD) >90 (>60 ml/min/1.73 sqM); Albumin 3.2 g/dL (3.5-5.0); Alkaline Phosphatase 86 U/L (38-126); Anion Gap 9 mmol/L; Blood Urea Nitrogen 12 mg/dL (9-20); Calcium 8.4 mg/dL (8.4-10.2); Carbon Dioxide 22 mmol/L (22-30); Chloride 109 mmol/L (98-107); Glucose 99 mg/dL (74-99); Non-African American GFR(CKD) >90 (>60 ml/min/1.73 sqM); Potassium 3.9 mmol/L (3.5-5.1); Sodium 140 mmol/L (137-145); Total Bilirubin 0.3 mg/dL (0.2-1.3); Total Protein 6.2 g/dL (6.3-8.2)
[2021-10-21 09:43] LABS: Basophils % (A) 0 %; Eosinophils # (A) 0.2 k/uL (0-0.7); Eosinophils % (A) 3 %; HCT 38.5 % (39.0-53.0); HGB 12.7 gm/dL (13.0-17.5); Lymphocytes % (A) 34 %; MCH 29.9 pg (25.0-35.0); MCHC 33.1 g/dL (31.0-37.0); MCV 90.2 fL (80.0-100.0); Mean Platelet Volume 7.8; Monocytes # (A) 0.4 k/uL (0-1.0); Monocytes % (A) 7 %; Neutrophils # (A) 3.1 k/uL (1.3-7.7); Neutrophils % (A) 53 %; Platelet Count 195 k/uL (150-450); RBC 4.27 m/uL (4.30-5.90); RDW 12.6 % (11.5-15.5); WBC 5.9 k/uL (3.8-10.6)
--- NOTE | 2021-10-21 10:35 | CA ---
Transthoracic Echo Report Name: Lang Lozoya Age: 46 Gender: M : 1975 Exam Date: 10/20/2021 13:26 Exam Location: [facility] Ht (in): 72 Wt (lb): 370 Ordering Physician: Braulio Dc DO ([id number]) Attending/Referring Phys: Foreclosure Clerk India Danielson RDCS Procedure CPT: Indications: re: LV function Cardiac Hx: Technical Quality: Contrast 1: Total Dose (mL): Contrast 2: Total Dose (mL): MEASUREMENTS (Male / Female) Normal Values 2D ECHO LV Diastolic Diameter PLAX 4.6 cm 4.2 - 5.9 / 3.9 - 5.3 cm LV Systolic Diameter PLAX 3.8 cm IVS Diastolic Thickness 1.2 cm 0.6 - 1.0 / 0.6 - 0.9 cm LVPW Diastolic Thickness 1.7 cm 0.6 - 1.0 / 0.6 - 0.9 cm LV Relative Wall Thickness 0.6 RV Internal Dim ED PLAX 2.8 cm M-MODE Aortic Root Diameter MM 3.5 cm LA Systolic Diameter MM 2.9 cm LA Ao Ratio MM 0.8 AV Cusp Separation MM 2.4 cm FINDINGS Left Ventricle Normal left ventricular size, wall thickness, systolic function with no obvious regional wall motion abnormalities. The ejection fraction is visually estimated at 50-55 %. Right Ventricle The right ventricle is normal in size and function. Right Atrium The right atrium is normal in size. Left Atrium The left atrium is normal in size. Mitral Valve Structurally normal mitral valve without significant stenosis or prolapse. There is mild mitral regurgitation. Aortic Valve Structurally normal aortic valve without significant sclerosis or stenosis. There is no aortic regurgitation. Tricuspid Valve Structurally normal tricuspid valve without significant stenosis. Pulmonary artery systolic pressure is normal. Pulmonic Valve Structurally normal pulmonic valve without significant stenosis. There is no pulmonic regurgitation. Pericardium Normal pericardium without effusion. Aorta Normal aortic root dimension. CONCLUSIONS Normal left ventricular dimension and systolic function Previewed by: Dr. Jamel Salomon MD (Electronically Signed) Final Date: 21 October 2021 10:34
[2021-10-21] MEDS: DILTIAZEM 125 MG in SODIUM CHLORIDE 0.9% 100 ML IV SCH (11:26)
--- NOTE | 2021-10-21 18:22 | P.PN ---
Subjective This is a pleasant 46 years old male with past medical history of atrial Fibrillation on xarelto, GERD/Reflux, Sleep Apnea/CPAP/BIPAP, Presents because of chest pain or dyspnea of one-day duration. Patient says that the chest pain was central, nonradiating about 70/10 but iscompletely resolved. Also his breathing difficulty resolved. No coughing. Also he noticed swelling and redness in his left leg started to yesterday. He denies diarrhea vomiting or abdominal pain. No urinary complaints, no weakness or numbness or vertigo symptoms. Patient states that he is ALLERGIC to Keflex causes a rash Vitals are stable, blood pressure was on the low side on admission with tachycardia but currently is 170/97 and heart rate 90. Afebrile on admission. Labs including CBC, INR, BMP and liver enzymes are unremarkable. Troponin 3 are negative a 0.012 and proBNP 681. Chest x-ray: No acute process. Mild atelectasis in the lung bases which increas ed compared to recent exam. No heart failure. Poor inspiration. EKG: Atrial fibrillation with RVR at 129 Left leg venous Doppler: No acute DVT On admission patient has since normal saline him a Cardizem drip and Levaquin 10/21/2021 His heart rate is controlled, is on metoprolol 50 mg twice a day. His left leg cellulitis while he is on clindamycin 900 mg. Other tests showing normal ejection fraction 50-55%. Patient was still a Cardizem drip in the morning rounds. Also he is on Xarelto normal saline 1 L/h. Blood pressure 96/66. Objective - Vital Signs Vital signs: Vital Signs Temp 98.0 F 10/21/21 03:51 Pulse 89 10/21/21 03:51 Resp 17 10/21/21 08:00 BP 113/84 10/21/21 03:51 Pulse Ox 98 10/21/21 03:51 FiO2 Intake & Output 10/20/21 10/21/21 10/21/21 18:59 06:59 18:59 Intake Total 118 Output Total 250 Balance 118 -250 Weight 167.829 kg Intake: Oral 118 Output: Urine 250 Other: Voiding Method Toilet Toilet # Voids 1 - Exam GENERAL: The patient is alert and oriented x3, not in any acute distress. Well developed, well nourished. HEENT: Pupils are round and equally reacting to light. EOMI. No scleral icterus. No conjunctival pallor. Normocephalic, atraumatic. No pharyngeal erythema. No thyromegaly. CARDIOVASCULAR: S1 and S2 present. No murmurs, rubs, or gallops. PULMONARY: Chest is clear to auscultation, no wheezing or crackles. ABDOMEN: Soft, nontender, nondistended, normoactive bowel sounds. No palpable organomegaly. MUSCULOSKELETAL: No joint swelling or deformity. -EXTREMITIES: No cyanosis, clubbing, or pedal edema. Improving left leg cellulitis NEUROLOGICAL: Gross neurological examination did not reveal any focal deficits. SKIN: No rashes. no petechiae. - Labs CBC & Chem 7: 10/21/21 07:31 10/21/21 07:31 Labs: Abnormal Lab Results - Last 24 Hours (Table) 10/21/21 10/21/21 Range/Units 07:31 07:31 RBC 4.27 L (4.30-5.90) m/uL Hgb 12.7 L (13.0-17.5) gm/dL Hct 38.5 L (39.0-53.0) % Chloride 109 H (98-107) mmol/L Total Protein 6.2 L (6.3-8.2) g/dL Albumin 3.2 L (3.5-5.0) g/dL Assessment and Plan Assessment: Atrial fibrillation with RVR on admission on Xarelto Acute Left leg cellulitis History of GERD History of sleep apnea Obesity with BMI of 46.2 Plan: This is a pleasant 46 his old male who presents with A. fib and RVR and left leg cellulitis Continue with clindamycin Infectious disease team consult Continue with Cardizem and switch to oral medication when more suitable. Continue on metoprolol Continue with Xarelto Cardiology consult Labs and medication were reviewed.. Continue same treatment. Continue with symptomatic treatment. Resume home medication. Monitor lytes and vitals. DVT and GI prophylaxis. Further recommendations depends on the clinical course of the patient DVT prophylaxis: Xarelto GI Prophylaxis: Pepcid Prognosis is guarded
[2021-10-21] MEDS: ATORVASTATIN 20 MG TAB PO SCH (20:47)
[2021-10-21] MEDS: FAMOTIDINE 20 MG TAB PO SCH (20:47)
[2021-10-22] MEDS: CLINDAMYCIN 900 MG in DEXTROSE 5% IN WATER 50 ML IVPB SCH ×4 (00:10→08:22)
[2021-10-22] MEDS: SODIUM CHLORIDE 0.9% 1,000 ML IV SCH (06:10)
--- NOTE | 2021-10-22 07:39 | P.PN ---
Subjective Progress Note Date: 10/21/21 Principal diagnosis: Left lower extremity cellulitis Patient is a 46-year-old male presented to hospital with left lower extremity swelling redness fever and chills has been diagnosed with left lower extremity cellulitis in this patient who did have Keflex ALLERGY. On today's evaluation of the 10/22/2019, the patient denies having any fever or any chills, the patient is breathing comfortably no chest pain no shortness of breath or cough no abdominal pain left leg swelling and redness is slightly decreased no further wound or any drainage Objective - Vital Signs Vital signs: Vital Signs Temp 98.0 F 10/21/21 03:51 Pulse 89 10/21/21 03:51 Resp 17 10/21/21 08:00 BP 113/84 10/21/21 03:51 Pulse Ox 98 10/21/21 03:51 FiO2 Intake & Output 10/20/21 10/21/21 10/21/21 18:59 06:59 18:59 Intake Total 118 Output Total 250 Balance 118 -250 Weight 167.829 kg Intake: Oral 118 Output: Urine 250 Other: Voiding Method Toilet Toilet # Voids 1 - Exam GENERAL DESCRIPTION: Middle-age male lying in bed in no distress RESPIRATORY SYSTEM: Unlabored breathing , decreased breath sounds at bases HEART: S1 S2 regular rate and rhythm , ABDOMEN: Soft , no tenderness EXTREMITIES: Left leg redness slightly decreased - Labs CBC & Chem 7: 10/21/21 07:31 10/21/21 07:31 Labs: Abnormal Lab Results - Last 24 Hours (Table) 10/21/21 10/21/21 Range/Units 07:31 07:31 RBC 4.27 L (4.30-5.90) m/uL Hgb 12.7 L (13.0-17.5) gm/dL Hct 38.5 L (39.0-53.0) % Chloride 109 H (98-107) mmol/L Total Protein 6.2 L (6.3-8.2) g/dL Albumin 3.2 L (3.5-5.0) g/dL Assessment and Plan (1) Left leg cellulitis Current Visit: Yes Status: Acute Code(s): L03.116 - CELLULITIS OF LEFT LOWER LIMB SNOMED Code(s): 395004068 Plan: 1patient in the hospital with fever and chills and left lower extremity cellulitis with diffuse swelling redness likely streptococcal disease, patient currently do not have any respiratory symptoms clinically not pneumonia. 2 Cephalexin allergy that would limit the number of antibiotics safe to use. 3patient to continue with clindamycin 900 every 8 hours 4Marked area of redness and Sivakumar wrap to the left leg from just above the toe to below the knee Time with Patient: Less than 30
[2021-10-22] MEDS: METOPROLOL SUCCINATE (ER) 50 MG TAB.ER.24H PO SCH (08:22)
[2021-10-22] MEDS: FAMOTIDINE 20 MG TAB PO SCH (08:22)
[2021-10-22] MEDS: lisinopriL 10 MG TAB PO SCH (08:22)
[2021-10-22] MEDS: RIVAROXABAN 20 MG TAB PO SCH (08:22)
[2021-10-22 11:53] VITALS: BP 135/90; PULSE 104; RESP 18; TEMP 97.8
--- NOTE | 2021-10-22 13:50 | P.PN ---
Subjective Patient is a pleasant 46-year-old male with history of persistent atrial fibrillation, GERD, obstructive sleep apnea noncompliant with CPAP, hyperten francisco, hyperlipidemia. He states that initially on 10/17 he developed onset of shortness breath along with feeling nauseous and fever up to 103. He presented to ER and chest x-ray showed concern of pneumonia and was placed on antibiotics going home. Unfortunately was unable to start the antibiotics. He slept most of 10/18 and then tried to go to work on 10/19 however was feeling fatigued, somewhat short of breath and nauseous and therefore presented to ER. Additionally he started noticing increased swelling and erythema of the left lower extremity. He was found to be in A. fib with RVR and placed on Cardizem drip at 5. He did have recent event monitor and follows with Dr. Bolanos in the office. After event monitor he was taken off flecainide and increased on the metoprolol up to 25 mg twice a day. Normally he cannot really feel his heart racing that much and unsure if he is normally in A. fib or not. There have been prior discussions regarding possible EPIFANIO/CV however at the time that been in sinus rhythm as well as possible ablation however this had not been scheduled yet. EKG showed A. fib with RVR with heart rate 140 with normal axis and nonspecific T-wave inversions inferiorly and laterally. 10/22/2021 Patient seen and examined at bedside, no acute distress. Yesterday he converted to sinus mechanism with heart rates 48-60s. 2-3 second pauses noted. He went back into atrial fibrillation overnight. HR relatively controlled 80s-low 100s. Echocardiogram revealed an EF of 5055 percent, mild mitral regurgitation PHYSICAL EXAMINATION Vital signs reviewed. CONSTITUTIONAL: No apparent distress, obese HEENT: Head is normocephalic. Pupils are equal, round. Sclerae anicteric. Mucous membranes of the mouth are moist. No JVD. No carotid bruit. CHEST EXAMINATION: Lungs are clear to auscultation. No chest wall tenderness is noted on palpation or with deep breathing. HEART EXAMINATION: Regular rate and rhythm. S1, S2 heard. No murmurs, gallops or rub. ABDOMEN: Soft, nontender. Positive bowel sounds. EXTREMITIES: 2+ peripheral pulses, trace lower extremity edema and +LLE erythema consistent with cellulitis. NEUROLOGIC EXAMINATION: Patient is awake, alert and oriented x3. ASSESSMENT 1. Persistent atrial fibrillation with RVR 2. Dyspnea likely related to A. fib with RVR 3. Left lower extremity cellulitis 4. Sepsis with fever, chills, white blood cell count may be related to cellulitis versus other 5. Hypertension 6. Obstructive sleep apnea PLAN Patient's main presentation appears related to his sepsis with increased fatigue, nausea, fevers and chills. Source may be related to cellulitis however rule out other etiology. Continue supportive care. Infectious disease recommendations appreciated. Patient without any chest discomfort, EF 50-55%. Patient heart rates are relatively controlled on current medical therapy. Heart rates likely to also improve with improvement in infection Continue metoprolol to 50 mg twice a day Patient is stable from cardiology perspective. Recommend follow up outpatient with Dr. Bolanos. Discharge per primary. We will follow the patient as needed. Nurse practitioner note has been reviewed by physician. Signing provider agrees with the documented findings, assessment, and plan of care. Objective - Vital Signs Vital signs: Vital Signs Temp 97.8 F 10/22/21 11:51 Pulse 104 H 10/22/21 11:51 Resp 18 10/22/21 11:51 BP 135/90 10/22/21 11:51 Pulse Ox 97 10/22/21 11:51 FiO2 Intake & Output 10/21/21 10/22/21 10/22/21 18:59 06:59 18:59 Intake Total 480 790 Output Total 300 Balance 180 790 Intake: Oral 480 790 Output: Urine 300 Other: Voiding Method Toilet Toilet Toilet # Voids 1 - Labs CBC & Chem 7: 10/21/21 07:31 10/21/21 07:31
--- NOTE | 2021-10-22 13:59 | P.DS ---
Providers Date of admission: 10/20/21 00:22 Expected date of discharge: 10/22/21 Attending physician: Kirby Hayes Consults: 10/20/21 00:22 Consult Physician Routine Consulting Provider: Tony Bolanos Consult Reason/Comments: afibRVR Do you want consulting provider notified?: Yes 10/20/21 07:57 Consult Physician Routine Consulting Provider: Isela Rizvi Consult Reason/Comments: Leg cellulitis Do you want consulting provider notified?: Yes Primary care physician: Rodríguez Gutierrez [facility] Course: 46-year-old male who was recently evaluated in the ER for high-grade fever about 2 days ago patient apparently was diagnosed with pneumonia and was discharged on doxycycline however the patient was unable to fill his prescription patient now presenting back to the hospital last night for evaluation of left lower extremity pain swelling redness that apparently started the day before presentation to the hospital patient denies having history of any trauma he did have diffuse swelling redness of the left leg and has been complaining of pain which is mostly sharp about 5-6 out of 10 and no radiation patient currently do not have any open wound or any blister and there is no drainage, patient on presentation to the hospital did have a low-grade fever of 99 degrees formulae at, patient did have a normal white count kidney function has been normal liver exams are normal troponin is a negative patient did have a chest x-ray mild atelectasis lung bases which is increased compared to the recent x-ray lower extremity Doppler was negative for DVT patient was started on Levaquin because of his cephalexin allergy infectious disease was consulted for further management of antibiotic therapy Patient was found to be in A Fib w/RVR; cardiology recommended increasing Toprol; Patient's main presentation appears related to his sepsis with increased fatigue, nausea, fevers and chills. Source may be related to cellulitis however rule out other etiology. Continue supportive care. Infectious disease recommendations appreciated. Patient without any chest discomfort, EF 50-55%. Patient heart rates are relatively controlled on current medical therapy. Heart rates likely to also improve with improvement in infection Continue metoprolol to 50 mg twice a day Patient is stable from cardiology perspective. Recommend follow up outpatient with Dr. Bolanos. Discharge per primary. ID evaluated patient with following recommendations; 1patient in the hospital with fever and chills and left lower extremity cellulitis with diffuse swelling redness likely streptococcal disease, patient currently do not have any respiratory symptoms clinically not pneumonia. 2 Cephalexin allergy that would limit the number of antibiotics safe to use. 3discontinue Levaquin 4start the patient on clindamycin 900 every 8 hours 10/22/2021 patient being dc'ed hoe on oral Clinamycin per ID recs Patient Condition at Discharge: Good Plan - Discharge Summary Discharge Rx Participant: No New Discharge Prescriptions: New Clindamycin [Cleocin] 300 mg PO Q8H 7 Days #42 cap Nystatin 100,000Unit/gm Cream [Mycostatin Cream] 1 applic TOPICAL BID #30 gm Metoprolol Succinate (ER) [Toprol XL] 50 mg PO BID 30 Days #60 tab Continue Diclofenac Sodium [Voltaren] 75 mg PO BID lisinopriL [Zestril] 10 mg PO DAILY Rivaroxaban [Xarelto] 20 mg PO DAILY traZODone HCL 100 mg PO HS PRN PRN Reason: SLEEP Atorvastatin Calcium 20 mg PO HS Discontinued Metoprolol Succinate [Metoprolol Succinate ER] 25 mg PO BID Doxycycline Hyclate 100 mg PO DIRECTED Discharge Medication List Diclofenac Sodium [Voltaren] 75 mg PO BID 10/30/19 [History] lisinopriL [Zestril] 10 mg PO DAILY 10/30/19 [History] Rivaroxaban [Xarelto] 20 mg PO DAILY 09/10/21 [History] Atorvastatin Calcium 20 mg PO HS 10/17/21 [History] traZODone HCL 100 mg PO HS PRN 10/17/21 [History] Clindamycin [Cleocin] 300 mg PO Q8H 7 Days #42 cap 10/22/21 [Rx] Metoprolol Succinate (ER) [Toprol XL] 50 mg PO BID 30 Days #60 tab 10/22/21 [Rx] Nystatin 100,000Unit/gm Cream [Mycostatin Cream] 1 applic TOPICAL BID #30 gm 10/22/21 [Rx] Follow up Appointment(s)/Referral(s): Tony Bolanos MD [STAFF PHYSICIAN] - 1 Week Rodríguez Miranda III, MD [Primary Care Provider] - 1-2 days Isela Rizvi MD [STAFF PHYSICIAN] - 1 Week Discharge Disposition: HOME SELF-CARE
--- NOTE | 2021-10-26 10:10 | CDI ---
Documentation Clarification Form Date: 10/26/2021 09:41:00 AM From: Holly Estrada RN CCDS Admit Date: 10/20/2021 12:22:00 AM Patient Name: Lang Lozoya Visit Number: [id number] Discharge Date: 10/22/2021 05:47:00 PM ATTENTION: The Clinical Documentation Specialists (CDI) and [facility] Coding Staff appreciate your assistance in clarifying documentation. Please respond to the clarification below the line at the bottom and electronically sign. The CDI & [facility] Coding staff will review the response and follow-up if needed. Please note: Queries are made part of the Legal Health Record. If you have any questions, please contact the author of this message via ITS. Dr. Rachlele Mckeon Sepsis is documented 10/22, Discharge summary, which may lack sufficient clinical evidence/support in the medical record. Additional clarification is requested. History/Risk Factors: 46-year-old male presents to the ED for elevated heart rate chest pain, arm numbness and tingling leg and tingling left leg pain. Medical History: Diagnosed with pneumnia earlier in the week. Atrial fibrillation and GERD. 10/19, ED note. Clinical Indicators: Admitting diagnoses H&P 10/20: Atrial fibrillation with RVR on admission on Xarelto; Acute left leg cellulitis. VSS 10/19 20:55: B/P 100/52 HR 58 Temp 99 RR 20 SpO2 96% room air HR 10/19 21:13 144; 21:30 140 Temp: 10/20 98.3; 10/21 97.8; 10/22 97.8 LABS 10/19: Wbc 8.5; Neutrophils 5.8; BUN 23; Cr 1.02 Cardiology consult 10/20 and PN 10/21: Sepsis with fever chills Wbc count may be related to cellulitis vs other. Patient presented to the ED about two days ago for diagnosis of pneumonia and was unable to fill his prescription of doxycycline. ED Note 10/19: The patient denies having current fever . 46 male to the ED for multiple complaints, recent fever left lower extremity cellulitis and patient is in atrial fib with RVR. ID consult 10/22: patient in the hospital with fever and chills and left lower extremity cellulitis with diffuse swelling redness likely streptococcal disease, patient currently do not have any respiratory symptoms clinically not pneumonia. Treatment: ID assessment above 10/19 0.9NS 1L bolus x2 10/19 0.9NS 500cc bolus x 1 10/19 Levofloxacin IVPB X 1 10/20 Levofloxacin IVPB Q24H d/c 10/20 10/21 Clindamycin IVPB Q8HR Please clarify if Sepsis is a valid diagnosis? [ ] Yes, Sepsis is present as evidence by (additional clinical support): [ ] No, Sepsis is ruled out [ ] Other (please specify diagnosis) [ ] Unable to determine (Template Last Revised: June 2020) No, Sepsis is ruled out MTDD
--- NOTE | 2021-10-29 14:56 | P.PN ---
Subjective Progress Note Date: 10/22/21 Principal diagnosis: Left lower extremity cellulitis Patient is a 46-year-old male presented to hospital with left lower extremity swelling redness fever and chills has been diagnosed with left lower extremity cellulitis in this patient who did have Keflex ALLERGY. On today's evaluation of the 10/23/2019, the patient remains to be afebrile, the patient is breathing comfortably, the patient denies chest pain no shortness of breath or cough no abdominal pain, the patient left leg swelling and redness is slightly decreased no wound or any drainage Objective - Vital Signs Vital signs: Vital Signs Temp 97.8 F 10/22/21 11:51 Pulse 104 H 10/22/21 11:51 Resp 18 10/22/21 11:51 BP 135/90 10/22/21 11:51 Pulse Ox 97 10/22/21 11:51 FiO2 Intake & Output 10/21/21 10/22/21 10/22/21 18:59 06:59 18:59 Intake Total 480 790 Output Total 300 Balance 180 790 Intake: Oral 480 790 Output: Urine 300 Other: Voiding Method Toilet Toilet Toilet # Voids 1 - Exam GENERAL DESCRIPTION: Middle-age male lying in bed in no distress RESPIRATORY SYSTEM: Unlabored breathing , decreased breath sounds at bases HEART: S1 S2 regular rate and rhythm , ABDOMEN: Soft , no tenderness EXTREMITIES: Left leg redness slightly decreased - Labs CBC & Chem 7: 10/21/21 07:31 10/21/21 07:31 Assessment and Plan (1) Left leg cellulitis Status: Acute Code(s): L03.116 - CELLULITIS OF LEFT LOWER LIMB SNOMED Code(s): 519237790 Plan: 1patient in the hospital with fever and chills and left lower extremity cellulitis with diffuse swelling redness likely streptococcal disease, patient currently do not have any respiratory symptoms clinically not pneumonia. 2 Cephalexin allergy that would limit the number of antibiotics safe to use. 3patient has clinically improved with IV clindamycin will finish therapy with oral clindamycin 7 days and was the patient follow-up 4advised to continue with Sivakumar wrap to the left leg from just above the toe to below the knee to give the swelling down to keep the swelling down Time with Patient: Less than 30
== END 2021-10-22 17:47 | disposition home or self-care (01) | DRG 309 ==
LOC: EC 20:51 → 3SCARD 10-20 00:22
PROVIDERS: ADMIT Hospitalist; ATTEND Hospitalist
DX: I48.19 Other persistent atrial fibrillation (principal); D68.51 Activated protein C resistance; J98.11 Atelectasis; L03.116 Cellulitis of left lower limb; Z68.42 Body mass index [BMI] 45.0-49.9, adult; E66.9 Obesity, unspecified; E78.5 Hyperlipidemia, unspecified; F32.A Depression, unspecified; G47.33 Obstructive sleep apnea (adult) (pediatric); I10 Essential (primary) hypertension; Z87.01 Personal history of pneumonia (recurrent); Z79.01 Long term (current) use of anticoagulants; Z79.899 Other long term (current) drug therapy; Z82.49 Family history of ischemic heart disease and other diseases of the circulatory system; Z88.1 Allergy status to other antibiotic agents; Z91.19 Patient's noncompliance with other medical treatment and regimen; Z83.2 Family history of diseases of the blood and blood-forming organs and certain disorders involving the immune mechanism; Z84.0 Family history of diseases of the skin and subcutaneous tissue; Z98.84 Bariatric surgery status; Z86.718 Personal history of other venous thrombosis and embolism
CPT/HCPCS: 36415; 71045; 80053; 83605; 83735; 83880; 84484; 85025; 85610; 85730; 93005; 93306; 94760; 96365; 96366; 96368; 99285

== ENCOUNTER → 2021-11-04 | Outpatient (CLI) | payer BC ==
--- NOTE | 2021-11-04 12:21 | P.SLEEP ---
History of Present Illness DATE: 11/04/2021 CONSULTATION/NEW PATIENT EVALUATION HISTORY OF PRESENT ILLNESS/SLEEP-WAKE EVALUATION: 46 year old gentleman had b een evaluated in the sleep center for possible obstructive sleep apnea hypopnea syndrome.Patient has history of obstructive sleep apnea hypopnea syndrome diagnosed 7 years ago in another institution. She started to use CPAP equipment at that time but then stopped using it. She also significantly lost weight when about 200 pounds after getting bariatric surgery. SLEEP SCHEDULE: Usually sleep schedule on weekdayfrom midnight to 9 AM[], during days o the same sleep schedule from midnight to 99:30 AM[]. FALLING ASLEE Patient does have problems with falling asleep, highest TV set and bedroom.[] DURING SLEEPPatient snores and has episodes. Breathing during the sleep. He wakes up from sleep 3 times with nocturia. Usually she sleeps on the side position. Positive history of dry mouth during the sleep time. [] No history of hypnogogical hallucinations, sleep paralysis, or cataplexy. DURING THE DAY/WAKE STAT Patient worried about his sleep[]. [place] sleepiness scale increased to 11[ Usually patient doesn't take any naps.[]. PAST MEDICAL HISTOR Recently on atrial fibrillation, hypertension, factor V Leyden deficiency, hyper lipidemia.[] PAST SURGICAL HISTOR Bariatric surgery[] MEDICATION Lisinopril 10 mg once a day, Viviana L to 20 mg once a day, metoprolol 50 mg twice a day, atorvastatin 20 mg once a day, trazodone 100 mg at bedtime[] SOCIAL HISTOR Negative []for smoking, alcohol consumption occasional. FAMILY HISTORYStroke, heart problems, diabetes.[] REVIEW OF SYSTEM Loud snoring, multiple awakenings from sleep, sleepiness. []No fevers. No double vision. No recent chest pain. No shortness of breath. No abdominal pain. No bleeding episodes. No blood in urine. No seizure episodes. PHYSICAL EXAMINATION: GENERAL: A pleasant patient without any distress. VITAL SIGNS: 126/82] , RR16] , HR 65 , weig 376.2 ] pounds, heig 6 []fo 1 []inches, body mass ind 49.6] . HEENT: PERRLA, EOMI. Evaluation of oropharynx showed tongue protrudes midline, low position of soft palate [place] 4[]. NECK: Supple. No JVD. Thyroid is not palpabl 19-1/2 ] inches in circumference. LUNGS: Clear to percussion and to auscultation. Good air exchange. No wheezing or rhonchi. HEART: S1, S2 iregularly iregular. No murmurs, gallops or rubs. ABDOMEN: Soft and nontender. Bowel sounds are present. No organomegaly appreciated. EXTREMITIES: No clubbing or cyanosis. 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 Cranial nerves 2 to 7 intact. There is no fasciculation or atrophy noted. No focal deficits observed. ASSESSMENT: 1.History of obstructive sleep apnea in the past, since that time patient lost 200 pounds. Loud snoring, episodes stop breathing during the sleep, extremely low position of soft palate, wide neck 19-1/2 inches. Sleepiness [place] Sleepiness Scale increased to 11. Obstructive sleep apnea hypopnea syndrome.[]. 2. Obesity body mass index 49.6[]. 3. atrial fibrillation[]. 4. Hypertension[]. 5.factor V Leyden deficiency[]. 6. Hyperlipidemia[]. 7.Status post bariatric surgery[]. 8. Insomnia with difficulties to initiate sleep[]. PLAN: 1. Polysomnography for evaluation of patient's breathing during sleep. 2. CPAP/BiPAP titration if sleep study confirms obstructive sleep apnea- hypopnea syndrome. 3. Preferable position during sleep on the side. 4. No driving if patient feels any sleepiness. Patient is aware of civil and criminal liability for unsafe driving. 5. Sleep hygiene with regular sleep time for at least 7.5-8 hours. 6. Losing weight. Sincerely, Familia Santos MD, PhD, FAASM. 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 PANNICULECTOMY January 2016; Past Anesthesia/Blood Transfusion Reactions: Previous Problems w/ Anesthesia Additional Past Anesthesia/Blood Transfusion Reaction / Comment(s): STATES TAKES LONG TIME TO WAKE UP Past Psychological History: Depression Smoking Status: Never smoker Past Alcohol Use History: None Reported Past Drug Use History: None Reported - Past Family History Father History Unknown: Yes Family Medical History: Congestive Heart Failure (CHF), Myocardial Infarction (MS) Additional Family Medical History / Comment(s): SEVERAL MS'S. Mother Family Medical History: No Reported History Additional Family Medical History / Comment(s): HEALTHY Brother(s) History Unknown: Yes Family Medical History: Deep Vein Thrombosis (DVT), Pulmonary Embolus Medications and Allergies Home Medications Medication Instructions Recorded Confirmed Type Diclofenac Sodium [Voltaren] 75 mg PO BID 10/30/19 10/19/21 History lisinopriL [Zestril] 10 mg PO DAILY 10/30/19 10/19/21 History Rivaroxaban [Xarelto] 20 mg PO DAILY 09/10/21 10/19/21 History Atorvastatin Calcium 20 mg PO HS 10/17/21 10/19/21 History traZODone HCL 100 mg PO HS PRN 10/17/21 10/19/21 History Clindamycin [Cleocin] 300 mg PO Q8H 7 Days #42 cap 10/22/21 Rx Metoprolol Succinate (ER) [Toprol 50 mg PO BID 30 Days #60 tab 10/22/21 Rx XL] Nystatin 100,000Unit/gm Cream 1 applic TOPICAL BID #30 gm 10/22/21 Rx [Mycostatin Cream] Allergies Allergy/AdvReac Type Severity Reaction Status Date / Time cephalexin [From Keflex] AdvReac Rash/Hives Verified 10/19/21 23:52 Sleep Note - Sleep Note Sleep Note: Temperature: Pulse Rate: Respiratory Rate: Blood Pressure: SpO2: Height: Weight: BMI: Neck Circumference:
== END ==
LOC: SLEEP 11:21
PROVIDERS: ATTEND Internal Medicine
DX: G47.33 Obstructive sleep apnea (adult) (pediatric) (principal); E66.9 Obesity, unspecified; Z68.42 Body mass index [BMI] 45.0-49.9, adult; I48.91 Unspecified atrial fibrillation; I10 Essential (primary) hypertension; D68.4 Acquired coagulation factor deficiency; E78.5 Hyperlipidemia, unspecified; Z98.84 Bariatric surgery status; Z88.1 Allergy status to other antibiotic agents
CPT/HCPCS: 99211

== ENCOUNTER → 2021-12-16 | Outpatient (CLI) | payer BC ==
[2021-12-16 15:30] LABS: HGB 12.8 g/dL (13.0-17.0); MCH 28.8 pg (27.0-32.0); MCV 89.9 fL (80.0-97.0); Mean Platelet Volume 10.5 fL (9.5-12.2); NRBC Per 100 WBC 0 /100 WBCS (0.0-0.0); Platelet Count 192 X 10*3/uL (140-440); RBC 4.45 X 10*6/uL (4.40-5.60); RDW 13.1 % (11.5-14.5); WBC 7.98 X 10*3/uL (4.50-10.00)
[2021-12-16 16:15] LABS: African American GFR (CKD) 102.2 (60.0-200.0); Anion Gap 8.4 mmol/L (10.00-18.00); Blood Urea Nitrogen 19.2 mg/dL (9.0-27.0); Carbon Dioxide 26.7 mmol/L (20.0-27.5); Non-African American GFR(CKD) 88.2 (60.0-200.0); Potassium 4.2 mmol/L (3.5-5.5)
== END | disposition home or self-care (01) ==
LOC: LABPAT 08:42
PROVIDERS: ATTEND Internal Medicine Clinical Cardiac Electrophysiology
DX: Z01.812 Encounter for preprocedural laboratory examination (principal); I48.0 Paroxysmal atrial fibrillation
CPT/HCPCS: 80051; 82565; 84520; 85027

== ENCOUNTER 2021-12-28 09:51 | Day surgery (SDC) | payer BC ==
[2021-12-27 11:17] VITALS: BMI 46.2
[~2021-12-28 09:51] MED LIST changes: -LACTATED RINGERS 1,000 ML IV SCH; -LIDOCAINE 1% (10MG/ML) FOR IV START INTRADERMA PRN
[2021-12-28 11:06] LABS: Basophils # (A) 0.1 k/uL (0-0.2); Basophils % (A) 1 %; Eosinophils # (A) 0.2 k/uL (0-0.7); Eosinophils % (A) 2 %; HCT 46.1 % (39.0-53.0); HGB 14.6 gm/dL (13.0-17.5); Lymphocytes # (A) 3.7 k/uL (1.0-4.8); Lymphocytes % (A) 38 %; MCHC 31.8 g/dL (31.0-37.0); MCV 91.2 fL (80.0-100.0); Mean Platelet Volume 7.7; Monocytes # (A) 0.5 k/uL (0-1.0); Monocytes % (A) 5 %; Neutrophils # (A) 4.9 k/uL (1.3-7.7); Neutrophils % (A) 51 %; Platelet Count 204 k/uL (150-450); RBC 5.05 m/uL (4.30-5.90); WBC 9.5 k/uL (3.8-10.6)
[2021-12-28] MEDS ORDERED: HEPARIN SOD,PORK IN 0.45% NACL 25,000 UNIT in 0.45% NACL 1 250ML.BAG IV ONE (13:54)
[2021-12-28] MEDS ORDERED: LIDOCAINE 1% INJ 10MG/ML (30 ML VIAL-PF) SQ ONE (14:08)
[2021-12-28] MEDS ORDERED: LACTATED RINGERS 1,000 ML IV ONE (15:58)
[2021-12-28] MEDS ORDERED: IOPAMIDOL-370 100ML BTL INJ ONE (16:10)
--- NOTE | 2021-12-28 16:24 | P.EPPROC ---
- EP Procedure Note Electrophysiology Procedure Note: PROCEDURE Cryoablation /PVI A. fib ablation DIAGNOSIS Paroxysmal Atrial fibrillation, symptomatic, refractory to therapy. Failed Multaq and flecainide RVR RESULT No left atrial appendage mass seen on intracardiac echo. Normal LV function Successful A. fib ablation/pulmonary vein isolation of all veins using cryo- ablation Complex right inferior pulmonary vein and left superior pulmonary vein anatomy Complete entrance block in all 4 veins confirmed No evidence for phrenic nerve injury Esophageal deflection YES Electrical cardioversion with a synchronized shock across the chest YES PROCEDURE DETAILS Patient was brought to the EP lab in a fasting state after obtaining written i nformed consent. Procedure performed under general anesthesia Esophagus was intubated. Esophageal temperature monitoring with circa catheter. Esophageal deflection with an endoscope to avoid hypothermia of the esophagus. After initial muscle relaxant use, muscle relaxants were not given thereafter in order to assess phrenic nerve during procedure. Patient prepped and draped as per protocol Cryo ablation-set up with standard preparation of the cryoablation tools done. Femoral Venous access obtained on the right and left groins and sheaths placed Patient was in atrial fibrillation with RVR with a low blood pressure under general anesthesia and the for electrical cardioversion was performed to sinus rhythm to facilitate further management Diagnostic catheters for the high right atrium, phrenic nerve stimulation and pacing, His bundle, coronary sinus placed Intracardiac echo catheter placed. Long sheath placed in the right atrium Left and right transseptal catheterization performed under intracardiac echo guidance. Intravenous heparin with aCT above 300 Later, catheter positioning and balloon positioning in the left atrium and pulmonary veins, under intracardiac echo guidance Diagnostic EP study with coronary sinus pacing and recording Baseline measurements: SC interval 133 ms, QRS 95, QT 420 ms AH 56 and HV 50 ms Sinus node recovery times at 605 100 ms were 1117 and 1027 ms. Corresponding currently sinus recovery times normal Pacing the left atrial appendage at the end of the procedure resulted in rapid atrial tachycardia with RVR requiring electrical cardioversion the second time Transseptal catheterization performed RA pressure 22/18/20 LA pressure 58/18/23 Transseptal catheterization performed with standard sheath. The cryoablation sheath was then placed with an over the wire exchange without any acute complications. The cryoablation balloon was placed in the office of each pulmonary vein and all 4 pulmonary veins were isolated. IV dye was injected to confirm occlusion. Goal: achieve complete occlusion of the pulmonary vein, achieve -30 degrees C at 30 seconds and achieve -40 degrees C at 60 seconds and a time to effect of less than 60 seconds. If not, the balloon was repositioned to obtain this result After completion of Cryoblation with durations from 180-240 seconds, entrance block was confirmed with the Attain circular catheter in a roving fashion around the antrum of the pulmonary veins Phrenic nerve pacing was performed from the SVC, right innominate vein area and diaphragm voltage was monitored. Diaphragmatic contractions were also monitored manually for strength of contraction. At the end of the procedure the Achieve catheter was once again used to check for entrance block Phrenic nerve stimulation was performed to confirm diaphragmatic stimulation the end of the procedure Cine fluoroscopy was performed at the very end of the procedure to confirm movement of both diaphragms with inspiration and expiration This is a, procedure than usual The right inferior pulmonary vein had at least 4 tributaries which are fairly large multiple Cryoblation's performed selecting individual tributaries separately Carinal ablation was performed on the right side The left superior pulmonary vein also had 2 very large tributaries, both of which were individually isolated The right superior pulmonary vein also had 2 large tributaries which are also individually isolated The left inferior pulmonary vein required a single 4 minute carinal lesion At the end of the procedure the patient was extubated Venous sheaths were removed and hemostasis assured with a closure device PROCEDURES PERFORMED Diagnostic EP study CS pacing and recording Left and right transseptal catheterization Catheter the mapping of the tachycardia Intracardiac echocardiography Pulmonary vein isolation with transseptal and comprehensive EPS, 57937 Electrical cardioversion with a synchronized shock across the chest [id number] Increase procedural service
[2021-12-28] MEDS ORDERED: ACETAMINOPHEN TAB 325 MG TAB PO PRN (16:28)
[2021-12-28] MEDS ORDERED: ACETAMINOPHEN IV (For NPO) 1,000 MG in EMPTY BAG 1 BAG IVPB ONE (17:00)
[2021-12-28] MEDS ORDERED: ATORVASTATIN 20 MG TAB PO SCH (21:00)
[2021-12-28] MEDS: ETODOLAC 400 MG TAB PO SCH (21:42)
[2021-12-28] MEDS: METOPROLOL SUCCINATE (ER) 50 MG TAB.ER.24H PO SCH (21:43)
[2021-12-29 03:36] VITALS: TEMP 98.3
[2021-12-29 07:40] VITALS: BP 127/80; PULSE 77; RESP 17
[2021-12-29] MEDS ORDERED: lisinopriL 10 MG TAB PO SCH (09:00)
[2021-12-29] MEDS ORDERED: RIVAROXABAN 20 MG TAB PO SCH (09:00)
[2021-12-29] MEDS: ETODOLAC 400 MG TAB PO SCH (09:12)
[2021-12-29] MEDS: METOPROLOL SUCCINATE (ER) 50 MG TAB.ER.24H PO SCH (09:13)
--- NOTE | 2021-12-29 11:22 | P.DS ---
Providers Attending physician: Tony Bolanos Primary care physician: [facility] Hospital Course: This is an 46 year old male who underwent atrial fibrillation ablation with Dr. Bolanos. the patient is doing well postprocedure. He denies chest pain or pressure. Denies shortness of breath. Vital signs are stable. Per Dr. Bolanos, the patient is stable for discharge home today. Please see EMR for further hospital course details. Discharge Diagnosis 1. paroxysmal atrial fibrillation, s/p ablation Nurse practitioner note has been reviewed by physician. Signing provider agrees with the documented findings, assessment, and plan of care. Plan - Discharge Summary Discharge Rx Participant: Yes New Discharge Prescriptions: Continue Diclofenac Sodium [Voltaren] 75 mg PO BID lisinopriL [Zestril] 10 mg PO DAILY Rivaroxaban [Xarelto] 20 mg PO DAILY traZODone HCL 100 mg PO HS PRN PRN Reason: SLEEP Metoprolol Succinate (ER) [Toprol XL] 50 mg PO BID 30 Days #60 tab Nystatin 100,000Unit/gm Cream [Mycostatin Cream] 1 applic TOPICAL BID PRN PRN Reason: rash between toes Atorvastatin Calcium 20 mg PO HS Discharge Medication List Diclofenac Sodium [Voltaren] 75 mg PO BID 10/30/19 [History] lisinopriL [Zestril] 10 mg PO DAILY 10/30/19 [History] Rivaroxaban [Xarelto] 20 mg PO DAILY 09/10/21 [History] Atorvastatin Calcium 20 mg PO HS 10/17/21 [History] traZODone HCL 100 mg PO HS PRN 10/17/21 [History] Metoprolol Succinate (ER) [Toprol XL] 50 mg PO BID 30 Days #60 tab 10/22/21 [Rx] Nystatin 100,000Unit/gm Cream [Mycostatin Cream] 1 applic TOPICAL BID PRN 12/27/21 [History] Follow up Appointment(s)/Referral(s): Tony Bolanos MD [STAFF PHYSICIAN] - 01/14/22 3:45 pm (Appointment made at the [address] office) Patient Instructions/Handouts: Cardiac Ablation (DC) Activity/Diet/Wound Care/Special Instructions: Post EP study - Ablation instructions 1. Keep access sites dry for 2 days. 2. No heavy lifting or straining for 2 days. 3. Avoid bending the hips repeatedly for 2 days. 4. You may go up and down stairs slowly Call if the following is noted 1. Bleeding, increasing swelling or pain at the access sites. 2. Increasing chest discomfort, especially upon taking a deep breath. 3. Increasing shortness of breath, at rest or with exertion. 4. Undue cough / phlegm 5. Difficulty or pain while swallowing. 6. Pain or change in color in the extremities. 7. Fever, chills, rigors. 8. Increasing headache or neurologic symptoms. 9. Dizziness, fainting, palpitations Continue cardiac medications Do not stop Xarelto Discharge Disposition: HOME SELF-CARE
== END 2021-12-29 12:28 | disposition home or self-care (01) ==
LOC: CATHEP 09:51 → 6NMEDSUR 16:10 → CATHEP 12-29 12:28
PROVIDERS: ATTEND Internal Medicine Clinical Cardiac Electrophysiology
DX: I48.0 Paroxysmal atrial fibrillation (principal); I10 Essential (primary) hypertension; D68.51 Activated protein C resistance; Z79.01 Long term (current) use of anticoagulants; Z79.899 Other long term (current) drug therapy
CPT/HCPCS: 92960; 93656; 85025; 87635; J2001; J0131; Q9967; J1644

== ENCOUNTER → 2022-03-17 | Outpatient (CLI) | payer BC ==
--- NOTE | 2022-03-17 11:34 | P.PN ---
Subjective DATE: 03/17/2022 FOLLOW UP VISIT. Patient with obstructive sleep apnea hypopnea syndrome return to sleep center for follow-up visit. Recently patient had sleep study which documented obstructive sleep apnea hypopnea syndrome. Patient was initiated on PAP therapy and today is first visit after treatment was started. I explained patient results of sleep studies in details. Patient was able to use PAP equipment every night for the whole night. The patient does not have significant problems with the mask, PAP pressure and humidification. [place] sleepiness scale is 4, which is normal. Patient feels better after starting treatment with CPAP with relationship to his sleep quality and feeling during the day. I checked information from PAP unit. PAP unit pressure 6-13, average 11.9 cm H2O. Usage is 90% and 83 % for more then 4 hours, average 7.5 hours per night. Leak is 1.2 l/m, which is great. Apnea Hypopnea Index is 2.4, which is normal. MEDICATIONS:1. Lisinopril 10 mg once a day 2. Metoprolol 50 mg twice a day 3. Atorvastatin 20 mg once a day 4. Trazodone 100 mg at bedtime 5. Xarelto 20 mg once a day During physical exam: GENERAL: A pleasant patient without any distress. VITAL SIGNS: BP 146/91, HR 70, RR 16 , weight 392, temperature 98.3, oxygen saturation at room air 99% . HEENT: PERRLA, EOMI.low position of soft palate, [place] 4 . NECK: Supple. No JVD. LUNGS: Clear to percussion and to auscultation. Good air exchange. No wheezing or rhonchi. HEART: S1, S2 regular. ABDOMEN: Soft and nontender. Obese EXTREMITIES: No clubbing or cyanosis. 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 No focal deficit. Impressions: 1. Obstructive sleep apnea-hypopnea syndrome. Patient demonstrated great compliance with treatment, benefiting from treatment. 2. Obesity, body mass index more than 50. 3. History of atrial fibrillation. 4. Hypertension. 5. Factor V Leyden deficiency. 6. Hyperlipidemia. 7. Status post bariatric surgery. 8. History of insomnia with difficulties to initiate sleep, improved. Plan: 1. Continue using PAP equipment every night for the whole night. 2. To change air filter at least 1-2 times per month. 3. PAP unit should stay lower then position of the head. 4. Advised patient to remove all remaining water from humidifier canister daily and make it dry after each usage. Refill canister with fresh distilled water before each usage. 5. Sleep hygiene with regular time in bed for at least 8 hours. 6. Precautions related to driving. No driving if feel any sleepiness. 7. I will maintain prescription for PAP supplies including mask, tube, filters. 8. Follow up visit in 6 months or earlier if patient has any problems. 9. Watching and aggressive losing weight. Thank you very much for allowing me to participate in the management of your patient. Familia Santos MD, PhD, FAASM. Diplomat of [place] [employer], Sleep Medicine Board by [place] [employer] Translator of [facility] [place]
== END ==
LOC: SLEEP 10:56
PROVIDERS: ATTEND Internal Medicine
DX: G47.33 Obstructive sleep apnea (adult) (pediatric) (principal); E66.9 Obesity, unspecified; I10 Essential (primary) hypertension; E78.5 Hyperlipidemia, unspecified; Z98.84 Bariatric surgery status; Z68.43 Body mass index [BMI] 50.0-59.9, adult; Z86.79 Personal history of other diseases of the circulatory system; Z99.89 Dependence on other enabling machines and devices; D68.2 Hereditary deficiency of other clotting factors; Z88.1 Allergy status to other antibiotic agents
CPT/HCPCS: 99212

== ENCOUNTER 2022-04-29 08:19 | Emergency (ER) | payer BC ==
[2022-04-29] MEDS ORDERED: HYDROcodone/APAP 5-325MG 1 EACH TAB PO STA (08:48)
--- NOTE | 2022-04-29 09:07 | XR ---
EXAMINATION TYPE: XR knee complete LT DATE OF EXAM: 04/29/2022 9:03 AM INDICATION: Patient age:Male; 47 years old; Reason for study: Pain after injury; PHH. COMPARISON: None. TECHNIQUE: The Left knee(s) was examined in 3 projections. Frontal, lateral and oblique. FINDINGS: No acute fracture or dislocation. No aggressive osseous lesion. No joint effusion. Incide ntal fabella. Diffuse subcutaneous edema. IMPRESSION: 1. No acute osseous pathology. 2. Diffuse subcutaneous edema.
--- NOTE | 2022-04-29 09:36 | ED ---
Lower Extremity Injury HPI - General Chief Complaint: Extremity Injury, Lower Stated Complaint: knee pain Time Seen by Provider: 04/29/22 08:34 Source: patient, RN notes reviewed Mode of arrival: ambulatory Limitations: no limitations - History of Present Illness Initial Comments: This is a 47-year-old male who presents to the emergency department for left knee pain. 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 Reports hearing a "crunch" after he fell. This event happened 2 days ago. He has been elevating the leg, applying ice, and taking kdvs-[id number]-pyzfpda anti- inflammatories with no relief. States that his knee feels like it is buckling on him and it is incredibly painful when he tries to bend it. Denies any fevers, chills, sore throat, cough, dyspnea, chest pain, palpitations, abdominal pain, nausea, vomiting, diarrhea, back pain, or headaches. MD Complaint: knee injury Onset/Timin - Related Data Home Medications Medication Instructions Recorded Confirmed Diclofenac Sodium [Voltaren] 75 mg PO BID 10/30/19 12/27/21 lisinopriL [Zestril] 10 mg PO DAILY 10/30/19 12/28/21 Rivaroxaban [Xarelto] 20 mg PO DAILY 09/10/21 12/28/21 Atorvastatin Calcium 20 mg PO HS 10/17/21 12/27/21 traZODone HCL 100 mg PO HS PRN 10/17/21 12/27/21 Nystatin 100,000Unit/gm Cream 1 applic TOPICAL BID PRN 12/27/21 12/27/21 [Mycostatin Cream] Previous Rx's Medication Instructions Recorded Metoprolol Succinate (ER) [Toprol 50 mg PO BID 30 Days #60 tab 10/22/21 XL] HYDROcodone/APAP 5-325MG [Willis 1 tab PO Q6HR PRN 3 Days #12 tab 04/29/22 5-325] Allergies Allergy/AdvReac Type Severity Reaction Status Date / Time cephalexin [From Keflex] AdvReac Rash/Hives Verified 04/29/22 08:25 Review of Systems ROS Statement: Those systems with pertinent positive or pertinent negative responses have been documented in the HPI. ROS Other: All systems not noted in ROS Statement are negative. Past Medical History Past Medical History: Atrial Fibrillation, Blood Disorder, Deep Vein Thrombosis (DVT), GERD/Reflux, Sleep Apnea/CPAP/BIPAP Additional Past Medical History / Comment(s): see Dr Bolanos H&P, Factor V, DVT R leg, no cpap used currently, cellulitis left leg 10/2021 History of Any Multi-Drug Resistant Organisms: None Reported Past Surgical History: Bariatric Surgery, Cholecystectomy, Orthopedic Surgery Additional Past Surgical History / Comment(s): Gastric sleeve, post op abdominal abscess/abdomin washed out, panniculectomy, EGD, colonoscopy, cyst removed from upper back and tailbone, ORIF R ankle (hardware removed), R knee surgery for chip/fracture. Past Anesthesia/Blood Transfusion Reactions: Previous Problems w/ Anesthesia Additional Past Anesthesia/Blood Transfusion Reaction / Comment(s): STATES TAKES LONG TIME TO WAKE UP Past Psychological History: Depression Smoking Status: Never smoker Past Alcohol Use History: None Reported Past Drug Use History: None Reported - Past Family History Father History Unknown: Yes Family Medical History: Congestive Heart Failure (CHF), Myocardial Infarction (NH) Additional Family Medical History / Comment(s): SEVERAL NH'S. Mother Family Medical History: No Reported History Additional Family Medical History / Comment(s): HEALTHY Brother(s) History Unknown: Yes Family Medical History: Deep Vein Thrombosis (DVT), Pulmonary Embolus General Exam Limitations: no limitations General appearance: alert, in no apparent distress Head exam: Present: atraumatic, normocephalic, normal inspection Respiratory exam: Present: normal lung sounds bilaterally. Absent: respiratory distress, wheezes, rales, rhonchi, stridor Cardiovascular Exam: Present: regular rate, normal rhythm, normal heart sounds. Absent: systolic murmur, diastolic murmur, rubs, gallop, clicks Extremities exam: Present: other (Tenderness to palpation just superior to the left patella. Minor overlying ecchymosis. Evaluation of swelling is limited by patient's body habitus. No active range of motion secondary to pain. 2+ dorsalis pedis and tibialis posterior pulses bilaterally.) Neurological exam: Present: alert, oriented X3, CN II-XII intact Psychiatric exam: Present: normal affect, normal mood Skin exam: Present: warm, dry, intact, normal color. Absent: rash Course Vital Signs 04/29/22 04/29/22 08:22 09:25 Temperature 97.9 F 97.6 F Pulse Rate 68 61 Respiratory 20 16 Rate Blood Pressure 128/90 116/77 O2 Sat by Pulse 99 98 Oximetry Medical Decision Making - Medical Decision Making This is a 47-year-old male who presents to the emergency department for left knee pain. Was pt. sent in by a medical professional or institution? @ -No Did you speak to anyone other than the patient for history? @ -His Did you review nursing and triage notes? @ -Agree, accurate with regards to the patient's symptoms. Were old charts reviewed? @ -No Differential Diagnosis? @ -Fracture, knee sprain, knee strain, DVT, chilel's cyst, ACL injury, meniscus injury, this is not meant to be an all-inclusive list. X-rays interpreted by me (1pt min.)? @ -XR of the left knee obtained, my interpretation reveals swelling and no evidence of any fractures or dislocations. What testing was considered but not performed? (CT, X-rays, U/S, labs)? Why? @ -None What meds were considered but not given? Why? @ -None Did you discuss the management of the patient with other professionals? @ -No Did you reconcile home meds? @ -No Was smoking cessation discussed for >3mins.? @ -No Was critical care preformed (if so, how long)? @ -No Were there social determinants of health that impacted care today? How? (Homelessness, low income, unemployed, alcoholism, drug addiction, transportation, low edu. Level, literacy, decrease access to med. care, [facility], rehab)? @ -No Was there de-escalation of care discussed even if they declined? (Discuss DNR or withdrawal of care, Hospice)? @ -No What co-morbidities impacted this encounter? (DM, HTN, Smoking, COPD, CAD, Cancer, CVA, Hep., AIDS, mental health diagnosis, sleep apnea, morbid obesity)? @ -Morbid obesity, hx of DVT, factor V. Was patient admitted / discharged? @ -Discharged. X-ray obtained revealing no acute findings as listed above. P atient was given a dose of Willis with substantial relief in symptoms. Prescription for short course of Willis provided with dosing instructions reviewed. He is advised to use this very sparingly when his symptoms are most severe and to otherwise alternate with ibuprofen and Tylenol. Knee immobilizer was provided as well for stability. Advised he continue to elevate the leg and alternate with ice and heat. He is instructed to follow-up with his primary care provider regarding his symptoms to ensure that they are improving or to discuss additional testing if the pain worsens or continues to persist. Drug Therapy requiring intensive monitoring for toxicity (Heparin, Nitro, Insulin, Cardizem)? @ -None Were any procedures done? @ -None Diagnosis/symptom? @ -Left knee injury Acute, or Chronic, or Acute on Chronic? @ -Acute Uncomplicated (without systemic symptoms) or Complicated (systemic symptoms)? @ -Uncomplicated Side effects of treatment? @ -None Exacerbation, Progression, or Severe Exacerbation] @ -Not applicable Poses a threat to life or bodily function? @ -Impacting his ability to walk due to the pain. Return precautions reviewed in depth, the patient is instructed to return to the emergency department with any new, worsening, or concerning symptoms. Patient verbalized understanding. This case was discussed in detail with the attending ED physician, Dr. Denise. Presentation, findings, and treatment plan discussed in detail as well. - Radiology Data Radiology results: report reviewed, image reviewed Disposition Clinical Impression: Left knee pain Disposition: HOME SELF-CARE Instructions (If sedation given, give patient instructions): Knee Sprain (ED), Knee Pain (ED), Knee Immobilizer (ED) Additional Instructions: Return to the emergency department with any new, worsening, or concerning symptoms. Take the Willis sparingly when your pain is the most severe and otherwise alternate with Ibuprofen and Tylenol. Be aware that the Willis may be sedating and you should take it at night until you know how it affects you. You can use the knee immobilizer as needed. Follow up with your primary care provider in 1-2 days. Prescriptions: HYDROcodone/APAP 5-325MG [Willis 5-325] 1 tab PO Q6HR PRN 3 Days #12 tab PRN Reason: Pain Is patient prescribed a controlled substance at d/c from ED?: Yes When asked, does pt state using other controlled substances?: No If prescribed controlled substance>3 days was MAPS reviewed?: Prescribed <3 Days Referrals: Antonio Christensen DO [Primary Care Provider] - 1-2 days
[2022-04-29 09:50] VITALS: BP 116/77; PULSE 61; RESP 16; TEMP 97.6
== END 2022-04-29 09:59 | disposition home or self-care (01) ==
LOC: EC 08:19
DX: M25.562 Pain in left knee (principal); I48.91 Unspecified atrial fibrillation; G47.30 Sleep apnea, unspecified; F32.A Depression, unspecified; Z88.1 Allergy status to other antibiotic agents; W01.0XXA Fall on same level from slipping, tripping and stumbling without subsequent striking against object, initial encounter
CPT/HCPCS: 73562; 99283; L1830

== ENCOUNTER 2022-07-17 13:34 | Emergency (ER) | payer BC ==
[2022-07-17] MEDS ORDERED: ACETAMINOPHEN TAB 500 MG TAB PO STA (13:45)
[2022-07-17] MEDS ORDERED: IBUPROFEN 800 MG TAB PO STA (13:45)
--- NOTE | 2022-07-17 14:13 | ED ---
Fever HPI - General Chief Complaint: Upper Respiratory Infection Stated Complaint: hypotension, lethargic Time Seen by Provider: 07/17/22 13:44 Source: patient, RN notes reviewed, old records reviewed Mode of arrival: wheelchair Limitations: no limitations - History of Present Illness Initial Comments: This is a 39-year-old male to the ER for evaluation. Presents today for evaluation of fever chills shaking rigors. Patient has no real significant me dical history he does admit to havingcorona virus with 3 times but nothing recently. Patient states he awoke this morning feeling feverish chills body shakes aches pains difficulty with walking decreased ambulation decreased strength with nausea no vomiting. No travel history no known sick contacts with present bedside states she has felt well. Symptoms all began this morning felt fine at work yesterday has no medical problems takes no medications MD Complaint: fever, malaise, weakness, other (Bodyaches and pains) -: hour(s) Temperature Source: subjective Associated Symptoms: chills, rigors, myalgias, nausea Treatments Prior to Arrival: none - Related Data Home Medications Medication Instructions Recorded Confirmed Diclofenac Sodium [Voltaren] 75 mg PO BID 10/30/19 07/17/22 lisinopriL [Zestril] 10 mg PO DAILY 10/30/19 07/17/22 Rivaroxaban [Xarelto] 20 mg PO DAILY 09/10/21 07/17/22 Atorvastatin Calcium 20 mg PO HS 10/17/21 07/17/22 traZODone HCL 150 mg PO HS 07/17/22 07/17/22 Previous Rx's Medication Instructions Recorded Metoprolol Succinate (ER) [Toprol 50 mg PO BID 30 Days #60 tab 10/22/21 XL] Amoxic-Pot Clav 875-125Mg 1 tab PO Q12HR #20 tablet 07/17/22 [Augmentin 875-125] Azithromycin [Zithromax] 500 mg PO DAILY #5 tab 07/17/22 Allergies Allergy/AdvReac Type Severity Reaction Status Date / Time cephalexin [From Keflex] AdvReac Rash/Hives Verified 07/17/22 16:21 Review of Systems ROS Statement: Those systems with pertinent positive or pertinent negative responses have been documented in the HPI. ROS Other: All systems not noted in ROS Statement are negative. Past Medical History Past Medical History: Atrial Fibrillation, Blood Disorder, Deep Vein Thrombosis (DVT), GERD/Reflux, Sleep Apnea/CPAP/BIPAP Additional Past Medical History / Comment(s): see Dr Cici Rossi&P, Factor V, DVT R leg, no cpap used currently, cellulitis left leg 10/2021 History of Any Multi-Drug Resistant Organisms: None Reported Past Surgical History: Bariatric Surgery, Cholecystectomy, Orthopedic Surgery Additional Past Surgical History / Comment(s): Gastric sleeve, post op abdominal abscess/abdomin washed out, panniculectomy, EGD, colonoscopy, cyst removed from upper back and tailbone, ORIF R ankle (hardware removed), R knee surgery for chip/fracture. Past Anesthesia/Blood Transfusion Reactions: Previous Problems w/ Anesthesia Additional Past Anesthesia/Blood Transfusion Reaction / Comment(s): STATES TAKES LONG TIME TO WAKE UP Past Psychological History: Depression Smoking Status: Never smoker Past Alcohol Use History: None Reported Past Drug Use History: None Reported - Past Family History Father History Unknown: Yes Family Medical History: Congestive Heart Failure (CHF), Myocardial Infarction (ME) Additional Family Medical History / Comment(s): SEVERAL ME'S. Mother Family Medical History: No Reported History Additional Family Medical History / Comment(s): HEALTHY Brother(s) History Unknown: Yes Family Medical History: Deep Vein Thrombosis (DVT), Pulmonary Embolus General Exam Limitations: no limitations General appearance: alert, in no apparent distress Head exam: Present: atraumatic, normocephalic, normal inspection Eye exam: Present: normal appearance, PERRL, EOMI. Absent: scleral icterus, conjunctival injection, periorbital swelling ENT exam: Present: normal exam, mucous membranes moist Neck exam: Present: normal inspection. Absent: tenderness, meningismus, lympha denopathy Respiratory exam: Present: normal lung sounds bilaterally. Absent: respiratory distress, wheezes, rales, rhonchi, stridor Cardiovascular Exam: Present: regular rate, normal rhythm, normal heart sounds. Absent: systolic murmur, diastolic murmur, rubs, gallop, clicks GI/Abdominal exam: Present: soft, normal bowel sounds. Absent: distended, tenderness, guarding, rebound, rigid Extremities exam: Present: normal inspection, full ROM, normal capillary refill. Absent: tenderness, pedal edema, joint swelling, calf tenderness Back exam: Present: normal inspection Neurological exam: Present: alert, oriented X3, CN II-XII intact Psychiatric exam: Present: normal affect, normal mood Skin exam: Present: warm, dry, intact, normal color. Absent: rash Course Vital Signs 07/17/22 07/17/22 07/17/22 13:36 15:26 16:30 Temperature 100.5 F H 99.7 F H Pulse Rate 93 75 71 Respiratory 16 18 16 Rate Blood Pressure 118/81 110/50 106/69 O2 Sat by Pulse 97 95 95 Oximetry 07/17/22 17:00 Temperature Pulse Rate 74 Respiratory 18 Rate Blood Pressure 103/71 O2 Sat by Pulse 95 Oximetry - Reevaluation(s) Reevaluation #1: 07/17/22 14:12 Medical records reviewed Reevaluation #2: 07/17/22 14:12 Symptoms improved here in the ER Reevaluation #3: 07/17/22 17:59 Patient informed results and questions are answered Reevaluation #4: 07/17/22 14:12 Was pt. sent in by a medical professional or institution? @ -[by , PA, MACHINE HOOP MAKER HELPER, urgent care, hospital, or alf] Did you speak to anyone other than the patient for history? @ -[EMS, parent, family, police, friend?] Did you review nursing and triage notes? @ -[agree or disagree, why?] Were old charts reviewed? @ -[outside hosp., previous admissions, EMS record, old EKG, old radiological studies, urgent care reports/EKGs, alf records?] Differential Diagnosis? @ -[chest pain, altered mental status abdominal pain women, abdominal pain men, vaginal bleeding, weakness, fever, dyspnea, syncope, headache, dizziness, GI bleed, back pain, seizure] EKG interpreted by me (3pts min.)? @ -[none] X-rays interpreted by me (1pt min.)? @ -[none] CT interpreted by me (1pt min.)? @ -[none] U/S interpreted by me (1pt. min.)? @ -[none] What testing was considered but not performed? (CT, X-rays, U/S, labs)? Why? @ [CT, X-rays, U/S, labs? Why?] What meds were considered but not given? Why? @ -[none] Did you discuss the management of the patient with other professionals? @ -[professionals i.e. Dr, PA, MACHINE HOOP MAKER HELPER, Lab, RT, Psych Nurse, Administration Assistant, Healthcare Financial Analyst, Teacher, Grade Checker, case managers? Give summary] Did you reconcile home meds? @ -[none] Was smoking cessation discussed for >3mins.? @ -[none] Was critical care preformed (if so, how long)? @ -[none] Were there social determinants of health that impacted care today? How? (Homelessness, low income, unemployed, alcoholism, drug addiction, transportation, low edu. Level, literacy, decrease access to med. care, [facility], rehab)? @ -[Homelessness, low income, unemployed, alcoholism, drug addiction, transportation, low edu. Level, literacy, decrease access to med. care, usp, rehab?] Was there de-escalation of care discussed even if they declined? (Discuss DNR or withdrawal of care, Hospice)? @ -[Discuss DNR or withdrawal of care, Hospice?] What co-morbidities impacted this encounter? (DM, HTN, Smoking, COPD, CAD, Cancer, CVA, Hep., AIDS, mental health diagnosis, sleep apnea, morbid obesity)? @ -[DM, HTN, Smoking, COPD, CAD, Cancer, CVA, Hep., AIDS, mental health diagnosis, sleep apnea, morbid obesity?] Was patient admitted / discharged? @ -[hospital course] Undiagnosed new problem with uncertain prognosis? @ -[none] Drug Therapy requiring intensive monitoring for toxicity (Heparin, Nitro, Insulin, Cardizem)? @ -[none] Were any procedures done? @ -[none] Diagnosis/symptom? @ -[default] Acute, or Chronic, or Acute on Chronic? @ -[default] Uncomplicated (without systemic symptoms) or Complicated (systemic symptoms)? @ -[default] Side effects of treatment? @ -[none] Exacerbation, Progression, or Severe Exacerbation] @ -[no] Poses a threat to life or bodily function? @ -[no] Reevaluation #5: 07/17/22 14:12 Differential Chest Pain: Stable Angina, Unstable Angina, STEMI, NSTEMI Aortic Dissection, Pneumothorax, Musculoskeletal, Esophageal Spasm GERD, Cholecystitis, Pancreatitis, Zoster, this is not meant to be an all-inclusive list. Medical Decision Making - Medical Decision Making 47-year-old male to the emergency department, Patient does have a cough and white blood cell count fever will treat for pneumonia bronchitis and patient can be discharged home - Lab Data Result diagrams: 07/17/22 16:33 07/17/22 16:33 Lab Results 07/17/22 07/17/22 07/17/22 Range/Units 14:09 16:33 16:33 WBC 15.4 H (3.8-10.6) k/uL RBC 4.93 (4.30-5.90) m/uL Hgb 14.8 (13.0-17.5) gm/dL Hct 42.8 (39.0-53.0) % MCV 86.7 (80.0-100.0) fL MCH 30.0 (25.0-35.0) pg MCHC 34.6 (31.0-37.0) g/dL RDW 12.9 (11.5-15.5) % Plt Count 162 (150-450) k/uL MPV 7.5 Neutrophils % 89 % Lymphocytes % 6 % Monocytes % 3 % Eosinophils % 1 % Basophils % 0 % Neutrophils # 13.7 H (1.3-7.7) k/uL Lymphocytes # 0.9 L (1.0-4.8) k/uL Monocytes # 0.4 (0-1.0) k/uL Eosinophils # 0.2 (0-0.7) k/uL Basophils # 0.0 (0-0.2) k/uL Sodium (137-145) mmol/L Potassium (3.5-5.1) mmol/L Chloride (98-107) mmol/L Carbon Dioxide (22-30) mmol/L Anion Gap mmol/L BUN (9-20) mg/dL Creatinine (0.66-1.25) mg/dL Est GFR (CKD-EPI)AfAm (>60 ml/min/1.73 sqM) Est GFR (CKD-EPI)NonAf (>60 ml/min/1.73 sqM) Glucose (74-99) mg/dL Calcium (8.4-10.2) mg/dL Phosphorus (2.5-4.5) mg/dL Magnesium (1.6-2.3) mg/dL Total Bilirubin (0.2-1.3) mg/dL AST (17-59) U/L ALT (4-49) U/L Alkaline Phosphatase (38-126) U/L Troponin I (0.000-0.034) ng/mL Total Protein (6.3-8.2) g/dL Albumin (3.5-5.0) g/dL Heterophile Antibody Negative (Negative) Influenza Type A (PCR) Not Detected (Not Detectd) Influenza Type B (PCR) Not Detected (Not Detectd) RSV (PCR) Not Detected (Not Detectd) SARS-CoV-2 (PCR) Not Detected (Not Detectd) 07/17/22 07/17/22 Range/Units 16:33 16:33 WBC (3.8-10.6) k/uL RBC (4.30-5.90) m/uL Hgb (13.0-17.5) gm/dL Hct (39.0-53.0) % MCV (80.0-100.0) fL MCH (25.0-35.0) pg MCHC (31.0-37.0) g/dL RDW (11.5-15.5) % Plt Count (150-450) k/uL MPV Neutrophils % % Lymphocytes % % Monocytes % % Eosinophils % % Basophils % % Neutrophils # (1.3-7.7) k/uL Lymphocytes # (1.0-4.8) k/uL Monocytes # (0-1.0) k/uL Eosinophils # (0-0.7) k/uL Basophils # (0-0.2) k/uL Sodium 137 (137-145) mmol/L Potassium 4.8 (3.5-5.1) mmol/L Chloride 107 (98-107) mmol/L Carbon Dioxide 22 (22-30) mmol/L Anion Gap 8 mmol/L BUN 21 H (9-20) mg/dL Creatinine 1.02 (0.66-1.25) mg/dL Est GFR (CKD-EPI)AfAm >90 (>60 ml/min/1.73 sqM) Est GFR (CKD-EPI)NonAf 87 (>60 ml/min/1.73 sqM) Glucose 107 H (74-99) mg/dL Calcium 8.7 (8.4-10.2) mg/dL Phosphorus 3.1 (2.5-4.5) mg/dL Magnesium 1.8 (1.6-2.3) mg/dL Total Bilirubin 0.8 (0.2-1.3) mg/dL AST 28 (17-59) U/L ALT 32 (4-49) U/L Alkaline Phosphatase 100 (38-126) U/L Troponin I <0.012 (0.000-0.034) ng/mL Total Protein 7.1 (6.3-8.2) g/dL Albumin 3.9 (3.5-5.0) g/dL Heterophile Antibody (Negative) Influenza Type A (PCR) (Not Detectd) Influenza Type B (PCR) (Not Detectd) RSV (PCR) (Not Detectd) SARS-CoV-2 (PCR) (Not Detectd) - Radiology Data Radiology results: report reviewed (Chest x-rays negative for acute disease), image reviewed Disposition Clinical Impression: Acute upper respiratory infection, Bronchitis, Pneumonia, Fever Disposition: HOME SELF-CARE Condition: Good Instructions (If sedation given, give patient instructions): Community Acquired Pneumonia (ED) Prescriptions: Amoxic-Pot Clav 875-125Mg [Augmentin 875-125] 1 tab PO Q12HR #20 tablet Azithromycin [Zithromax] 500 mg PO DAILY #5 tab Is patient prescribed a controlled substance at d/c from ED?: No Referrals: Antonio Christensen DO [Primary Care Provider] - 1-2 days Time of Disposition: 18:00
--- NOTE | 2022-07-17 14:32 | XR ---
EXAMINATION TYPE: XR chest 1V portable DATE OF EXAM: 07/17/2022 COMPARISON: 10/19/2021 HISTORY: Cough TECHNIQUE: Single frontal view of the chest is obtained. FINDINGS: Exam is limited by poor inspiratory effort. Grossly there is no airspace consolidation or abnormal in terstitial density. Compared to the prior study there has been no interval change. There is no pleural effusion or pneumothorax. The osseous structures are intact IMPRESSION: No acute cardiopulmonary disease with no interval change.
[2022-07-17] MEDS ORDERED: SODIUM CHLORIDE 0.9% 1,000 ML IV STA (15:56)
[2022-07-17] MEDS ORDERED: ONDANSETRON 4 MG/2 ML VIAL IVP STA (15:56)
[2022-07-17 16:53] LABS: Basophils % (A) 0 %; Eosinophils # (A) 0.2 k/uL (0-0.7); Eosinophils % (A) 1 %; HCT 42.8 % (39.0-53.0); HGB 14.8 gm/dL (13.0-17.5); Lymphocytes # (A) 0.9 k/uL (1.0-4.8); Lymphocytes % (A) 6 %; MCHC 34.6 g/dL (31.0-37.0); MCV 86.7 fL (80.0-100.0); Mean Platelet Volume 7.5; Monocytes # (A) 0.4 k/uL (0-1.0); Monocytes % (A) 3 %; Neutrophils # (A) 13.7 k/uL (1.3-7.7); Neutrophils % (A) 89 %; Platelet Count 162 k/uL (150-450); RBC 4.93 m/uL (4.30-5.90); RDW 12.9 % (11.5-15.5); WBC 15.4 k/uL (3.8-10.6)
[2022-07-17 17:01] VITALS: RESP 18
[2022-07-17 17:01] LABS: Potassium 4.8 mmol/L (3.5-5.1)
[2022-07-17 17:02] LABS: ALT 32 U/L (4-49); AST 28 U/L (17-59); African American GFR (CKD) >90 (>60 ml/min/1.73 sqM); Albumin 3.9 g/dL (3.5-5.0); Alkaline Phosphatase 100 U/L (38-126); Anion Gap 8 mmol/L; Blood Urea Nitrogen 21 mg/dL (9-20); Calcium 8.7 mg/dL (8.4-10.2); Carbon Dioxide 22 mmol/L (22-30); Chloride 107 mmol/L (98-107); Glucose 107 mg/dL (74-99); Magnesium 1.8 mg/dL (1.6-2.3); Non-African American GFR(CKD) 87 (>60 ml/min/1.73 sqM); Phosphorus 3.1 mg/dL (2.5-4.5); Sodium 137 mmol/L (137-145); Total Bilirubin 0.8 mg/dL (0.2-1.3); Total Protein 7.1 g/dL (6.3-8.2)
[2022-07-17] MEDS ORDERED: AMOXIC-POT CLAV 875-125MG 1 EACH TAB PO STA (17:57)
[2022-07-17] MEDS ORDERED: AZITHROMYCIN 500 MG TAB PO STA (17:57)
[2022-07-17 18:53] VITALS: BP 116/65; PULSE 68; TEMP 97.7
== END 2022-07-17 18:55 | disposition home or self-care (01) ==
LOC: EC 13:34
DX: J40 Bronchitis, not specified as acute or chronic (principal); J18.9 Pneumonia, unspecified organism; J06.9 Acute upper respiratory infection, unspecified; R50.9 Fever, unspecified; I48.91 Unspecified atrial fibrillation; K21.9 Gastro-esophageal reflux disease without esophagitis; Z86.718 Personal history of other venous thrombosis and embolism; F32.A Depression, unspecified; Z88.1 Allergy status to other antibiotic agents; Z79.01 Long term (current) use of anticoagulants; Z79.899 Other long term (current) drug therapy; Z20.822 Contact with and (suspected) exposure to COVID-19
CPT/HCPCS: 36415; 80053; 83735; 84100; 84484; 85025; 86308; 87636; 71045; 99285; 96374; 96361; J2405

== ENCOUNTER → 2022-09-15 | Outpatient (CLI) | payer BC ==
--- NOTE | 2022-09-15 11:06 | P.PN ---
Subjective DATE: 09/15/2022 FOLLOW UP VISIT. Patient with obstructive sleep apnea hypopnea syndrome return to sleep center for follow-up visit. Information from previous visit have been reviewed. Patient is using PAP equipment every night for the whole night, getting PAP supplies in time. The patient does not have significant problems with the mask, PAP unit and humidification. [place] sleepiness scale is 4. I checked information from PAP unit. PAP unit pressure 6-13, average 11.8 cm H2O. Usage is 80% and 77 % for more then 4 hours, average 6.8 hours per night. Leak is 4.1 l/m, which is in acceptable range. Apnea Hypopnea Index is 3.2, which is normal. MEDICATIONS:1. Trazodone 100 mg once a day 2. Atorvastatin 20 mg once a day 3. Lisinopril 10 mg once a day 4. Xarelto 20 mg once a day 5. Metoprolol 50 mg once a day During physical exam: GENERAL: A pleasant patient without any distress. VITAL SIGNS: BP 121/77, HR 57, RR 12 , weight 381.2, temperature 97.2, oxygen saturation at room air 98 % . HEENT: PERRLA, EOMI.low position of soft palate, Mallapati 4 . NECK: Supple. No JVD. LUNGS: Clear to percussion and to auscultation. Good air exchange. No wheezing or rhonchi. HEART: S1, S2 regular. ABDOMEN: Soft and nontender. Obese EXTREMITIES: No clubbing or cyanosis. FLIGHT DISPATCHER: Awake, alert, and oriented x3. No focal deficit. Impressions: 1. Obstructive sleep apnea-hypopnea syndrome. Patient demonstrated good compliance with treatment, benefiting from treatment. 2. Obesity, BMI 49.5, patient lost 11 pounds since previous visit. 3. History of atrial fibrillation. 4. Hypertension. 5. Factor V [place] deficiency. 6. Status post bariatric surgery. 7. History of psychophysiological insomnia, improved. 8. Hyperlipidemia. Plan: 1. Continue using PAP equipment every night for the whole night. 2. To change air filter at least 1-2 times per month. 3. PAP unit should stay lower then position of the head. 4. Advised patient to remove all remaining water from humidifier canister daily and make it dry after each usage. Refill canister with fresh distilled water before each usage. 5. Sleep hygiene with regular time in bed for at least 8 hours. 6. Precautions related to driving. No driving if feel any sleepiness. 7. I will maintain prescription for PAP supplies including mask, tube, filters. 8. Watching and losing weight. 9. Follow up visit in 6 months or earlier if patient has any problems. Thank you very much for allowing me to participate in the management of your patient. Familia Santos MD, PhD, FAASM. Diplomat of [place] [employer], Sleep Medicine Board by [place] [employer] Editorial Pro[employer] of [facility] [place]
== END ==
LOC: 3 N SLEEP 10:36
PROVIDERS: ATTEND Internal Medicine
DX: G47.33 Obstructive sleep apnea (adult) (pediatric) (principal); E78.5 Hyperlipidemia, unspecified; E66.9 Obesity, unspecified; I10 Essential (primary) hypertension; I48.91 Unspecified atrial fibrillation; F51.04 Psychophysiologic insomnia; Z79.899 Other long term (current) drug therapy; Z79.01 Long term (current) use of anticoagulants; Z98.84 Bariatric surgery status; Z88.1 Allergy status to other antibiotic agents; Z99.89 Dependence on other enabling machines and devices; Z68.42 Body mass index [BMI] 45.0-49.9, adult
CPT/HCPCS: 99212

== ENCOUNTER 2023-03-23 15:10 | Emergency (ER) | payer BC, OTHER ==
--- NOTE | 2023-03-23 15:43 | ED ---
General Adult HPI - General Source: patient, RN notes reviewed Mode of arrival: ambulatory Limitations: no limitations <Drake Mchugh - Last Filed: 03/23/23 15:41> <Olya Roberts - Last Filed: 03/26/23 04:26> - General Stated complaint: chest pains Time Seen by Provider: 03/23/23 15:42 - History of Present Illness Initial comments: 47-year-old male presents emergency Department with chief complaint of lightheadedness, dizziness. Patient was treated for infection at urgent care for dental pain started antibiotics, given doses steroids. Patient states he developed dizziness worsened movement sometimes is standing. Occasionally has some palpitations. (Drake Mchugh) Quick note reviewed:This is a 47-year-old male with a past medical history significant for atrial fibrillation, blood disorder, DVT, factor V who presents to the emergency department with a chief complaint of dizziness. Ninos[place] ent reports that he has had dizziness that is worse with position for the last day. He is also complaining of chest pain that he localizes in the center of his chest. He describes as chest tightness. He is also complaining of a cough for the last few days. Denies any known fevers, nausea, vomiting, abdominal pain. He also offers that he hit his right lower leg approximately 1 month ago and is still having pain. He was recently switched from [place] to Plavix. Denies shortness of breath, palpitations, vision changes or vision loss headache (Olya Roberts) - Related Data Home Medications Medication Instructions Recorded Confirmed Diclofenac Sodium [Voltaren] 75 mg PO BID 10/30/19 07/17/22 lisinopriL [Zestril] 10 mg PO DAILY 10/30/19 07/17/22 Rivaroxaban [Xarelto] 20 mg PO DAILY 09/10/21 07/17/22 Atorvastatin Calcium 20 mg PO HS 10/17/21 07/17/22 traZODone HCL 150 mg PO HS 07/17/22 07/17/22 Previous Rx's Medication Instructions Recorded Metoprolol Succinate (ER) [Toprol 50 mg PO BID 30 Days #60 tab 10/22/21 XL] Amoxic-Pot Clav 875-125Mg 1 tab PO Q12HR #20 tablet 07/17/22 [Augmentin 875-125] Azithromycin [Zithromax] 500 mg PO DAILY #5 tab 07/17/22 Meclizine [Antivert] 25 mg PO ONCE #15 tab 03/24/23 Allergies Allergy/AdvReac Type Severity Reaction Status Date / Time cephalexin [From Keflex] AdvReac Rash/Hives Verified 03/23/23 15:38 Review of Systems ROS Other: All systems not noted in ROS Statement are negative. <Drake Mchugh - Last Filed: 03/23/23 15:41> ROS Other: All systems not noted in ROS Statement are negative. <Olya Roberts - Last Filed: 03/26/23 04:26> ROS Statement: Those systems with pertinent positive or pertinent negative responses have been documented in the HPI. Past Medical History Past Medical History: Atrial Fibrillation, Blood Disorder, Deep Vein Thrombosis (DVT), GERD/Reflux, Sleep Apnea/CPAP/BIPAP Additional Past Medical History / Comment(s): see Dr Bolanos H&P, Factor V, DVT R leg, no cpap used currently, cellulitis left leg 10/2021 History of Any Multi-Drug Resistant Organisms: None Reported Past Surgical History: Bariatric Surgery, Cholecystectomy, Orthopedic Surgery Additional Past Surgical History / Comment(s): Gastric sleeve, post op abdominal abscess/abdomin washed out, panniculectomy, EGD, colonoscopy, cyst removed from upper back and tailbone, ORIF R ankle (hardware removed), R knee surgery for chip/fracture. Past Anesthesia/Blood Transfusion Reactions: Previous Problems w/ Anesthesia Additional Past Anesthesia/Blood Transfusion Reaction / Comment(s): STATES TAKES LONG TIME TO WAKE UP Past Psychological History: Depression Smoking Status: Never smoker Past Alcohol Use History: None Reported Past Drug Use History: None Reported - Past Family History Father History Unknown: Yes Family Medical History: Congestive Heart Failure (CHF), Myocardial Infarction ([place]) Additional Family Medical History / Comment(s): SEVERAL WA'S. Mother Family Medical History: No Reported History Additional Family Medical History / Comment(s): HEALTHY Brother(s) History Unknown: Yes Family Medical History: Deep Vein Thrombosis (DVT), Pulmonary Embolus <Drake Mchugh - Last Filed: 03/23/23 15:41> General Exam <Drake Mchugh - Last Filed: 03/23/23 15:41> <Olya Roberts - Last Filed: 03/26/23 04:26> - General Exam Comments Initial Comments: Visual Physical Exam Vital signs reviewed General: Well-appearing, nontoxic, no acute distress. Head: Normocephalic, atraumatic Eyes: PERRLA, EOMI ENT: Airway patent Chest: Nonlabored breathing Skin: No visual rash, normal skin tone Neuro: Alert and oriented 3 Musculoskeletal: No gross abnormalities (Drake Mchugh) General: Alert, in no acute distress Head: atraumatic normocephalic. Eyes PERRL, EOMI intact, mucous membranes moist Respiratory: Lungs clear to auscultation bilaterally Cardiovascular: Regular rate and rhythm Abdominal: Soft without guarding or rebound Extremities: Normal inspection with full range of motion and normal capillary refill Neuroogic: alert and oriented 3, CN II-XII intact, able to ambulate with steady gait Skin: warm dry and intact with normal color (Olya Roberts) Course <Olya Roberts - Last Filed: 03/26/23 04:26> Vital Signs 03/23/23 03/24/23 15:39 01:26 Temperature 98.5 F 98.6 F Pulse Rate 67 62 Respiratory 18 18 Rate Blood Pressure 119/77 120/72 O2 Sat by Pulse 99 99 Oximetry - Reevaluation(s) Reevaluation #1: 03/23/23 19:15 quick note and vital signs were reviewed. initital history and physical exam were performed. 03/23/23 22:20 Reevaluated. Patient reports symptomatic improvement status post medications. Aware awaiting troponin result. 03/23/2023 Pt reevaluated and updated on results. Complaining of cough. Chest x-ray added on. (Olya Roberts) Reevaluation #2: 03/24/23 00:28 Patient reevaluated. Patient able to ambulate with a steady gait. Updated on results. Agreeable for plan for discharge home. (Olya Roberts) EKG Findings - EKG Comments: EKG Findings:: Treatment the following: EKG performed at 15:52 rate 65 bpm normal sinus rhythm WV interval 160, QRS duration 103, QT/QTc 435/447 <Olya Roberts - Last Filed: 03/26/23 04:26> Medical Decision Making <Drake Mchugh - Last Filed: 03/23/23 15:41> - Lab Data Result diagrams: 03/23/23 16:23 03/23/23 16:23 <Olya Roberts - Last Filed: 03/26/23 04:26> - Medical Decision Making I completed the quick note portion of this chart signed Drake Mchugh PA-C (Drake Mchugh) Was pt. sent in by a medical professional or institution (JADIEL Rouse, FUSING MACHINE FEEDER, urgent care, hospital, or prison...) When possible be specific @ -[No] Did you speak to anyone other than the patient for history (EMS, parent, family, police, friend...)? What history was obtained from this source @ - Did you review nursing and triage notes (agree or disagree)? Why? @ -[I reviewed and agree with nursing and triage notes] Were old charts reviewed (outside hosp., previous admission, EMS record, old EKG, old radiological studies, urgent care reports/EKG's, prison records)? Report findings @ -[No old charts were reviewed] Differential Diagnosis (chest pain, altered mental status, abdominal pain women, abdominal pain men, vaginal bleeding, weakness, fever, dyspnea, syncope, headache, dizziness, GI bleed, back pain, seizure, CVA, palpatations, mental health, musculoskeletal)? @ -[not applicable] EKG interpreted by me (3pts min.). @ -[As above] X-rays interpreted by me (1pt min.). @ -X-ray does not reveal any pleural process CT interpreted by me (1pt min.). @ -T in detail and any intracranial process U/S interpreted by me (1pt. min.). @ -[None done] What testing was considered but not performed or refused? (CT, X-rays, U/S, labs)? Why? @ -[None] What meds were considered but not given or refused? Why? @ -[None] Did you discuss the management of the patient with other professionals (professionals i.e. JADIEL Rouse, FUSING MACHINE FEEDER, lab, RT, psych nurse, social sciences department chair, draw bench operator helper, teacher, traffic division commanding officer, case management associate)? Give summary @ -[No] Was smoking cessation discussed for >3mins.? @ -[No] Was critical care preformed (if so, how long)? @ -[No] Were there social determinants of health that impacted care today? How? (Homelessness, low income, unemployed, alcoholism, drug addiction, transportation, low edu. Level, literacy, decrease access to med. care, assisted, rehab)? @ -[No] Was there de-escalation of care discussed even if they declined (Discuss DNR or withdrawal of care, Hospice)? DNR status @ -[No] What co-morbidities impacted this encounter? (DM, HTN, Smoking, COPD, CAD, Cancer, CVA, ARF, Chemo, Hep., AIDS, mental health diagnosis, sleep apnea, morbid obesity)? @ -[None] Was patient admitted / discharged? Hospital course, mention meds given and route, prescriptions, significant lab abnormalities, going to OR and other pertinent info. @ -Discharged. This is a 47-year-old male who presents emergency department with dizziness. Patient with a history and physical exam performed. Exam is essentially unremarkable. Heart rate regular rate and rhythm, lungs clear to auscultation bilaterally abdomen soft and nontender. Patient had extensive laboratory and imaging studies which were unremarkable. He is provided sent meclizine with symptomatic improvement. He was provided 1 L of IV fluids as well. I discussed results in detail with the patient verbalized understanding all questions addressed. He was provided a prescription for meclizine. Discharged in stable condition. Return precautions were discussed at length. Case is discussed with Dr. Denise who agrees with POC Undiagnosed new problem with uncertain prognosis? @ -[No] Drug Therapy requiring intensive monitoring for toxicity (Heparin, Nitro, Insulin, Cardizem)? @ -[No] Were any procedures done? @ -[No] Diagnosis/symptom? @ -Dizziness vs. Vertigo Acute, or Chronic, or Acute on Chronic? @ -Acute Uncomplicated (without systemic symptoms) or Complicated (systemic symptoms)? @ -Uncomplicated Side effects of treatment? @ -[No] Exacerbation, Progression, or Severe Exacerbation? @ -[No] Poses a threat to life or bodily function? How? (Chest pain, [place], [place], pneumonia, PE, COPD, DKA, ARF, appy, cholecystitis, CVA, Diverticulitis, Homicidal, Suicidal, threat to staff... and all critical care pts) @ -Low likelihood (FrannyiOlya) - Lab Data Lab Results 03/23/23 03/23/23 03/23/23 Range/Units 16:23 16:23 16:23 WBC 10.0 (3.8-10.6) k/uL RBC 4.84 (4.30-5.90) m/uL Hgb 14.6 (13.0-17.5) gm/dL Hct 43.8 (39.0-53.0) % MCV 90.5 (80.0-100.0) fL MCH 30.2 (25.0-35.0) pg MCHC 33.4 (31.0-37.0) g/dL RDW 12.9 (11.5-15.5) % Plt Count 189 (150-450) k/uL MPV 7.5 Neutrophils % 63 % Lymphocytes % 27 % Monocytes % 5 % Eosinophils % 3 % Basophils % 1 % Neutrophils # 6.3 (1.3-7.7) k/uL Lymphocytes # 2.7 (1.0-4.8) k/uL Monocytes # 0.5 (0-1.0) k/uL Eosinophils # 0.3 (0-0.7) k/uL Basophils # 0.1 (0-0.2) k/uL Sodium 141 (137-145) mmol/L Potassium 5.0 (3.5-5.1) mmol/L Chloride 106 (98-107) mmol/L Carbon Dioxide 25 (22-30) mmol/L Anion Gap 10 mmol/L BUN 31 H (9-20) mg/dL Creatinine 0.78 (0.66-1.25) mg/dL Est GFR (CKD-EPI)AfAm >90 (>60 ml/min/1.73 sqM) Est GFR (CKD-EPI)NonAf >90 (>60 ml/min/1.73 sqM) Glucose 114 H (74-99) mg/dL Calcium 8.8 (8.4-10.2) mg/dL Total Bilirubin 0.8 (0.2-1.3) mg/dL AST 40 (17-59) U/L ALT 24 (4-49) U/L Alkaline Phosphatase 93 (38-126) U/L Troponin I <0.012 (0.000-0.034) ng/mL Total Protein 7.7 (6.3-8.2) g/dL Albumin 4.2 (3.5-5.0) g/dL 03/23/23 Range/Units 21:24 WBC (3.8-10.6) k/uL RBC (4.30-5.90) m/uL Hgb (13.0-17.5) gm/dL Hct (39.0-53.0) % MCV (80.0-100.0) fL MCH (25.0-35.0) pg MCHC (31.0-37.0) g/dL RDW (11.5-15.5) % Plt Count (150-450) k/uL MPV Neutrophils % % Lymphocytes % % Monocytes % % Eosinophils % % Basophils % % Neutrophils # (1.3-7.7) k/uL Lymphocytes # (1.0-4.8) k/uL Monocytes # (0-1.0) k/uL Eosinophils # (0-0.7) k/uL Basophils # (0-0.2) k/uL Sodium (137-145) mmol/L Potassium (3.5-5.1) mmol/L Chloride (98-107) mmol/L Carbon Dioxide (22-30) mmol/L Anion Gap mmol/L BUN (9-20) mg/dL Creatinine (0.66-1.25) mg/dL Est GFR (CKD-EPI)AfAm (>60 ml/min/1.73 sqM) Est GFR (CKD-EPI)NonAf (>60 ml/min/1.73 sqM) Glucose (74-99) mg/dL Calcium (8.4-10.2) mg/dL Total Bilirubin (0.2-1.3) mg/dL AST (17-59) U/L ALT (4-49) U/L Alkaline Phosphatase (38-126) U/L Troponin I <0.012 (0.000-0.034) ng/mL Total Protein (6.3-8.2) g/dL Albumin (3.5-5.0) g/dL Disposition <Drake Mchugh - Last Filed: 03/23/23 15:41> Is patient prescribed a controlled substance at d/c from ED?: No Time of Disposition: 00:28 <Olya Roberts Last Filed: 03/26/23 04:26> Clinical Impression: Dizziness Disposition: HOME SELF-CARE Condition: Stable Instructions (If sedation given, give patient instructions): Dizziness (ED) Additional Instructions: Monitor symptoms closely Return to the nearest emergency department if worsening symptoms Prescriptions: Meclizine [Antivert] 25 mg PO ONCE #15 tab Referrals: Antonio Christensen DO [Primary Care Provider] - 1-2 days
[2023-03-23 15:50] VITALS: RESP 18
[2023-03-23 16:32] LABS: Basophils # (A) 0.1 k/uL (0-0.2); Basophils % (A) 1 %; Eosinophils # (A) 0.3 k/uL (0-0.7); Eosinophils % (A) 3 %; HCT 43.8 % (39.0-53.0); HGB 14.6 gm/dL (13.0-17.5); Lymphocytes # (A) 2.7 k/uL (1.0-4.8); Lymphocytes % (A) 27 %; MCH 30.2 pg (25.0-35.0); MCHC 33.4 g/dL (31.0-37.0); MCV 90.5 fL (80.0-100.0); Mean Platelet Volume 7.5; Monocytes # (A) 0.5 k/uL (0-1.0); Monocytes % (A) 5 %; Neutrophils # (A) 6.3 k/uL (1.3-7.7); Neutrophils % (A) 63 %; Platelet Count 189 k/uL (150-450); RBC 4.84 m/uL (4.30-5.90); RDW 12.9 % (11.5-15.5)
[2023-03-23 16:44] LABS: ALT 24 U/L (4-49); AST 40 U/L (17-59); African American GFR (CKD) >90 (>60 ml/min/1.73 sqM); Albumin 4.2 g/dL (3.5-5.0); Alkaline Phosphatase 93 U/L (38-126); Anion Gap 10 mmol/L; Blood Urea Nitrogen 31 mg/dL (9-20); Calcium 8.8 mg/dL (8.4-10.2); Carbon Dioxide 25 mmol/L (22-30); Chloride 106 mmol/L (98-107); Glucose 114 mg/dL (74-99); Non-African American GFR(CKD) >90 (>60 ml/min/1.73 sqM); Sodium 141 mmol/L (137-145); Total Bilirubin 0.8 mg/dL (0.2-1.3); Total Protein 7.7 g/dL (6.3-8.2)
[2023-03-23] MEDS ORDERED: MECLIZINE 12.5 MG TAB PO STA (19:27)
[2023-03-23] MEDS ORDERED: SODIUM CHLORIDE 0.9% 1,000 ML IV ONE (19:27)
--- NOTE | 2023-03-23 20:15 | CT ---
EXAMINATION TYPE: CT brain wo con DATE OF EXAM: 03/23/2023 COMPARISON: 08/12/2015 HISTORY: Patient states that he has been dizzy the last couple days. TECHNIQUE: CT scan of the head is performed without contrast. Automated Exposure Control for Dose Red uction was Utilized. CT DLP: Combined DLP 2207.4 mGycm. FINDINGS: There is no acute intracranial hemorrhage, mass, mass effect, or focal encephalomalacia. No extra-axial fluid collection. The ventricles and sulci are within normal limits in size. No skull fracture. The orbits are intact and the orbital contents are unremarkable. The paranasal sin uses, middle ear cavities, and mastoid sinus air cells are clear. IMPRESSION: No acute intracranial process.
--- NOTE | 2023-03-23 20:34 | US ---
EXAMINATION TYPE: US venous doppler duplex LE RT DATE OF EXAM: 03/23/2023 8:15 PM COMPARISON: 10/19/21 CLINICAL INDICATION: Male, 47 years old with history of R leg pain; Discoloration and bump on r tabares x 1 month. Pt had a fall at work 1 month ago. Factor 5. Hx of DVT in right leg. On blood thinners SIDE PERFORMED: Right TECHNIQUE: The lower extremity deep venous system is examined utilizing real time linear array sonog elver with graded compression, doppler sonography and color-flow sonography. VESSELS IMAGED: Common Femoral Vein Deep Femoral Vein Greater Saphenous Vein * Femoral Vein Popliteal Vein Small Saphenous Vein * Proximal Calf Veins (* superficial vessels) FINDINGS: Grayscale, color doppler, spectral doppler imaging performed of the deep veins of the RLE. There is normal flow, compressibility, and vascular waveforms. IMPRESSION: Negative for DVT, right lower extremity. Right tabares area of interest: Subcutaneous edematous change noted, measuring 13 x 6 x 3 mm.
--- NOTE | 2023-03-23 21:01 | CT ---
EXAMINATION TYPE: CT angio head neck with contrast and with 3-D Reconstruction rendering independent workstation DATE OF EXAM: 03/23/2023 HISTORY: Patient states that he has been dizzy the last couple days. TECHNIQUE: CTA scan of the head and neck is performed with IV Contrast, patient injected with 65 cc m L of Isovue 370, axial images are obtained, coronal and sagittal reformatted images are reviewed. 3D reconstructed images are created on an independent workstation and reviewed. CT DLP: Combined DLP 2207.4 mGycm. Automated Exposure Control for Dose Reduction was Utilized. COMPARISON: None FINDINGS: CTA NECK The bilateral carotid arterial systems are widely patent without acute findings or hemodynamically si gnificant stenosis. The bilateral vertebral arterial systems are widely patent without acute findings or hemodynamically significant stenosis. Other: No acute incidental findings. CTA BRAIN The anterior and posterior arterial circulation are widely patent, without acute findings, aneurysm, or hemodynamic significant stenosis. Other: No acute incidental findings. IMPRESSION: No significant abnormality is seen. NASCET criteria was used in interpretation of this exam?
--- NOTE | 2023-03-23 23:54 | XR ---
EXAM: XR Chest, 2 Views CLINICAL HISTORY: ITS.REASON XR Reason: cough TECHNIQUE: Frontal and lateral views of the chest. COMPARISON: CXR July 17, 2022. FINDINGS: Lungs: Unremarkable. No consolidation. Pleural space: Unremarkable. No pneumothorax. Heart: Unremarkable. No cardiomegaly. Mediastinum: Unremarkable. Normal mediastinal contour. Bones/joints: Unremarkable. No acute fracture. IMPRESSION: Normal chest x-rays.
[2023-03-24 01:50] VITALS: BP 120/72; PULSE 62; TEMP 98.6
== END 2023-03-24 01:28 | disposition home or self-care (01) ==
LOC: EC 15:10
DX: R42 Dizziness and giddiness (principal); I48.91 Unspecified atrial fibrillation; Z86.718 Personal history of other venous thrombosis and embolism; F32.A Depression, unspecified; Z88.1 Allergy status to other antibiotic agents; Z79.01 Long term (current) use of anticoagulants; Z79.899 Other long term (current) drug therapy
CPT/HCPCS: 36415; 93005; 80053; 84484; 85025; 71046; 93971; 70496; 70450; 70498; 99285; 96360; Q9967

== ENCOUNTER 2023-06-21 11:08 | Emergency (ER) | payer BC, OTHER ==
[2023-06-21 11:37] VITALS: RESP 18; TEMP 98.2
[2023-06-21] MEDS: MECLIZINE 12.5 MG TAB PO STA (12:28)
[2023-06-21] MEDS: SODIUM CHLORIDE 0.9% 1,000 ML IV STA (12:29)
[2023-06-21] MEDS: ONDANSETRON 4 MG/2 ML VIAL IVP STA (12:29)
[2023-06-21 12:35] LABS: Basophils % (A) 1 %; Eosinophils # (A) 0.2 k/uL (0-0.7); Eosinophils % (A) 2 %; HCT 37.8 % (39.0-53.0); HGB 12.7 gm/dL (13.0-17.5); Lymphocytes # (A) 2.5 k/uL (1.0-4.8); Lymphocytes % (A) 31 %; MCH 30.3 pg (25.0-35.0); MCHC 33.4 g/dL (31.0-37.0); MCV 90.5 fL (80.0-100.0); Mean Platelet Volume 7.2; Monocytes # (A) 0.4 k/uL (0-1.0); Monocytes % (A) 5 %; Neutrophils # (A) 4.9 k/uL (1.3-7.7); Neutrophils % (A) 59 %; Platelet Count 181 k/uL (150-450); RBC 4.18 m/uL (4.30-5.90); RDW 12.8 % (11.5-15.5); WBC 8.2 k/uL (3.8-10.6)
[2023-06-21 12:49] LABS: ALT 22 U/L (4-49); AST 24 U/L (17-59); African American GFR (CKD) >90 (>60 ml/min/1.73 sqM); Albumin 3.5 g/dL (3.5-5.0); Alkaline Phosphatase 90 U/L (38-126); Anion Gap 5 mmol/L; Blood Urea Nitrogen 23 mg/dL (9-20); Calcium 8.9 mg/dL (8.4-10.2); Carbon Dioxide 27 mmol/L (22-30); Chloride 109 mmol/L (98-107); Glucose 96 mg/dL (74-99); Non-African American GFR(CKD) >90 (>60 ml/min/1.73 sqM); Sodium 141 mmol/L (137-145); Total Bilirubin 0.7 mg/dL (0.2-1.3); Total Protein 6.4 g/dL (6.3-8.2)
[2023-06-21 13:02] LABS: INR 1.1 (<1.2); Prothrombin Time 11.5 sec (10.0-12.5)
--- NOTE | 2023-06-21 13:30 | XR ---
EXAMINATION TYPE: XR chest 2V DATE OF EXAM: 06/21/2023 COMPARISON: 03/23/2023 HISTORY: 48-year-old male with dizziness TECHNIQUE: Frontal and lateral views FINDINGS: Heart mildly enlarged. Interstitial density noted but without consolidation or pleural effusion. IMPRESSION: 1. 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 2. Interstitial density could reflect mild pulmonary vascular congestion, bronchitis, or chronic asth ma. Clinically correlate.
[2023-06-21] MEDS: METOCLOPRAMIDE 5 MG/ML 2 ML VIAL IVP STA (14:00)
[2023-06-21] MEDS: SCOPOLAMINE 1 MG/72 HR PATCH TRANSDERM STA (14:04)
--- NOTE | 2023-06-21 14:33 | ED ---
Dizziness HPI - General Chief Complaint: Dizziness Stated Complaint: Dizziness, nausea, vomitting Time Seen by Provider: 06/21/23 11:22 Source: patient, family, RN notes reviewed Mode of arrival: wheelchair Limitations: no limitations - History of Present Illness Initial Comments: This is a 48-year-old male who presents to the emergency department for di candelario. For the last 2 weeks, patient has had intermittent episodes of dizziness. Describes this as a room spinning sensation and positional in nature. Anytime he tries to sit up or turn his head, he develops the dizziness, which is often followed by nausea and vomiting. Denies any chest pain or shortness of breath. He does have A-fib and states that his heart rate fluctuates throughout the day. However, he has also noticed it getting pretty low, into the 40s. He is asymptomatic in terms of the atrial fibrillation. States that he has never been diagnosed with vertigo. Denies any ear pain, ringing in the ears, or hearing loss. He did have minor URI symptoms over the last few days, which have started to improve. MD Complaint: dizziness - Related Data Home Medications Medication Instructions Recorded Confirmed Diclofenac Sodium [Voltaren] 75 mg PO BID 10/30/19 06/21/23 lisinopriL [Zestril] 10 mg PO DAILY 10/30/19 06/21/23 Atorvastatin Calcium 20 mg PO HS 10/17/21 06/21/23 Clopidogrel [Plavix] 75 mg PO DAILY 06/21/23 06/21/23 traZODone HCL [Desyrel] 200 mg PO HS 06/21/23 06/21/23 Previous Rx's Medication Instructions Recorded Metoprolol Succinate (ER) [Toprol 50 mg PO BID 30 Days #60 tab 10/22/21 XL] Meclizine HCl 25 mg PO QID PRN #20 tab 06/21/23 Metoclopramide [Reglan] 10 mg PO Q6H PRN #30 tab 06/21/23 Allergies Allergy/AdvReac Type Severity Reaction Status Date / Time cephalexin [From Keflex] AdvReac Rash/Hives Verified 06/21/23 13:13 Review of Systems ROS Statement: Those systems with pertinent positive or pertinent negative responses have been documented in the HPI. ROS Other: All systems not noted in ROS Statement are negative. Past Medical History Past Medical History: Atrial Fibrillation, Blood Disorder, Deep Vein Thrombosis (DVT), GERD/Reflux, Sleep Apnea/CPAP/BIPAP Additional Past Medical History / Comment(s): see Dr Bolanos H&P, Factor V, DVT R leg, no cpap used currently, cellulitis left leg 10/2021 History of Any Multi-Drug Resistant Organisms: None Reported Past Surgical History: Bariatric Surgery, Cholecystectomy, Orthopedic Surgery Additional Past Surgical History / Comment(s): Gastric sleeve, post op abdominal abscess/abdomin washed out, panniculectomy, EGD, colonoscopy, cyst removed from upper back and tailbone, ORIF R ankle (hardware removed), R knee surgery for chip/fracture. Past Anesthesia/Blood Transfusion Reactions: Previous Problems w/ Anesthesia Additional Past Anesthesia/Blood Transfusion Reaction / Comment(s): STATES TAKES LONG TIME TO WAKE UP Past Psychological History: Depression Smoking Status: Never smoker Past Alcohol Use History: None Reported Past Drug Use History: None Reported - Past Family History Father History Unknown: Yes Family Medical History: Congestive Heart Failure (CHF), Myocardial Infarction (SC) Additional Family Medical History / Comment(s): SEVERAL SC'S. Mother Family Medical History: No Reported History Additional Family Medical History / Comment(s): HEALTHY Brother(s) History Unknown: Yes Family Medical History: Deep Vein Thrombosis (DVT), Pulmonary Embolus General Exam Limitations: no limitations General appearance: alert, in no apparent distress Head exam: Present: atraumatic, normocephalic, normal inspection Eye exam: Present: normal appearance, PERRL, EOMI. Absent: scleral icterus, conjunctival injection, periorbital swelling Respiratory exam: Present: normal lung sounds bilaterally. Absent: respiratory distress, wheezes, rales, rhonchi, stridor Cardiovascular Exam: Present: regular rate, normal rhythm, normal heart sounds. Absent: systolic murmur, diastolic murmur, rubs, gallop, clicks Neurological exam: Present: alert, oriented X3, CN II-XII intact Psychiatric exam: Present: normal affect, normal mood Skin exam: Present: warm, dry, intact, normal color. Absent: rash Course Vital Signs 06/21/23 06/21/23 06/21/23 11:13 12:32 13:15 Temperature 98.2 F Pulse Rate 52 L 51 L 46 L Respiratory 18 18 18 Rate Blood Pressure 144/86 137/86 117/74 O2 Sat by Pulse 100 99 100 Oximetry 06/21/23 06/21/23 13:58 15:12 Temperature Pulse Rate 48 L 56 L Respiratory 18 18 Rate Blood Pressure 124/74 126/77 O2 Sat by Pulse 97 98 Oximetry Medical Decision Making - Medical Decision Making This is a 48-year-old male who presents to the emergency department for [facility]. Was pt. sent in by a medical professional or institution? @ -No Did you speak to anyone other than the patient for history? @ -No Did you review nursing and triage notes? @ -Yes, and I agree, it is accurate with regards to the patient's symptoms. Were old charts reviewed? @ -No Differential Diagnosis? @ -Differential Dizziness: Benign paroxysmal positional Vertigo, Menieres disease, otitis media, acoustic neuroma, vertebrobasilar insufficiency, cerebellar stroke, encephalitis, hypovolemic, arrhythmia, coronary artery syndrome, anemia, this is not meant to be an all-inclusive list EKG interpreted by me (3pts min.)? @ -EKG interpreted by me demonstrating the following: Sinus bradycardia. Ventricular rate 58 bpm, WA interval 171 ms, QRS duration 105 ms, QTc 457 ms. X-rays interpreted by me (1pt min.)? @ -Chest x-ray obtained, my interpretation identifies no localized consolidations or infiltrates. CT interpreted by me (1pt min.)? @ -Not obtained U/S interpreted by me (1pt. min.)? @ -Not obtained What testing was considered but not performed? (CT, X-rays, U/S, labs)? Why? @ -None What meds were considered but not given? Why? @ -None Did you discuss the management of the patient with other professionals? @ -No Did you reconcile home meds? @ -No Was smoking cessation discussed for >3mins.? @ -No Was critical care preformed (if so, how long)? @ -No Were there social determinants of health that impacted care today? How? (Homelessness, low income, unemployed, alcoholism, drug addiction, transportation, low edu. Level, literacy, decrease access to med. care, longterm, rehab)? @ -No Was there de-escalation of care discussed even if they declined? (Discuss DNR or withdrawal of care, Hospice)? @ -No What co-morbidities impacted this encounter? (DM, HTN, Smoking, COPD, CAD, Cancer, CVA, Hep., AIDS, mental health diagnosis, sleep apnea, morbid obesity)? @ -A-fib Was patient admitted / discharged? @ -Discharged. Lab work unremarkable. Chest x-ray obtained demonstrating i nterstitial densities suggestive of mild pulmonary vascular congestion, bronchitis, or chronic asthma. Patient initially described that this was a new problem. However, on review of prior charts, he presented to the emergency department for dizziness in March 2023. Full workup, including CT scan of the brain was normal. He was diagnosed with vertigo at that time and given a prescription for meclizine. His symptoms were well-controlled with IV fluids, meclizine, and Reglan. He was able to ambulate with little to no residual dizziness. Given the positional nature of his symptoms and improvement with medication, symptoms likely related to BPPV. Patient did call his scleroscope tester, and scheduled an appointment for tomorrow morning to discuss the bradycardia. Prescription for Reglan and meclizine provided with dosing instructions reviewed. Patient otherwise discharged home in stable condition. Undiagnosed new problem with uncertain prognosis? @ -None Drug Therapy requiring intensive monitoring for toxicity (Heparin, Nitro, Insulin, Cardizem)? @ -None Were any procedures done? @ -None Diagnosis/symptom? @ -BPPV, bradycardia Acute, or Chronic, or Acute on Chronic? @ -Acute Uncomplicated (without systemic symptoms) or Complicated (systemic symptoms)? @ -Uncomplicated Side effects of treatment? @ -None Exacerbation, Progression, or Severe Exacerbation] @ -Not applicable Poses a threat to life or bodily function? @ -No Return precautions reviewed in depth, the patient is instructed to return to the emergency department with any new, worsening, or concerning symptoms. Patient verbalized understanding. This case was discussed in detail with the attending ED physician, Dr. Young. Presentation, findings, and treatment plan discussed in detail as well. - Lab Data Result diagrams: 06/21/23 11:41 06/21/23 11:41 Lab Results 06/21/23 06/21/23 06/21/23 Range/Units 11:41 11:41 11:41 WBC 8.2 (3.8-10.6) k/uL RBC 4.18 L (4.30-5.90) m/uL Hgb 12.7 L (13.0-17.5) gm/dL Hct 37.8 L (39.0-53.0) % MCV 90.5 (80.0-100.0) fL MCH 30.3 (25.0-35.0) pg MCHC 33.4 (31.0-37.0) g/dL RDW 12.8 (11.5-15.5) % Plt Count 181 (150-450) k/uL MPV 7.2 Neutrophils % 59 % Lymphocytes % 31 % Monocytes % 5 % Eosinophils % 2 % Basophils % 1 % Neutrophils # 4.9 (1.3-7.7) k/uL Lymphocytes # 2.5 (1.0-4.8) k/uL Monocytes # 0.4 (0-1.0) k/uL Eosinophils # 0.2 (0-0.7) k/uL Basophils # 0.0 (0-0.2) k/uL PT 11.5 (10.0-12.5) sec INR 1.1 (<1.2) Sodium 141 (137-145) mmol/L Potassium 4.0 (3.5-5.1) mmol/L Chloride 109 H (98-107) mmol/L Carbon Dioxide 27 (22-30) mmol/L Anion Gap 5 mmol/L BUN 23 H (9-20) mg/dL Creatinine 0.91 (0.66-1.25) mg/dL Est GFR (CKD-EPI)AfAm >90 (>60 ml/min/1.73 sqM) Est GFR (CKD-EPI)NonAf >90 (>60 ml/min/1.73 sqM) Glucose 96 (74-99) mg/dL Calcium 8.9 (8.4-10.2) mg/dL Total Bilirubin 0.7 (0.2-1.3) mg/dL AST 24 (17-59) U/L ALT 22 (4-49) U/L Alkaline Phosphatase 90 (38-126) U/L Troponin I (0.000-0.034) ng/mL Total Protein 6.4 (6.3-8.2) g/dL Albumin 3.5 (3.5-5.0) g/dL Influenza Type A (PCR) (Not Detectd) Influenza Type B (PCR) (Not Detectd) RSV (PCR) (Not Detectd) SARS-CoV-2 (PCR) (Not Detectd) 06/21/23 06/21/23 Range/Units 11:41 11:41 WBC (3.8-10.6) k/uL RBC (4.30-5.90) m/uL Hgb (13.0-17.5) gm/dL Hct (39.0-53.0) % MCV (80.0-100.0) fL MCH (25.0-35.0) pg MCHC (31.0-37.0) g/dL RDW (11.5-15.5) % Plt Count (150-450) k/uL MPV Neutrophils % % Lymphocytes % % Monocytes % % Eosinophils % % Basophils % % Neutrophils # (1.3-7.7) k/uL Lymphocytes # (1.0-4.8) k/uL Monocytes # (0-1.0) k/uL Eosinophils # (0-0.7) k/uL Basophils # (0-0.2) k/uL PT (10.0-12.5) sec INR (<1.2) Sodium (137-145) mmol/L Potassium (3.5-5.1) mmol/L Chloride (98-107) mmol/L Carbon Dioxide (22-30) mmol/L Anion Gap mmol/L BUN (9-20) mg/dL Creatinine (0.66-1.25) mg/dL Est GFR (CKD-EPI)AfAm (>60 ml/min/1.73 sqM) Est GFR (CKD-EPI)NonAf (>60 ml/min/1.73 sqM) Glucose (74-99) mg/dL Calcium (8.4-10.2) mg/dL Total Bilirubin (0.2-1.3) mg/dL AST (17-59) U/L ALT (4-49) U/L Alkaline Phosphatase (38-126) U/L Troponin I <0.012 (0.000-0.034) ng/mL Total Protein (6.3-8.2) g/dL Albumin (3.5-5.0) g/dL Influenza Type A (PCR) Not Detected (Not Detectd) Influenza Type B (PCR) Not Detected (Not Detectd) RSV (PCR) Not Detected (Not Detectd) SARS-CoV-2 (PCR) Not Detected (Not Detectd) - Radiology Data Radiology results: report reviewed, image reviewed Disposition Clinical Impression: BPPV (benign paroxysmal positional vertigo), Bradycardia Disposition: HOME SELF-CARE Instructions (If sedation given, give patient instructions): Benign Paroxysmal Positional Vertigo (ED), Dizziness (ED) Additional Instructions: Return to the emergency department with any new, worsening, or concerning symptoms. You can take the Meclizine up to 4 times daily as needed for dizzines s/vertigo. If that is not effective, you can also take the Reglan up to every 6 hours for dizziness/vertigo, or nausea/vomiting. Follow up with your primary care provider in 1-2 days and scleroscope tester tomorrow as scheduled. Prescriptions: Meclizine HCl 25 mg PO QID PRN #20 tab PRN Reason: Vertigo Metoclopramide [Reglan] 10 mg PO Q6H PRN #30 tab PRN Reason: Nausea And Vomiting Is patient prescribed a controlled substance at d/c from ED?: No Referrals: Antonio Christensen DO [Primary Care Provider] - 1-2 days Time of Disposition: 15:38
[2023-06-21 15:39] VITALS: BP 126/77; PULSE 56
[2023-06-21] MEDS: ONDANSETRON 4 MG ODT STARTER PACK 2 TAB BTL PO STA (15:49)
== END 2023-06-21 15:54 | disposition home or self-care (01) ==
LOC: EC 11:08
DX: H81.10 Benign paroxysmal vertigo, unspecified ear (principal); R00.1 Bradycardia, unspecified; I48.91 Unspecified atrial fibrillation; G47.30 Sleep apnea, unspecified; F32.A Depression, unspecified; Z79.899 Other long term (current) drug therapy
CPT/HCPCS: 36415; 93005; 80053; 84484; 85025; 85610; 87636; 71046; 99284; 96374; 96375; 96361; J2765; J2405; S0119

== ENCOUNTER 2024-10-29 07:38 | Emergency (ER) | payer BC ==
[2024-10-29 07:44] VITALS: TEMP 97.7
--- NOTE | 2024-10-29 08:00 | ED ---
Abdominal Pain HPI - General Source: patient Mode of arrival: ambulatory Limitations: no limitations <Zunilda Brown - Last Filed: 10/29/24 11:05> <Chong Vera - Last Filed: 10/30/24 07:19> - General Chief Complaint: Abdominal Pain Stated Complaint: Abd pain Time Seen by Provider: 10/29/24 07:56 - History of Present Illness Initial Comments: 49-year-old male with A-fib, DVT (on Plavix), GERD, SEBASTIEN, history of cholecystectomy and gastric sleeve here for right lower quadrant abdominal pain. Patient reported that 2 days ago he began to notice right lower quadrant abdominal pain that was sharp and nonradiating that was worsened with ambulation or stretching with 8 out of 10 intensity at maximum. He feels no pain when he is stationary or lying down. He noticed that he had increased frequent stooling yesterday that was nonbloody. He tried to take a laxative to improve his symptoms yesterday but instead he noticed increased flatus and his pain did not improve which prompted him to seek care. He denied fevers, chills, chest pain, shortness of breath, extremity swelling, palpitations, nausea, vomiting, focal weakness, recent trauma or fall. (Zunilda Brown) - Related Data Home Medications Medication Instructions Recorded Confirmed lisinopriL [Zestril] 10 mg PO DAILY 10/30/19 10/29/24 Atorvastatin Calcium 20 mg PO DAILY 10/17/21 10/29/24 Clopidogrel [Plavix] 75 mg PO DAILY 06/21/23 10/29/24 traZODone HCL [Desyrel] 200 mg PO HS 06/21/23 10/29/24 Metoprolol Succinate (ER) [Toprol 50 mg PO DAILY 10/29/24 10/29/24 XL] Allergies Allergy/AdvReac Type Severity Reaction Status Date / Time cephalexin [From Keflex] AdvReac Rash/Hives Verified 10/29/24 11:14 Review of Systems ROS Other: All systems not noted in ROS Statement are negative. <Zunilda Brown - Last Filed: 10/29/24 11:05> ROS Other: All systems not noted in ROS Statement are negative. <Chong Vera - Last Filed: 10/30/24 07:19> ROS Statement: Those systems with pertinent positive or pertinent negative responses have been documented in the HPI. Past Medical History Past Medical History: Atrial Fibrillation, Blood Disorder, Deep Vein Thrombosis (DVT), GERD/Reflux, Sleep Apnea/CPAP/BIPAP Additional Past Medical History / Comment(s): see Dr Bolanos H&P, Factor V, DVT R leg, no cpap used currently, cellulitis left leg 10/2021 History of Any Multi-Drug Resistant Organisms: None Reported Past Surgical History: Bariatric Surgery, Cholecystectomy, Orthopedic Surgery Additional Past Surgical History / Comment(s): Gastric sleeve, post op abdominal abscess/abdomin washed out, panniculectomy, EGD, colonoscopy, cyst removed from upper back and tailbone, ORIF R ankle (hardware removed), R knee surgery for chip/fracture. Past Anesthesia/Blood Transfusion Reactions: Previous Problems w/ Anesthesia Additional Past Anesthesia/Blood Transfusion Reaction / Comment(s): STATES TAKES LONG TIME TO WAKE UP Past Psychological History: Depression Smoking Status: Never smoker Past Alcohol Use History: None Reported Past Drug Use History: None Reported - Past Family History Father History Unknown: Yes Family Medical History: Congestive Heart Failure ([place]), Myocardial Infarction ([place]) Additional Family Medical History / Comment(s): SEVERAL [place]'S. Mother Family Medical History: No Reported History Additional Family Medical History / Comment(s): HEALTHY Brother(s) History Unknown: Yes Family Medical History: Deep Vein Thrombosis (DVT), Pulmonary Embolus <Zunilda Brown - Last Filed: 10/29/24 11:05> General Exam Limitations: no limitations <Zunilda Brown - Last Filed: 10/29/24 11:05> - General Exam Comments Initial Comments: Physical examination: Vital signs reviewed General: non toxic, no distress, appears at stated age, large habitus Head: atraumatic, normocephalic, symmetric Mouth: no lip lesion, mucus membranes moist Cardiovascular: S1S2 reg, no murmur Lungs: CTA bilateral, no rhonchi, no rales, no accessory muscle use Abdominal: soft, nondistended, tender to light palpation to the right lower quadrant, no guarding, bowel sounds appreciated Ext: muscle strength 5 out of 5 in all 4 extremities grossly, no gross muscle atrophy, no contractures, positive dorsalis pedis pulse bilateral, no edema Neuro: no gross focal neuro deficits Psych: Alert and oriented x3, appropriate affect and mood (Zunilda Brown) Course <Zunilda Brown - Last Filed: 10/29/24 11:05> Vital Signs 10/29/24 10/29/24 10/29/24 07:42 09:57 11:32 Temperature 97.7 F Pulse Rate 65 46 L 51 L Respiratory 18 16 16 Rate Blood Pressure 142/95 112/56 120/67 O2 Sat by Pulse 100 99 99 Oximetry - Reevaluation(s) Reevaluation #1: 10/29/24 10:09 Patient's pain has improved after giving IV Dilaudid and 1 L fluid bolus (Zunilda Brown) Medical Decision Making - Lab Data Result diagrams: 10/29/24 08:31 10/29/24 09:50 <Zunilda Brown - Last Filed: 10/29/24 11:05> - Lab Data Result diagrams: 10/29/24 08:31 10/29/24 09:50 <Chong Vera - Last Filed: 10/30/24 07:19> - Medical Decision Making Was pt. sent in by a medical professional or institution (, PA, COMPUTING TUTOR, urgent care, hospital, or retirement...) When possible be specific @ -[No] Did you speak to anyone other than the patient for history (EMS, parent, family, police, friend...)? What history was obtained from this source @ -[No] Did you review nursing and triage notes (agree or disagree)? Why? @ -[I reviewed and agree with nursing and triage notes] Were old charts reviewed (outside hosp., previous admission, EMS record, old EKG, old radiological studies, urgent care reports/EKG's, retirement records)? Report findings @ -[No old charts were reviewed] Differential Diagnosis? @ -Differential Abdominal Pain Men: Appendicitis, cholecystitis, diverticulosis, ischemic bowel, pancreatitis, hepatitis, UTI, gastroenteritis, AAA, incarcerated hernia, bowel obstruction, constipation, inflammatory bowel, hepatitis, peptic ulcer disease, splenic infarction, perforated viscus, testicular torsion, this is not meant to be an all-inclusive list EKG interpreted by me (3pts min.). @ -[As above] X-rays interpreted by me (1pt min.). @ -[None done] CT interpreted by me (1pt min.). @ -[None done] U/S interpreted by me (1pt. min.). @ -[None done] What testing was considered but not performed or refused? (CT, X-rays, U/S, labs)? Why? @ -[None] What meds were considered but not given or refused? Why? @ -[None] Did you discuss the management of the patient with other professionals (professionals i.e. DrFernando, PA, COMPUTING TUTOR, lab, RT, psych nurse, protective services social worker, front end technician, teacher, business liaison officer, pillowcase folder)? Give summary @ -Dr. Albrecht, supervising physician Was smoking cessation discussed for >3mins.? @ -[No] Was critical care preformed (if so, how long)? @ -[No] Were there social determinants of health that impacted care today? How? (Ho melessness, low income, unemployed, alcoholism, drug addiction, transportation, low edu. Level, literacy, decrease access to med. care, usp, rehab)? @ -[No] Was there de-escalation of care discussed even if they declined (Discuss DNR or withdrawal of care, Hospice)? DNR status @ -[No] What co-morbidities impacted this encounter? (DM, HTN, Smoking, COPD, CAD, Cancer, CVA, ARF, Chemo, Hep., AIDS, mental health diagnosis, sleep apnea, morbid obesity)? @ -[None] Was patient admitted / discharged? Hospital course, mention meds given and route, prescriptions, significant lab abnormalities, going to OR and other pertinent info. @ -Discharge. Ordered CT abdomen pelvis with contrast, IV fluid bolus, and IV Dilaudid. Pain improved with IV Dilaudid and 1 L IV bolus of fluids. CT abdomen pelvis with contrast showed no evidence of acute process, appendicitis, diverticulitis, colitis, small hiatal hernia noted. Advised to return if symptoms worsen or new symptoms occur. Undiagnosed new problem with uncertain prognosis? @ -[No] Drug Therapy requiring intensive monitoring for toxicity (Heparin, Nitro, Insulin, Cardizem)? @ -[No] Were any procedures done? @ -[No] Diagnosis/symptom? @ -[default] Acute, or Chronic, or Acute on Chronic? @ -Acute Uncomplicated (without systemic symptoms) or Complicated (systemic symptoms)? @ -Uncomplicated Side effects of treatment? @ -[No] Exacerbation, Progression, or Severe Exacerbation? @ -[No] Poses a threat to life or bodily function? How? (Chest pain, [place], [place], pneumonia, PE, COPD, DKA, ARF, appy, cholecystitis, CVA, Diverticulitis, Homicidal, Suicidal, threat to staff... and all critical care pts) @ -[No] (Zunilda Brown) I personally saw the patient and performed the critical portion of the service. I discussed the patient care with the resident. I directed management, care planning and final disposition of the patient. This includes, but not limited to, review of all lab work, radiological studies, EKG's, consultations, vital signs, and nursing notes. EKG interpreted by me (3pts min.) @As above X-Rays interpreted by me (1 pt min.) @None CT interpreted by me ( 1pt min.) @CT abdomen pelvis is negative for appendicitis or acute process U/S interpreted by me (1 pt min.) @None Critical care time of 0 minutes excluding separately billable procedures was spent in conjunction with critical care activities provided by the Resident and Attending simultaneously. I was present during no procedures for all critical portions of the procedure and as immediately available to furnish service during the entire procedure. (Chong Vera) - Lab Data Lab Results 10/29/24 10/29/24 10/29/24 Range/Units 08:31 08:31 09:50 WBC 7.59 (4.50-10.00) 10*3/uL RBC 4.82 (4.40-5.60) 10*6/uL Hgb 14.4 (13.0-17.0) g/dL Hct 42.2 (39.6-50.0) % MCV 87.6 (80.0-97.0) fL MCH 29.9 (27.0-32.0) pg MCHC 34.1 (32.0-37.0) g/dL Plt Count 180 (140-440) 10*3/uL MPV 9.9 (9.5-12.2) fL Immature Gran % (Auto) 0.3 % Neutrophils % 52.4 % Lymphocytes % 36.6 % Monocytes % 7.8 % Eosinophils % 2.5 % Basophils % 0.4 % Immature Gran # 0.02 (0.00-0.04) 10*3/uL Neutrophils # 3.98 (1.80-7.70) 10*3/uL Lymphocytes # 2.78 (0.90-5.00) 10*3/uL Monocytes # 0.59 (0.20-1.00) 10*3/uL Eosinophils # 0.19 (0.04-0.35) 10*3/uL Basophils # 0.03 (0.00-0.10) 10*3/uL Sodium 138 (137-145) mmol/L Potassium 4.8 (3.5-5.1) mmol/L Chloride 106 (98-107) mmol/L Carbon Dioxide 23 (22-30) mmol/L Anion Gap 9 mmol/L BUN 20 (9-20) mg/dL Creatinine 0.82 (0.66-1.25) mg/dL Est GFR (CKD-EPI)AfAm >90 (>60 ml/min/1.73 sqM) Est GFR (CKD-EPI)NonAf >90 (>60 ml/min/1.73 sqM) Glucose 80 (74-99) mg/dL Plasma Lactic Acid Gerard 1.1 (0.7-2.0) mmol/L Calcium 8.5 (8.4-10.2) mg/dL Total Bilirubin 0.7 (0.2-1.3) mg/dL AST 23 (17-59) U/L ALT 15 (4-49) U/L Alkaline Phosphatase 80 (38-126) U/L Total Protein 5.7 L (6.3-8.2) g/dL Albumin 3.0 L (3.5-5.0) g/dL Amylase 42 (30-110) U/L Lipase 48 (23-300) U/L Urine Color Urine Appearance (Clear) Urine pH (5.0-8.0) Ur Specific [place] (1.001-1.035) Urine Protein (Negative) Urine Glucose (UA) (Negative) Urine Ketones (Negative) Urine Blood (Negative) Urine Nitrite (Negative) Urine Bilirubin (Negative) Urine Urobilinogen (<2.0) mg/dL Ur Leukocyte Esterase (Negative) 07/15/25 Range/Units 09:57 WBC (4.50-10.00) 10*3/uL RBC (4.40-5.60) 10*6/uL Hgb (13.0-17.0) g/dL Hct (39.6-50.0) % MCV (80.0-97.0) fL MCH (27.0-32.0) pg MCHC (32.0-37.0) g/dL Plt Count (140-440) 10*3/uL MPV (9.5-12.2) fL Immature Gran % (Auto) % Neutrophils % % Lymphocytes % % Monocytes % % Eosinophils % % Basophils % % Immature Gran # (0.00-0.04) 10*3/uL Neutrophils # (1.80-7.70) 10*3/uL Lymphocytes # (0.90-5.00) 10*3/uL Monocytes # (0.20-1.00) 10*3/uL Eosinophils # (0.04-0.35) 10*3/uL Basophils # (0.00-0.10) 10*3/uL Sodium (137-145) mmol/L Potassium (3.5-5.1) mmol/L Chloride (98-107) mmol/L Carbon Dioxide (22-30) mmol/L Anion Gap mmol/L BUN (9-20) mg/dL Creatinine (0.66-1.25) mg/dL Est GFR (CKD-EPI)AfAm (>60 ml/min/1.73 sqM) Est GFR (CKD-EPI)NonAf (>60 ml/min/1.73 sqM) Glucose (74-99) mg/dL Plasma Lactic Acid Gerard (0.7-2.0) mmol/L Calcium (8.4-10.2) mg/dL Total Bilirubin (0.2-1.3) mg/dL AST (17-59) U/L ALT (4-49) U/L Alkaline Phosphatase (38-126) U/L Total Protein (6.3-8.2) g/dL Albumin (3.5-5.0) g/dL Amylase (30-110) U/L Lipase (23-300) U/L Urine Color Light Yellow Urine Appearance Clear (Clear) Urine pH 6.5 (5.0-8.0) Ur Specific [place] 1.038 H (1.001-1.035) Urine Protein Negative (Negative) Urine Glucose (UA) Negative (Negative) Urine Ketones Negative (Negative) Urine Blood Negative (Negative) Urine Nitrite Negative (Negative) Urine Bilirubin Negative (Negative) Urine Urobilinogen <2.0 (<2.0) mg/dL Ur Leukocyte Esterase Negative (Negative) Disposition Is patient prescribed a controlled substance at d/c from ED?: No Time of Disposition: 11:06 <Zunilda Brown - Last Filed: 10/29/24 11:05> <Chong Vera - Last Filed: 10/30/24 07:19> Clinical Impression: Abdominal pain Disposition: HOME SELF-CARE Condition: Good Instructions (If sedation given, give patient instructions): Abdominal Pain (ED) Additional Instructions: Patient advised to return if abdominal pain becomes worse or new symptoms such as intractable nausea, vomiting, diarrhea, blood in stool occur. Advised to eat regular meals and hydrate appropriately. Referrals: Antonio Christensen DO [Primary Care Provider] - 1-2 days
[2024-10-29] MEDS: HYDROmorphone 0.5 MG/0.5 ML SYRINGE IVP STA (08:35)
[2024-10-29] MEDS: PANTOPRAZOLE 40 MG/10 ML VIAL IVP STA (08:36)
[2024-10-29] MEDS: LACTATED RINGERS 1,000 ML IV ONE (08:37)
[2024-10-29 08:38] LABS: Basophils # (A) 0.03 10*3/uL (0.00-0.10); Basophils % (A) 0.4 %; Eosinophils # (A) 0.19 10*3/uL (0.04-0.35); Eosinophils % (A) 2.5 %; HCT 42.2 % (39.6-50.0); HGB 14.4 g/dL (13.0-17.0); Lymphocytes # (A) 2.78 10*3/uL (0.90-5.00); Lymphocytes % (A) 36.6 %; MCH 29.9 pg (27.0-32.0); MCHC 34.1 g/dL (32.0-37.0); MCV 87.6 fL (80.0-97.0); Monocytes # (A) 0.59 10*3/uL (0.20-1.00); Monocytes % (A) 7.8 %; Neutrophils # (A) 3.98 10*3/uL (1.80-7.70); Neutrophils % (A) 52.4 %; Platelet Count 180 10*3/uL (140-440); RBC 4.82 10*6/uL (4.40-5.60); RDW 12.2 % (11.5-14.5); WBC 7.59 10*3/uL (4.50-10.00)
[2024-10-29 09:58] VITALS: RESP 16
[2024-10-29 10:01] LABS: Bilirubin,Urine Negative (Negative); Blood,Urine Negative (Negative); Color,Urine Light Yellow; Glucose,Urine (UA) Negative (Negative); Ketones,Urine Negative (Negative); Leukocyte Esterase,Urine Negative (Negative); Nitrite,Urine Negative (Negative); PH, Urine 6.5 (5.0-8.0); Protein,Urine Negative (Negative); Specific Gravity,Urine 1.038 (1.001-1.035); Urobilinogen,Urine <2.0 mg/dL (<2.0)
--- NOTE | 2024-10-29 10:08 | CT ---
EXAMINATION TYPE: CT abdomen pelvis w con DATE OF EXAM: 10/29/2024 9:50 AM COMPARISON: 11/02/2019. CLINICAL INDICATION: Male, 49 years old with history of abdominal pain; llq pain TECHNIQUE: Axial CT abdomen pelvis w con;Sagittal and coronal reformats were created on a separate w orkstation. Contrast used:100 ml mL of Isovue 300 with IV Contrast, (none if empty) Oral contrast used: without Oral Contrast (none if empty) CT DLP: 3583 mGycm, Automated exposure control for dose reduction was used. FINDINGS: LOWER CHEST: Unremarkable ABDOMEN LIVER: Unremarkable GALLBLADDER AND BILE DUCTS: The gallbladder surgically absent. PANCREAS: Unremarkable. SPLEEN: Unremarkable. ADRENAL GLANDS: Unremarkable. KIDNEYS AND URETERS: No evidence of hydronephrosis or obstructing renal calculus. The ureters are unr emarkable. Simple appearing right renal cyst. No follow-up recommended. PELVIS BLADDER: No evidence for wall thickening or mass given limitations of exam. REPRODUCTIVE: Unremarkable. ABDOMEN & PELVIS STOMACH AND BOWEL: Small hiatal hernia is present. No evidence of bowel obstruction. Postsurgical feliberto nges the gastroesophageal junction. Gastric sleeve changes. PERITONEUM/RETROPERITONEUM: No evidence of pneumoperitoneum or free fluid. VASCULATURE: No evidence of aortic aneurysm. MUSCULOSKELETAL: No acute osseous abnormalities LYMPH NODES: No gross evidence for lymphadenopathy. SOFT TISSUE/ABDOMINAL WALL: Unremarkable IMPRESSION: 1. No evidence for acute process. No obstructive uropathy. No evidence for colitis or diverticulitis . 2. Postsurgical changes to the gastric lumen small hiatal hernia remains. 3. The gallbladder surgically absent. [facility], , 10/29/2024 10:05 AM
[2024-10-29 10:09] LABS: ALT 15 U/L (4-49); African American GFR (CKD) >90 (>60 ml/min/1.73 sqM); Albumin 3.0 g/dL (3.5-5.0); Amylase 42 U/L (30-110); Anion Gap 9 mmol/L; Blood Urea Nitrogen 20 mg/dL (9-20); Calcium 8.5 mg/dL (8.4-10.2); Carbon Dioxide 23 mmol/L (22-30); Chloride 106 mmol/L (98-107); Glucose 80 mg/dL (74-99); Lipase 48 U/L (23-300); Non-African American GFR(CKD) >90 (>60 ml/min/1.73 sqM); Sodium 138 mmol/L (137-145); Total Protein 5.7 g/dL (6.3-8.2)
[2024-10-29 10:13] LABS: AST 23 U/L (17-59); Alkaline Phosphatase 80 U/L (38-126); Potassium 4.8 mmol/L (3.5-5.1)
[2024-10-29 11:33] VITALS: BP 120/67; PULSE 51
== END 2024-10-29 11:33 | disposition home or self-care (01) ==
LOC: EC 07:38
DX: R10.31 Right lower quadrant pain (principal); Z88.1 Allergy status to other antibiotic agents
CPT/HCPCS: 36415; 80053; 82150; 83605; 83690; 85025; 81003; 74177; 99284; 96374; 96375; 96361; J1171; Q9967; J2470